=== PATIENT | female | born 1990 | race Two or more races ===

== ENCOUNTER 2021-01-13 08:00 | Outpatient (REF) | payer OTHER, SELFPAY | END 2021-01-13 08:01 | disposition home or self-care (01) | LOC: HO.LAB 08:00 | PROVIDERS: Visit Provider Internal Medicine | DX: Z20.822 Contact with and (suspected) exposure to COVID-19 (principal) | CPT/HCPCS: 36415; C9803; U0003; U0005 ==

== ENCOUNTER 2021-07-25 12:13 | Outpatient (REF) | payer OTHER, SELFPAY | END 2021-07-25 12:14 | disposition home or self-care (01) | LOC: HO.LAB 12:13 | PROVIDERS: Visit Provider Internal Medicine | DX: Z20.822 Contact with and (suspected) exposure to COVID-19 (principal) | CPT/HCPCS: C9803; U0003; U0005 ==

== ENCOUNTER 2021-08-25 09:53 | Outpatient (REF) | payer OTHER, SELFPAY | END 2021-08-25 09:54 | disposition home or self-care (01) | LOC: HO.LAB 09:53 | PROVIDERS: Visit Provider Internal Medicine | DX: Z20.822 Contact with and (suspected) exposure to COVID-19 (principal) | CPT/HCPCS: C9803; U0003; U0005 ==

== ENCOUNTER 2021-09-22 08:07 | Outpatient (REF) | payer OTHER, SELFPAY | END 2021-09-22 08:08 | disposition home or self-care (01) | LOC: HO.LAB 08:07 | PROVIDERS: Visit Provider Internal Medicine | DX: Z20.822 Contact with and (suspected) exposure to COVID-19 (principal) | CPT/HCPCS: C9803; U0003; U0005 ==

== ENCOUNTER 2021-10-06 13:14 | Outpatient (REF) | payer OTHER, SELFPAY | END 2021-10-06 13:15 | disposition home or self-care (01) | LOC: HO.LAB 13:14 | PROVIDERS: Visit Provider Internal Medicine | DX: Z20.822 Contact with and (suspected) exposure to COVID-19 (principal) | CPT/HCPCS: C9803; U0003; U0005 ==

== ENCOUNTER 2021-11-01 08:26 | Outpatient (REF) | payer OTHER, SELFPAY | END 2021-11-01 08:27 | disposition home or self-care (01) | LOC: HO.LAB 08:26 | PROVIDERS: Visit Provider Internal Medicine | DX: Z20.822 Contact with and (suspected) exposure to COVID-19 (principal) | CPT/HCPCS: C9803; U0003; U0005 ==

== ENCOUNTER 2021-11-29 12:27 | Emergency (ER) | payer OTHER, SELFPAY ==
--- NOTE | ~2021-11-29 | XR_ITS ---
EXAMINATION: RIGHT HAND CLINICAL INFORMATION: Pain COMPARISON: None TECHNIQUE: 4 views of the right hand and wrist FINDINGS: There is no evidence of acute fracture or dislocation of the right hand. No significant soft tissue swelling is seen. Joint spaces are maintained. XR/XR hand wrist RT IMPRESSION: No bony abnormality of the right hand and wrist identified.
[2021-11-29 12:29] VITALS: BP 138/71; PULSE 83; RESP 20; TEMP 36.1; O2SAT 100; BMI 39.7
--- NOTE | 2021-11-29 13:46 | ED_ITS ---
HPI - Extremity Problem General Chief complaint: Extremity Problem <MANPREET Balderas Last Filed: 11/29/21 14:31> Stated complaint: R hand pain <MANPREET Balderas Last Filed: 11/29/21 14:31> Time Seen by Provider: 11/29/21 13:05 <MANPREET Balderas Last Filed: 11/29/21 14:31> Source: patient <MANPREET Balderas Last Filed: 11/29/21 14:31> History of Present Illness HPI Narrative: 31-year-old female at 9 weeks gestation presenting to the emergency department complaining of right wrist/forearm pain worsening x4 days. Admits to history of carpal tunnel, denies known injury/trauma, fall, numbness, tingling, weakness, fever/chills. Denies any -related complaints, admits was recently evaluated at [facility] for vaginal bleeding on 11/22, had ultrasound which showed IUP, admits has addit ional appointment/ultrasound on Saturday. Denies bleeding, vaginal discharge, abdominal pain. <MANPREET Balderas Last Filed: 11/29/21 14:31> MD Complaint: extremity pain <MANPREET Balderas Last Filed: 11/29/21 14:31> Onset (ago): day(s) <MANPREET Balderas Last Filed: 11/29/21 14:31> Related Data Allergies/Adverse reactions: Allergies Allergy/AdvReac Type Severity Reaction Status Date / Time Iodinated Contrast Media Allergy Severe ANAPHYLAXIS Unverified 07/21/20 16:03 [IV CONTRAST] contrast dye Allergy Severe anaphylaxis Uncoded 01/27/20 00:00 <MANPREET Balderas Last Filed: 11/29/21 14:31> Review of Systems Review of Systems: Constitutional: No Fever, No Chills ENT/Mouth: No Ear Pain, No Nasal Congestion,No sore throat, No Rhinorrhea, No Swallowing Difficulty Cardiovascular: No Chest Pain, No SOB Respiratory: No Cough, No Wheezing Gastrointestinal: No Nausea, No Vomiting, No Abdominal pain Genitourinary:, No Dysuria, No Urgency, No Flank Pain Musculoskeletal: + joint pain, No Myalgias, No Joint Swelling Skin: No Skin Lesions, No rash Neuro: No Weakness, No Numbness, No Paresthesias <MANPREET Balderas - Last Filed: 11/29/21 14:31> Yes all other systems are reviewed and are negative <MANPREET Balderas - Last Filed: 11/29/21 14:31> [facility] Past Medical History Attestation statement: The following information was validated with the patient. <MANPREET Balderas - Last Filed: 11/29/21 14:31> Medical History: Medical History delivery delivered <MANPREET Balderas - Last Filed: 11/29/21 14:31> Social History Social History: Social History Advance Directives: No Advance Directives Information Provided: Yes Patient : Yes <MANPREET Balderas - Last Filed: 11/29/21 14:31> Physical Exam Vital Signs: Vital Signs: Last Vital Signs Temp 97 F 11/29/21 12:29 Pulse 83 11/29/21 12:29 Resp 20 11/29/21 12:29 BP 138/71 11/29/21 12:29 Pulse Ox 100 11/29/21 12:29 BMI result Body Mass Index 39.7 <MANPREET Balderas - Last Filed: 11/29/21 14:31> Const: General: cooperative, healthy appearing and no acute distress <MANPREET Balderas - Last Filed: 11/29/21 14:31> Orientation/consciousness: patient oriented x3 <MANPREET Balderas - Last Filed: 11/29/21 14:31> Limitations: no limitations <MANPREET Balderas - Last Filed: 11/29/21 14:31> HENMT: Head: Yes normal to inspection and Yes atraumatic <MANPREET Balderas - Last Filed: 11/29/21 14:31> Ears: hearing grossly normal bilaterally <MANPREET Balderas - Last Filed: 11/29/21 14:31> General nose exam: Normal external nose present <MANPREET Balderas - Last Filed: 11/29/21 14:31> Face and sinus: Yes normal facial exam <MANPREET Balderas - Last Filed: 11/29/21 14:31> Eyes: General: appearance normal, both eyes and all related structures <MANPREET Balderas - Last Filed: 11/29/21 14:31> EOM: EOMs intact bilaterally <Josefa Denton PA - Last Filed: 11/29/21 14:31> Neck: Neck: Yes normal visual inspection and Yes no meningeal signs <Josefa Denton PA - Last Filed: 11/29/21 14:31> Resp: Effort & Inspection: normal respiratory effort <Josefa Denton PA - Last Filed: 11/29/21 14:31> Cardio: Rate: regular rate <Josefa Denton PA - Last Filed: 11/29/21 14:31> Heart sounds: S1 normal heart sound present and S2 normal heart sound present <Josefa Denton PA - Last Filed: 11/29/21 14:31> Peripheral pulses: radial pulses present and ulnar radial pulses present <Josefa Denton PA - Last Filed: 11/29/21 14:31> Skin: Rashes: no rashes <Josefa Denton PA - Last Filed: 11/29/21 14:31> Wounds: no wounds <Josefa Denton PA - Last Filed: 11/29/21 14:31> Neuro: General: patient oriented x3 and no meningeal signs <MANPREET Balderas - Last Filed: 11/29/21 14:31> Gait exam (Neuro): Normal gait present <Josefa Denton PA - Last Filed: 11/29/21 14:31> Extrem: Other: Right wrist with moderate tenderness to palpation. + Tinel's sign, decreased ROM secondary to pain. Distal pulses intact. Cap refill WNL. Sensation intact to light touch. Hand ROM intact. No snuffbox tenderness <Josefa Denton PA - Last Filed: 11/29/21 14:31> General: Yes normal to inspection <MANPREET Balderas - Last Filed: 11/29/21 14:31> Course Course Course Narrative: XR hand wrist RT IMPRESSION: No bony abnormality of the right hand and wrist identified.? >> patient placed in volar splint for comfort and stability. please follow-up with your PCP. worrisome signs and symptoms and strict return precautions discussed, she verbalized understanding feel safe for discharge home at this time <MANPREET Balderas - Last Filed: 11/29/21 14:31> MDM - Extremity (Nontraumatic) MDM Narrative Medical decision making narrative: 31-year-old female at 9 weeks gestation presenting to the emergency department complaining of right wrist/forearm pain worsening x4 days. On exam vital signs stable, NAD, physical exam as above. Concern for carpal tunnel vs strain/sprain. Low concern for fracture/dislocation. No evidence of cellulitis. Low concern for septic joint/arthritis Plan: X-rays <MANPREET Balderas - Last Filed: 11/29/21 14:31> Medical Records Attestation: I reviewed the patient's medical records. <MANPREET Balderas - Last Filed: 11/29/21 14:31> Lab Data Attestation: I reviewed the patient's lab results. <MANPREET Balderas - Last Filed: 11/29/21 14:31> Discharge Plan Discharge Clinical Impression: Acute wrist pain <MANPREET Balderas - Last Filed: 11/29/21 14:31> Patient Disposition: Home, Self-Care <MANPREET Balderas - Last Filed: 11/29/21 14:31> Instructions: Arthralgia (ED) <MANPREET Balderas - Last Filed: 11/29/21 14:31> Additional Instructions: Your x-rays unremarkable. Wear splint at home as needed for comfort and stability. Ice and elevate. Please follow-up with her doctor Due to you being Tylenol is one of the only medications you can take for pain If symptoms persist or worsen, pain becomes unbearable, hand begins to look infected, is red, or is warm please return to the emergency department <MANPREET Balderas - Last Filed: 11/29/21 14:31> Referrals: Physician,Unknown J [Primary Care Provider] - 2 days <MANPREET Balderas - Last Filed: 11/29/21 14:31> Interventions: ED Discharge Assessment Last Done: 11/29/21 14:49 <MANPREET Balderas - Last Filed: 11/29/21 14:31> Discharge Date/Time: 11/29/21 15:01 <MANPREET Balderas - Last Filed: 11/29/21 14:31>
[2021-11-29] MEDS: Acetaminophen 325 MG TABLET 650 MG PO (13:59)
== END 2021-11-29 15:01 | disposition home or self-care (01) ==
PROVIDERS: Emergency Provider Emergency Medicine
DX: O26.891 Other specified pregnancy related conditions, first trimester (principal); M25.531 Pain in right wrist; Z3A.09 9 weeks gestation of pregnancy
CPT/HCPCS: 29125; 73110; 73130; 99283; 99284

== ENCOUNTER 2023-01-24 12:35 | Inpatient (IN) | payer OTHER, SELFPAY ==
--- NOTE | ~2023-01-24 | CT_ITS ---
EXAMINATION: CT ABDOMEN AND PELVIS WITHOUT CONTRAST CLINICAL INFORMATION: CVA tenderness. COMPARISON: None available. TECHNIQUE: Multidetector volumetric imaging was performed from the superior aspect of the liver through the pubic symphysis. Sagittal and coronal reformatted images were obtained on the technologist's workstation. This CT examination was performed using dose optimization techniques as appropriate, variously including the following: *Automated exposure control *Adjustment of mA and/or kV according to patient size (this includes techniques or standardized protocols for targeted exams where dose is matched to indication/reason for exam; i.e. extremities or head) *Use of iterative reconstruction technique DLP: 979 mGy-cm FINDINGS: LUNG BASES: The visualized lung bases are unremarkable. LIVER, GALLBLADDER, AND BILIARY TREE: Changes of diffuse hepatic steatosis on this nonenhanced study. No gross biliary ductal dilatation. Moderate hepatomegaly. No focal lesion grossly. Gallstone within the gallbladder lumen without acute inflammatory changes. PANCREAS: Unremarkable. SPLEEN: Mild splenomegaly measuring up to 13 cm. ADRENAL GLANDS: Unremarkable. KIDNEYS AND URETERS: Right kidney enlarged with perinephric stranding. No gross hydronephrosis. No definite stone disease. Left kidney unremarkable. No perinephric collection. BLADDER: Unremarkable. GASTROINTESTINAL TRACT: The small and large bowel are unremarkable. The appendix is unremarkable. ABDOMINAL WALL: Small fat-containing umbilical hernia. LYMPH NODES: Normal. VASCULAR: Unremarkable. PELVIC VISCERA: Unremarkable. OSSEOUS STRUCTURES: Unremarkable. CT/CT abdomen pelvis wo IV con IMPRESSION: Nonspecific findings right kidney on this nonenhanced study but overall findings favor pyelonephritis. No obstruction. Fleischner guidelines were followed.
[2023-01-24 13:03] VITALS: BP 120/65; PULSE 93; RESP 16; TEMP 36.2; O2SAT 97; BMI 39.5
--- NOTE | 2023-01-24 13:03 | ED.GENADULT ---
HPI - General Adult General Chief complaint: Back Pain/Injury <Vishnu Will - Last Filed: 01/24/23 13:05> Stated complaint: kidney issues <Vishnu Will - Last Filed: 01/24/23 13:05> Time Seen by Provider: 01/24/23 20:41 <Vishnu Will - Last Filed: 01/24/23 13:05> Source: patient <Lila Dahl NP - Last Filed: 01/25/23 00:09> Mode of arrival: ambulatory <Lila Dahl NP - Last Filed: 01/25/23 00:09> Limitations: no limitations <Lila Dahl NP - Last Filed: 01/25/23 00:09> History of Present Illness HPI narrative: 32-year-old female presents with 5 days of flank pain abdominal pain nausea vomiting and fevers. <Lila Dahl NP - Last Filed: 01/25/23 00:09> Onset (ago): day(s) (5) <Lila Dahl NP - Last Filed: 01/25/23 00:09> Location: abdomen <Lila Dahl NP - Last Filed: 01/25/23 00:09> Severity: severe <Lila Dahl NP - Last Filed: 01/25/23 00:09> Severity scale (1-10): 9 <Lila Dahl NP - Last Filed: 01/25/23 00:09> Quality: aching and constant <Lila Dahl NP - Last Filed: 01/25/23 00:09> Pain Consistency: constant <Lila Dahl NP - Last Filed: 01/25/23 00:09> Relieving factors: none <Lila Dahl NP - Last Filed: 01/25/23 00:09> Exacerbating factors: eating and movement <Lila Dahl NP - Last Filed: 01/25/23 00:09> Associated symptoms: fever/chills, malaise, nausea/vomiting and weakness <Lila Dahl NP - Last Filed: 01/25/23 00:09> Treatments prior to arrival: NSAID <Lila Dahl NP - Last Filed: 01/25/23 00:09> Related Data Allergies/adverse reactions: Allergies Allergy/AdvReac Type Severity Reaction Status Date / Time Iodinated Contrast Media Allergy Severe ANAPHYLAXIS Verified 01/24/23 20:48 [IV CONTRAST] contrast dye Allergy Severe anaphylaxis Uncoded 01/27/20 00:00 <Vishnu Will - Last Filed: 01/24/23 13:05> Review of Systems Review of Systems: Constitutional: Positive Fever, positive Chills Cardiovascular: No Chest Pain, No SOB Respiratory: No Cough, No Dyspnea Gastrointestinal: Positive Nausea, positive Vomiting, No Diarrhea, positive abdominal Pain Genitourinary: No Dysuria, No Hematuria Musculoskeletal: positive back pain, No Myalgias, No Joint Swelling Skin: No Skin lacerations, No rash Neuro: Positive Weakness, No Numbness, No Paresthesias, No Loss of Consciousness, positive Dizziness, No Headache <Lila Dahl NP - Last Filed: 01/25/23 00:09> Yes all other systems are reviewed and are negative <Lila Dahl NP - Last Filed: 01/25/23 00:09> [facility] Past Medical History Attestation statement: The following information was validated with the patient. <Lila Dahl NP - Last Filed: 01/25/23 00:09> Source: old records reviewed <Lila Dahl NP - Last Filed: 01/25/23 00:09> Medical History: Medical History delivery delivered <Vishnu Will - Last Filed: 01/24/23 13:05> Social History Social History: Social History Alcohol intake: former Smoked in Last 30 Days: No Use of substances other than those prescribed or required for medical reasons: No Advance Directives: No Advance Directives Information Provided: Yes Patient : No <Vishnu Will - Last Filed: 01/24/23 13:05> Physical Exam ED Vital Signs: Vital Signs - 24 hr 01/24/23 13:03 01/24/23 19:52 01/24/23 20:50 Temperature 97.1 F 99.1 F 102.6 F H Pulse Rate 93 95 97 Respiratory Rate 16 19 22 H Blood Pressure 120/65 118/68 125/63 Pulse Oximetry 97 97 96 Oxygen Delivery Method Room Air Room Air Room Air 01/24/23 21:53 01/24/23 22:58 Temperature 100.0 F 99.1 F Pulse Rate 87 85 Respiratory Rate 20 14 Blood Pressure 112/60 110/48 L Pulse Oximetry Oxygen Delivery Method BMI result Body Mass Index 39.5 <Vishnu Will - Last Filed: 01/24/23 13:05> Vital Signs - 24 hr 01/24/23 13:03 01/24/23 19:52 01/24/23 20:50 Temperature 97.1 F 99.1 F 102.6 F H Pulse Rate 93 95 97 Respiratory Rate 16 19 22 H Blood Pressure 120/65 118/68 125/63 Pulse Oximetry 97 97 96 Oxygen Delivery Method Room Air Room Air Room Air 01/24/23 21:53 01/24/23 22:58 Temperature 100.0 F 99.1 F Pulse Rate 87 85 Respiratory Rate 20 14 Blood Pressure 112/60 110/48 L Pulse Oximetry Oxygen Delivery Method BMI result Body Mass Index 39.5 <Lila Dahl NP - Last Filed: 01/25/23 00:09> Appearance: Alert. Oriented X3. Moderate distress. Septic. Eyes: Pupils equal, round and reactive to light. ENT: Pharynx normal. Neck: Normal inspection. Neck supple. CVS: Tachycardic heart rate and rhythm. Pulses normal. Respiratory: No respiratory distress. Breath sounds normal. Abdomen: Soft and diffusely tender with CVA tenderness. Skin: Skin warm and dry. Normal skin color. Normal skin turgor. Extremities: No lower extremity edema. Gait not assessed for safety. Neuro: No motor deficit. No sensory deficit. Cranial nerves 2-12 intact. <Lila Dahl NP - Last Filed: 01/25/23 00:09> Course Course Course Narrative: RME- 32 year old female presents for evaluation of right flank pain and urinary urgency. Reports her PCP told her she had bacteria in her urine. Patient's doctor was concerned for pyelonephritis. Labs and UA ordered. Patient is non toxic appearing <Vishnu Will - Last Filed: 01/24/23 13:05> RME- 32 year old female presents for evaluation of right flank pain and urinary urgency. Reports her PCP told her she had bacteria in her urine. Patient's doctor was concerned for pyelonephritis. Labs and UA ordered. Patient is non toxic appearing 20:44 labs drawn while patient was in the emergency department waiting room. White count elevated at 20. At the time of my evaluation, patient is febrile at 0102 with heart rate of 97. Sepsis alert called. Order for ceftriaxone, lactic, cultures, and fluids at 30 milliliters/kilogram. At this time I have a high suspicion for pyelonephritis she does have positive urinalysis and physical exam is consistent with pyelo. 21:47 CT scan abdomen pelvis positive for pyelonephritis. Discussion with hospitalist, patient will be admitted for pyelonephritis, UTI sepsis. <Lila Dahl NP - Last Filed: 01/25/23 00:09> Consultations Consultation #1: Hospitalist <Lila Dahl NP - Last Filed: 01/25/23 00:09> Medications Administered Discontinued Medications Generic Name Dose Route Start Last Admin Trade Name Scottq PRN Reason Stop Dose Admin Ceftriaxone Sodium 1 gm/ 50 mls @ 100 mls/hr 01/24/23 20:44 01/24/23 22:10 Sodium Chloride IV 01/24/23 21:13 Infused ONCE ONE Infusion Sodium Chloride 3,333.9 mls @ 3,333.9 mls/hr 01/24/23 20:44 01/24/23 21:12 Ns 30 ml/kg infuse over 1 hr (3333.9 ml) 01/24/23 21:43 3,333.9 mls/hr IV Administration .Q1H STA Ketorolac Tromethamine 30 mg 01/24/23 20:44 01/24/23 21:17 Ketorolac Tromethamine 30 Mg/Ml Vial IVPUSH 01/24/23 20:45 30 mg ONCE ONE Administration Morphine Sulfate 4 mg 01/24/23 20:44 01/24/23 21:17 Morphine Sulfate 4 Mg/Ml Cartridge IVPUSH 01/24/23 20:45 4 mg ONCE ONE Administration Protocol Ondansetron HCl 4 mg 01/24/23 20:44 01/24/23 21:17 Ondansetron Hcl 4 Mg/2 Ml Vial IVPUSH 01/24/23 20:45 4 mg ONCE ONE Administration <Vishnu Will - Last Filed: 01/24/23 13:05> Medications Administered Discontinued Medications Generic Name Dose Route Start Last Admin Trade Name Franck PRN Reason Stop Dose Admin Ceftriaxone Sodium 1 gm/ 50 mls @ 100 mls/hr 01/24/23 20:44 01/24/23 22:10 Sodium Chloride IV 01/24/23 21:13 Infused ONCE ONE Infusion Sodium Chloride 3,333.9 mls @ 3,333.9 mls/hr 01/24/23 20:44 01/24/23 21:12 Ns 30 ml/kg infuse over 1 hr (3333.9 ml) 01/24/23 21:43 3,333.9 mls/hr IV Administration .Q1H STA Ketorolac Tromethamine 30 mg 01/24/23 20:44 01/24/23 21:17 Ketorolac Tromethamine 30 Mg/Ml Vial IVPUSH 01/24/23 20:45 30 mg ONCE ONE Administration Morphine Sulfate 4 mg 01/24/23 20:44 01/24/23 21:17 Morphine Sulfate 4 Mg/Ml Cartridge IVPUSH 01/24/23 20:45 4 mg ONCE ONE Administration Protocol Ondansetron HCl 4 mg 01/24/23 20:44 01/24/23 21:17 Ondansetron Hcl 4 Mg/2 Ml Vial IVPUSH 01/24/23 20:45 4 mg ONCE ONE Administration <Lila Dahl NP - Last Filed: 01/25/23 00:09> Medical Decision Making Differential Diagnosis Differential Diagnoses: The differential diagnosis associated with the presentation includes <Lila Dahl NP - Last Filed: 01/25/23 00:09> UTI, sepsis, pyelonephritis, acute abdomen <Lila Dahl NP - Last Filed: 01/25/23 00:09> Admission/Observation Consideration of admission/observation: Escalation of care including admission/observation considered <Lila Dahl NP - Last Filed: 01/25/23 00:09> Patient will require admission <Lila Dahl NP - Last Filed: 01/25/23 00:09> Consult Healthcare Provider Management of the patient was discussed with: Hospitalist <Lila Dahl NP - Last Filed: 01/25/23 00:09> Lab Data MDM Lab Attestation statement: I reviewed the patient's lab results. <Lila Dahl NP - Last Filed: 01/25/23 00:09> Result Diagrams: 01/24/23 13:12 01/24/23 13:12 <Vishnu RadhaAlexisTom Green - Last Filed: 01/24/23 13:05> Labs: Lab Results 01/24/23 01/24/23 01/24/23 Range/Units 13:12 13:12 13:12 WBC 20.4 H (4.8-10.8) X10*3/uL RBC 4.37 (4.20-5.50) X10*6/uL Hgb 12.9 (12.0-16.0) g/dl Hct 39.1 (37.0-47.0) % MCV 89.5 (80.0-98.0) fL MCH 29.5 (27.0-33.0) pg MCHC 33.0 (31.0-35.0) g/dl RDW 12.4 (11.0-16.0) % Plt Count 260 (160-400) X10*3/uL MPV 9.2 L (9.4-12.3) fL Immature Gran % (Auto) 0.5 H (0.0-0.4) % Neut % (Auto) 76.6 H (45-73) % Lymph % (Auto) 14.3 L (20-40) % [place] % (Auto) 8.2 (2-11) % Eos % (Auto) 0.1 (0-4) % Baso % (Auto) 0.3 (0-2) % Lymph # (Auto) 2.9 (1.2-4.9) X10*3/uL [place] # (Auto) 1.7 H (0.1-1.2) X10*3/uL Eos # (Auto) 0.0 (0.0-0.4) X10*3/uL Baso # (Auto) 0.1 (0.0-0.2) X10*3/uL Abs Immat Gran (auto) 0.11 H (0.00-0.03) X10*3/uL Absolute Neuts (auto) 15.6 H (2.0-8.3) x10*3/uL Absolute Nucleated RBC 0.000 (0.0-0.012) X10*3/uL Nucleated RBC % (auto) 0.0 (0.0-0.2) /100WBC Smear Tech's Comments VERIFIED Sodium 141 (135-145) mmol/L Potassium 3.3 (3.3-5.1) mmol/L Chloride 102 (96-108) mmol/L Carbon Dioxide 28 (22-29) mmol/L Anion Gap 14 (12-20) BUN 7 L (9-16) mg/dL Creatinine 0.80 (0.5-1.4) mg/dL Estim Creat Clear Calc 128.7 Estimated GFR > 60 Random Glucose 115 (60-115) mg/dL Lactic Acid (0.5-2.0) mmol/L Calcium 8.9 (8.4-10.2) mg/dL Urine Color Dark Yellow Urine Appearance Cloudy Urine pH 6.0 (5.0-9.0) Ur Specific [place] 1.025 (1.005-1.025) Urine Protein 100 (2+) H (Neg-Trace) mg/dL Urine Glucose (UA) Negative (Negative) mg/dL Urine Ketones Trace (Negative) mg/dL Urine Blood Trace H (Negative) Urine Nitrite Negative (Negative) Ur Leukocyte Esterase Small (1+) H (Negative) Urine RBC 6-10 H (0-2) /HPF Urine WBC 21-50 H (0-5) /HPF Ur Squamous Epith Cells 11-20 (0-2) /HPF Urine Bacteria 1+ (None Seen) Hyaline Casts 0-2 (0-2) /LPF 01/24/23 Range/Units 20:59 WBC (4.8-10.8) X10*3/uL RBC (4.20-5.50) X10*6/uL Hgb (12.0-16.0) g/dl Hct (37.0-47.0) % MCV (80.0-98.0) fL MCH (27.0-33.0) pg MCHC (31.0-35.0) g/dl RDW (11.0-16.0) % Plt Count (160-400) X10*3/uL MPV (9.4-12.3) fL Immature Gran % (Auto) (0.0-0.4) % Neut % (Auto) (45-73) % Lymph % (Auto) (20-40) % [place] % (Auto) (2-11) % Eos % (Auto) (0-4) % Baso % (Auto) (0-2) % Lymph # (Auto) (1.2-4.9) X10*3/uL [place] # (Auto) (0.1-1.2) X10*3/uL Eos # (Auto) (0.0-0.4) X10*3/uL Baso # (Auto) (0.0-0.2) X10*3/uL Abs Immat Gran (auto) (0.00-0.03) X10*3/uL Absolute Neuts (auto) (2.0-8.3) x10*3/uL Absolute Nucleated RBC (0.0-0.012) X10*3/uL Nucleated RBC % (auto) (0.0-0.2) /100WBC Smear Tech's Comments Sodium (135-145) mmol/L Potassium (3.3-5.1) mmol/L Chloride (96-108) mmol/L Carbon Dioxide (22-29) mmol/L Anion Gap (12-20) BUN (9-16) mg/dL Creatinine (0.5-1.4) mg/dL Estim Creat Clear Calc Estimated GFR Random Glucose (60-115) mg/dL Lactic Acid 1.0 (0.5-2.0) mmol/L Calcium (8.4-10.2) mg/dL Urine Color Urine Appearance Urine pH (5.0-9.0) Ur Specific [place] (1.005-1.025) Urine Protein (Neg-Trace) mg/dL Urine Glucose (UA) (Negative) mg/dL Urine Ketones (Negative) mg/dL Urine Blood (Negative) Urine Nitrite (Negative) Ur Leukocyte Esterase (Negative) Urine RBC (0-2) /HPF Urine WBC (0-5) /HPF Ur Squamous Epith Cells (0-2) /HPF Urine Bacteria (None Seen) Hyaline Casts (0-2) /LPF <Vishnu Will - Last Filed: 01/24/23 13:05> Lab Results 01/24/23 01/24/2301/24/23 Range/Units 13:12 13:12 13:12 WBC 20.4 H (4.8-10.8) X10*3/uL RBC 4.37 (4.20-5.50) X10*6/uL Hgb 12.9 (12.0-16.0) g/dl Hct 39.1 (37.0-47.0) % MCV 89.5 (80.0-98.0) fL MCH 29.5 (27.0-33.0) pg MCHC 33.0 (31.0-35.0) g/dl RDW 12.4 (11.0-16.0) % Plt Count 260 (160-400) X10*3/uL MPV 9.2 L (9.4-12.3) fL Immature Gran % (Auto) 0.5 H (0.0-0.4) % Neut % (Auto) 76.6 H (45-73) % Lymph % (Auto) 14.3 L (20-40) % [place] % (Auto) 8.2 (2-11) % Eos % (Auto) 0.1 (0-4) % Baso % (Auto) 0.3 (0-2) % Lymph # (Auto) 2.9 (1.2-4.9) X10*3/uL [place] # (Auto) 1.7 H (0.1-1.2) X10*3/uL Eos # (Auto) 0.0 (0.0-0.4) X10*3/uL Baso # (Auto) 0.1 (0.0-0.2) X10*3/uL Abs Immat Gran (auto) 0.11 H (0.00-0.03) X10*3/uL Absolute Neuts (auto) 15.6 H (2.0-8.3) x10*3/uL Absolute Nucleated RBC 0.000 (0.0-0.012) X10*3/uL Nucleated RBC % (auto) 0.0 (0.0-0.2) /100WBC Smear Tech's Comments VERIFIED Sodium 141 (135-145) mmol/L Potassium 3.3 (3.3-5.1) mmol/L Chloride 102 (96-108) mmol/L Carbon Dioxide 28 (22-29) mmol/L Anion Gap 14 (12-20) BUN 7 L (9-16) mg/dL Creatinine 0.80 (0.5-1.4) mg/dL Estim Creat Clear Calc 128.7 Estimated GFR > 60 Random Glucose 115 (60-115) mg/dL Lactic Acid (0.5-2.0) mmol/L Calcium 8.9 (8.4-10.2) mg/dL Urine Color Dark Yellow Urine Appearance Cloudy Urine pH 6.0 (5.0-9.0) Ur Specific [place] 1.025 (1.005-1.025) Urine Protein 100 (2+) H (Neg-Trace) mg/dL Urine Glucose (UA) Negative (Negative) mg/dL Urine Ketones Trace (Negative) mg/dL Urine Blood Trace H (Negative) Urine Nitrite Negative (Negative) Ur Leukocyte Esterase Small (1+) H (Negative) Urine RBC 6-10 H (0-2) /HPF Urine WBC 21-50 H (0-5) /HPF Ur Squamous Epith Cells 11-20 (0-2) /HPF Urine Bacteria 1+ (None Seen) Hyaline Casts 0-2 (0-2) /LPF 01/24/ Range/Units 20:59 WBC (4.8-10.8) X10*3/uL RBC (4.20-5.50) X10*6/uL Hgb (12.0-16.0) g/dl Hct (37.0-47.0) % MCV (80.0-98.0) fL MCH (27.0-33.0) pg MCHC (31.0-35.0) g/dl RDW (11.0-16.0) % Plt Count (160-400) X10*3/uL MPV (9.4-12.3) fL Immature Gran % (Auto) (0.0-0.4) % Neut % (Auto) (45-73) % Lymph % (Auto) (20-40) % [place] % (Auto) (2-11) % Eos % (Auto) (0-4) % Baso % (Auto) (0-2) % Lymph # (Auto) (1.2-4.9) X10*3/uL [place] # (Auto) (0.1-1.2) X10*3/uL Eos # (Auto) (0.0-0.4) X10*3/uL Baso # (Auto) (0.0-0.2) X10*3/uL Abs Immat Gran (auto) (0.00-0.03) X10*3/uL Absolute Neuts (auto) (2.0-8.3) x10*3/uL Absolute Nucleated RBC (0.0-0.012) X10*3/uL Nucleated RBC % (auto) (0.0-0.2) /100WBC Smear Tech's Comments Sodium (135-145) mmol/L Potassium (3.3-5.1) mmol/L Chloride (96-108) mmol/L Carbon Dioxide (22-29) mmol/L Anion Gap (12-20) BUN (9-16) mg/dL Creatinine (0.5-1.4) mg/dL Estim Creat Clear Calc Estimated GFR Random Glucose (60-115) mg/dL Lactic Acid 1.0 (0.5-2.0) mmol/L Calcium (8.4-10.2) mg/dL Urine Color Urine Appearance Urine pH (5.0-9.0) Ur Specific [place] (1.005-1.025) Urine Protein (Neg-Trace) mg/dL Urine Glucose (UA) (Negative) mg/dL Urine Ketones (Negative) mg/dL Urine Blood (Negative) Urine Nitrite (Negative) Ur Leukocyte Esterase (Negative) Urine RBC (0-2) /HPF Urine WBC (0-5) /HPF Ur Squamous Epith Cells (0-2) /HPF Urine Bacteria (None Seen) Hyaline Casts (0-2) /LPF <Lila Dahl NP - Last Filed: 01/25/23 00:09> Independent Interpretation I performed an independent interpretation of an: CT Scan <Lila Dahl NP - Last Filed: 01/25/23 00:09> Radiology Impression Discussion of test interpretation with radiology: I have reviewed the radiologist's reading. <Lila Dahl NP - Last Filed: 01/25/23 00:09> Radiologist Impression: FINDINGS: LUNG BASES: The visualized lung bases are unremarkable.? LIVER, GALLBLADDER, AND BILIARY TREE: Changes of diffuse hepatic steatosis on this nonenhanced study. No gross biliary ductal dilatation. Moderate hepatomegaly. No focal lesion grossly. Gallstone within the gallbladder lumen without acute inflammatory changes.? PANCREAS: Unremarkable.? SPLEEN: Mild splenomegaly measuring up to 13 cm.? ADRENAL GLANDS: Unremarkable.? KIDNEYS AND URETERS: Right kidney enlarged with perinephric stranding. No gross hydronephrosis. No definite stone disease. Left kidney unremarkable. No perinephric collection.? BLADDER: Unremarkable.? GASTROINTESTINAL TRACT: The small and large bowel are unremarkable. The appendix is unremarkable.? ABDOMINAL WALL: Small fat-containing umbilical hernia.? LYMPH NODES: Normal. VASCULAR: Unremarkable. PELVIC VISCERA: Unremarkable.? OSSEOUS STRUCTURES: Unremarkable.? CT/CT abdomen pelvis wo IV con IMPRESSION: Nonspecific findings right kidney on this nonenhanced study but overall findings favor pyelonephritis. No obstruction.? ? Fleischner guidelines were followed. <Lila Dahl NP - Last Filed: 01/25/23 00:09> External Record Review External record reviewed: Outpatient record and Prior outpatient labs <Lila Dahl NP - Last Filed: 01/25/23 00:09> Prescription Management I considered prescription management with: Antibiotic <Lila Dahl NP - Last Filed: 01/25/23 00:09> Discharge Plan Discharge Clinical Impression: Pyelonephritis, Sepsis <Vishnu Will - Last Filed: 01/24/23 13:05> Patient Disposition: Admitted As Inpatient <Vishnu Will - Last Filed: 01/24/23 13:05>
[2023-01-24 13:17] LABS: Basophils Absolute Auto 0.1 X10*3/uL (0.0-0.2); Basophils Percent Auto 0.3 % (0-2); Eosinophils Percent Auto 0.1 % (0-4); Hematocrit 39.1 % (37.0-47.0); Hemoglobin 12.9 g/dl (12.0-16.0); Imm Gran Abs Auto 0.11 X10*3/uL (0.00-0.03); Imm Gran Pct Auto 0.5 % (0.0-0.4); Lymphocytes Absolute Auto 2.9 X10*3/uL (1.2-4.9); Lymphocytes Percent Auto 14.3 % (20-40); MANUAL DIFF FLAG SCAN; Mean Corpuscular Hemoglobin 29.5 pg (27.0-33.0); Mean Corpuscular Volume 89.5 fL (80.0-98.0); Mean Platelet Volume 9.2 fL (9.4-12.3); Monocytes Absolute Auto 1.7 X10*3/uL (0.1-1.2); Monocytes Percent Auto 8.2 % (2-11); Neutrophils Absolute Auto 15.6 x10*3/uL (2.0-8.3); Neutrophils Percent Auto 76.6 % (45-73); Platelet Count 260 X10*3/uL (160-400); Red Blood Count 4.37 X10*6/uL (4.20-5.50); Red Cell Distribution Width 12.4 % (11.0-16.0); SCAN SMEAR FLAG 1; White Blood Count 20.4 X10*3/uL (4.8-10.8)
[2023-01-24 13:20] LABS: Appearance Urine Cloudy; Color Urine Dark Yellow; Glucose Urine UA Negative (Negative); Leukocyte Esterase Urine Small (1+) (Negative); Nitrite Urine Negative (Negative); Specific Gravity - Urine 1.025 (1.005-1.025); UMIC TRIGGER UACC YES; Urine Blood Trace (Negative); Urine Ketones Trace mg/dL (Negative); Urine Protein 100 (2+) mg/dL (Neg-Trace)
[2023-01-24 13:25] LABS: Bacteria Urine 1+ (None Seen); Hyaline Casts Urine 0-2 /LPF (0-2); UACC Culture Trigger YES; WBC Urine 21-50 /HPF (0-5)
[2023-01-24 13:36] LABS: SLIDE REVIEW VERIFIED
[2023-01-24 13:43] LABS: Anion Gap 14 (12-20); Blood Urea Nitrogen 7 mg/dL (9-16); Calcium 8.9 mg/dL (8.4-10.2); Carbon Dioxide 28 mmol/L (22-29); Chloride 102 mmol/L (96-108); Creatinine Clr Calc Pharmacy 128.7; Estimated Glomerular Filt Rate > 60; Glucose Random 115 mg/dL (60-115); Potassium 3.3 mmol/L (3.3-5.1); Sodium 141 mmol/L (135-145)
[2023-01-24 19:52] VITALS: BP 118/68; PULSE 95; RESP 19; TEMP 37.3; O2SAT 97
--- NOTE | 2023-01-24 20:13 | PC.NURSE ---
Pt a&ox4, reporting lower back pain which is now radiating to the front lower abdomen. Inspection of back reveals back unremarkable. Pt reports tenderness upon palpation of both sides of back.
[2023-01-24 20:50] VITALS: BP 125/63; PULSE 97; RESP 22; TEMP 39.2; O2SAT 96
[2023-01-24] MEDS: SODIUM CHLORIDE 3333.9 ML IV (21:12)
[2023-01-24] MEDS: cefTRIAXone sodium 1 GM in 0.9 % Sodium Chloride 50 ML IV (21:13)
[2023-01-24] MEDS: ondansetron HCL 4 MG/2 ML VIAL IVPUSH (21:17)
[2023-01-24] MEDS: Morphine Sulfate 4 MG/ML CARTRIDGE IVPUSH (21:17)
[2023-01-24] MEDS: Ketorolac Tromethamine 30 MG/ML VIAL IVPUSH (21:17)
--- NOTE | 2023-01-24 21:38 | PC.NURSE ---
at &ox3, febrile, other vss, 20G IV placed left AC, labs drawn, sepsis fluids initiated, medicated per provider order, pt pending CT scan results.
[2023-01-24 21:53] VITALS: BP 112/60; PULSE 87; RESP 20; TEMP 37.8
[2023-01-24 22:58] VITALS: BP 110/48; PULSE 85; RESP 14; TEMP 37.3
--- NOTE | 2023-01-24 23:07 | P.HPHOSP_ITS ---
History of Present Illness Date of Service: 01/24/23 Chief Complaint: Flank pain 32-year-old female with no significant past medical history who presents to the hospital with complaints of flank pain since Saturday. Reports no urinary symptoms, pain is on the right side, nonradiating, constant, she has no fever or chills, states that she went to her PCP, gave a urine sample, was called the next day and told to come to the hospital. Reports no headache or change in vision, no chest pain, no shortness of breath, no abdominal pain, no lower extremity edema. Vitals are significant for fever of 102.6, respiratory rate of 22, blood pressure stable Labs are significant for WBC count of 20.4, UA positive for leukocyte Estrace, WBC, bacteria Abdomen pelvic CT shows pyelonephritis with no obstruction Patient started on IV antibiotics and will be admitted for further management Review of Systems Review of Systems: Yes all other systems are reviewed and are negative PMFSH Medical History delivery delivered Social History Alcohol intake: former Smoked in Last 30 Days: No Use of substances other than those prescribed or required for medical reasons: No Advance Directives: No Advance Directives Information Provided: Yes Patient : No Meds Allergies Allergy/AdvReac Type Severity Reaction Status Date / Time Iodinated Contrast Media Allergy Severe ANAPHYLAXIS Verified 01/24/23 20:48 [IV CONTRAST] contrast dye Allergy Severe anaphylaxis Uncoded 01/27/20 00:00 Active Medications: Current Medications Acetaminophen (Acetaminophen 325 Mg Tablet) 650 mg PO Q6H PRN PRN Reason: Pain, Mild (Pain Scale 1-3) Docusate Sodium (Docusate Sodium 100 Mg Capsule) 100 mg PO DAILY PRN PRN Reason: Constipation Enoxaparin Sodium (Enoxaparin Sodium 40 Mg/0.4 Ml Syringe) 40 mg SUBCUT Q24H МАРИЯ Ceftriaxone Sodium 1 gm/ (Sodium Chloride) 50 mls @ 100 mls/hr IV Q24H МАРИЯ Morphine Sulfate (Morphine Sulfate 4 Mg/Ml Cartridge) 4 mg IVPUSH Q4H PRN; Protocol PRN Reason: Pain, Severe (Pain Scale 7-10) Ondansetron HCl (Ondansetron Hcl 4 Mg/2 Ml Vial) 4 mg IVPUSH Q8H PRN PRN Reason: Nausea and Vomiting Sodium Chloride (0.9 % Sodium Chloride Flush 3 Ml Syringe) 3 ml IVFLUSH QSHIFT [facility] Home Medications Medication Instructions Recorded Confirmed Last Taken Type aripiprazole 5 mg tablet 5 mg PO DAILY 01/25/23 Unknown History hydroxyzine HCl 25 mg tablet 12.5 - 25 mg PO BID PRN anxiety 01/25/23 Unknown History valacyclovir 500 mg tablet 500 mg PO BID 01/25/23 Unknown History Physical Exam Vital Signs and Narrative: Vital Signs: Last Vital Signs Temp 99.1 F 01/24/23 22:58 Pulse 85 01/24/23 22:58 Resp 14 01/24/23 22:58 BP 110/48 L 01/24/23 22:58 Pulse Ox 96 01/24/23 20:50 O2 Del Method Room Air 01/24/23 20:50 BMI result Body Mass Index 39.5 Const: General: cooperative and no acute distress Orientation/consciousness: patient oriented x3 Eyes: General: appearance normal, both eyes and all related structures Resp: Effort & Inspection: normal respiratory effort Auscultation: clear to auscultation bilaterally Cardio: Rate: regular rate Rhythm: regular rhythm GI: Palpation (GI): Soft to palpation Auscultation: normal bowel sounds : Other: Right CVA tenderness Skin: General skin exam: no rashes or lesions noted Neuro: General: patient oriented x3 Cognition (Neuro): normal cognition Extrem: General: Yes normal to inspection and Yes no pedal edema Results Labs 01/24/23 13:12 01/24/23 13:12 Labs: Laboratory Results - last 24 hr 01/24/23 01/24/23 01/24/23 13:12 13:12 13:12 MCV 89.5 MCH 29.5 MCHC 33.0 RDW 12.4 Plt Count 260 MPV 9.2 L Immature Gran % (Auto) 0.5 H Neut % (Auto) 76.6 H Lymph % (Auto) 14.3 L [place] % (Auto) 8.2 Eos % (Auto) 0.1 Baso % (Auto) 0.3 Lymph # (Auto) 2.9 [place] # (Auto) 1.7 H Eos # (Auto) 0.0 Baso # (Auto) 0.1 Abs Immat Gran (auto) 0.11 H Absolute Neuts (auto) 15.6 H Absolute Nucleated RBC 0.000 Nucleated RBC % (auto) 0.0 Smear Tech's Comments VERIFIED Anion Gap 14 Estim Creat Clear Calc 128.7 Estimated GFR > 60 Random Glucose 115 Lactic Acid Calcium 8.9 Urine Color Dark Yellow Urine Appearance Cloudy Urine pH 6.0 Ur Specific [place] 1.025 Urine Protein 100 (2+) H Urine Glucose (UA) Negative Urine Ketones Trace Urine Blood Trace H Urine Nitrite Negative Ur Leukocyte Esterase Small (1+) H Urine RBC 6-10 H Urine WBC 21-50 H Ur Squamous Epith Cells 11-20 Urine Bacteria 1+ Hyaline Casts 0-2 01/24/23 20:59 MCV MCH MCHC RDW Plt Count MPV Immature Gran % (Auto) Neut % (Auto) Lymph % (Auto) [place] % (Auto) Eos % (Auto) Baso % (Auto) Lymph # (Auto) [place] # (Auto) Eos # (Auto) Baso # (Auto) Abs Immat Gran (auto) Absolute Neuts (auto) Absolute Nucleated RBC Nucleated RBC % (auto) Smear Tech's Comments Anion Gap Estim Creat Clear Calc Estimated GFR Random Glucose Lactic Acid 1.0 Calcium Urine Color Urine Appearance Urine pH Ur Specific [place] Urine Protein Urine Glucose (UA) Urine Ketones Urine Blood Urine Nitrite Ur Leukocyte Esterase Urine RBC Urine WBC Ur Squamous Epith Cells Urine Bacteria Hyaline Casts Imaging Radiologist's Impressions: Impressions Abdomen/Pelvis CT 01/24/23 21:14 IMPRESSION: Nonspecific findings right kidney on this nonenhanced study but overall findings favor pyelonephritis. No obstruction. Fleischner guidelines were followed. Assessment and Plan (1) Sepsis: Status: Acute (2) Pyelonephritis: Status: Acute (3) UTI (urinary tract infection): Status: Acute Plan 32-year-old female with no significant past medical history presents [facility] the hosp [facility] with complaints of flank pain found to have UTI/pyelonephritis # sepsis - secondary to UTI/pyelonephritis - has fever, tachypneic, leukocytosis - will treat with IV antibiotics - follow cultures # acute UTI/pyelonephritis - patient positive for UTI, imaging shows pyelonephritis - will treat with IV antibiotics - follow cultures DVT prophylaxis: Lovenox Patient's need for IV antibiotics patient require minimum 2 nights inpatient hospital stay for further management and monitoring Time Spent With Patient Time: Total time managing care of this patient today ____ minutes. Quality Stroke Does the patient have a stroke diagnosis?: No VTE Prior VTE?: No VTE Risk Level:: Medical - moderate - high VTE Device Contraindication: Treatment Not Indicated VTE Drug Contraindication: N/A - Med Ordered
--- NOTE | 2023-01-24 23:23 | PC.NURSE ---
assumed care of patient at 2300 - patient resting comfortably on stretcher. has no current complaints. reports relief of pain but states she is just very tired from the morphine administration. iv fluids running per sepsis protocol. pt on court monitor. vital signs stable. call branch within reach. will CTM
[2023-01-25] VITALS (7 sets, daily range): BP systolic 107–126; BP diastolic 41–71; PULSE 61–88; RESP 16–19; TEMP 36.8–37.3; O2SAT 94–99; BMI 40.9
[2023-01-25 00:36] LABS: COVID-19 Test Negative (Negative); IDNOW Serial# 9DB6401D
--- NOTE | 2023-01-25 01:09 | PC.NURSE ---
iv fluids still running
[2023-01-25] MEDS: Morphine Sulfate 4 MG/ML CARTRIDGE IVPUSH ×5 (02:12→22:57)
[2023-01-25] MEDS: Enoxaparin Sodium 40 MG/0.4 ML SYRINGE SUBCUT ×2 (02:12→21:24)
[2023-01-25 06:50] LABS: MANUAL DIFF FLAG NO
[2023-01-25 06:54] LABS: Basophils Percent Auto 0.3 % (0-2); Eosinophils Percent Auto 0.2 % (0-4); Hematocrit 33.5 % (37.0-47.0); Hemoglobin 10.8 g/dl (12.0-16.0); Imm Gran Abs Auto 0.08 X10*3/uL (0.00-0.03); Imm Gran Pct Auto 0.6 % (0.0-0.4); Lymphocytes Absolute Auto 2.1 X10*3/uL (1.2-4.9); Lymphocytes Percent Auto 15.2 % (20-40); Mean Corpuscular HGB Conc 32.2 g/dl (31.0-35.0); Mean Corpuscular Volume 90.1 fL (80.0-98.0); Mean Platelet Volume 9.3 fL (9.4-12.3); Monocytes Absolute Auto 1.3 X10*3/uL (0.1-1.2); Monocytes Percent Auto 9.1 % (2-11); Neutrophils Absolute Auto 10.5 x10*3/uL (2.0-8.3); Neutrophils Percent Auto 74.6 % (45-73); Platelet Count 225 X10*3/uL (160-400); Red Blood Count 3.72 X10*6/uL (4.20-5.50); Red Cell Distribution Width 12.4 % (11.0-16.0)
[2023-01-25] MEDS: 0.9 % Sodium Chloride Flush 3 ML SYRINGE IVFLUSH ×3 (07:07→22:58)
[2023-01-25] MEDS: Acetaminophen 325 MG TABLET 650 MG PO (07:09)
--- NOTE | 2023-01-25 07:10 | PC.NURSE ---
Patient resting comfortably no distress ntoed, denies chest pain or SOB reports headache tylenol admin. AOx 4 neuros intact. IV flushes wih ease no sign or symptoms of infiltration will CTM
[2023-01-25 07:22] LABS: Anion Gap 16 (12-20); Blood Urea Nitrogen 7 mg/dL (9-16); Carbon Dioxide 20 mmol/L (22-29); Chloride 108 mmol/L (96-108); Estimated Glomerular Filt Rate > 60; Glucose Random 93 mg/dL (60-115); Potassium 3.4 mmol/L (3.3-5.1); Sodium 141 mmol/L (135-145)
--- NOTE | 2023-01-25 08:40 | PHA.MEDREC ---
Pharmacy Consult ? Medication Reconciliation Pharmacy has completed the medication reconciliation. Spoke to patient who knew medications
[2023-01-25 09:28] LABS: HCG Quantitative < 2 mIU/mL
[2023-01-25] MEDS: valACYclovir HCL 500 MG TABLET PO (09:53)
[2023-01-25] MEDS: ARIPiprazole 5 MG TABLET PO (09:53)
--- NOTE | 2023-01-25 11:48 | PC.NURSE ---
Report to jake MAJOR will prepare for transport
[2023-01-25] MEDS: ondansetron HCL 4 MG/2 ML VIAL IVPUSH (13:14)
--- NOTE | 2023-01-25 16:20 | P.PNIM_ITS ---
Subjective Subjective Date of Service: 01/26/23 Interval History: Flank pain Review of Systems still has right flank pain ,nauseated ,no fevers Physical Exam Vital Signs: Vital Signs: Last Vital Signs Temp 99.1 F 01/25/23 14:57 Pulse 83 01/25/23 14:57 Resp 18 01/25/23 14:57 BP 120/59 L 01/25/23 14:57 Pulse Ox 95 01/25/23 14:57 O2 Del Method Room Air 01/25/23 14:57 BMI result Body Mass Index 40.9 Appearance: Alert.? Oriented X3.? not in distress.? cvs: rrr, [id number] , no murmur res: clear to auscultation ,no rhonchii or wheezing abd: no rebound or guarding ,right flank pain/soarness , bs present. ext pulses present , no cyanosis. neuro: axo3 , nonfocal. Objective Data Active Medications Acetaminophen (Acetaminophen 325 Mg Tablet) 650 mg PO Q6H PRN PRN Reason: Pain, Mild (Pain Scale 1-3) Last Admin: 01/25/23 07:09 Dose: 650 mg Documented By: JENNY Albuterol Sulfate (Albuterol Sulfate 90 Mcg 8 Gm Inhaler) 1 puff INHALE QID PRN PRN Reason: Wheezing Aripiprazole (Aripiprazole 5 Mg Tablet) 5 mg PO DAILY [facility] Last Admin: 01/25/23 09:53 Dose: 5 mg Documented By: JENNY Docusate Sodium (Docusate Sodium 100 Mg Capsule) 100 mg PO DAILY PRN PRN Reason: Constipation Enoxaparin Sodium (Enoxaparin Sodium 40 Mg/0.4 Ml Syringe) 40 mg SUBCUT Q24H [facility] Last Admin: 01/25/23 02:12 Dose: 40 mg Documented By: MIKE Fluticasone Propionate (Fluticasone Propionate 100 Mcg Blst.W.Dev) 1 puff INHALE RDAILY [facility] Hydroxyzine HCl (Hydroxyzine Hcl 25 Mg Tablet) 12.5 mg PO BID PRN PRN Reason: anxiety Ceftriaxone Sodium 1 gm/ (Sodium Chloride) 50 mls @ 100 mls/hr IV Q24H [facility] Morphine Sulfate (Morphine Sulfate 4 Mg/Ml Cartridge) 4 mg IVPUSH Q4H PRN; Protocol PRN Reason: Pain, Severe (Pain Scale 7-10) Last Admin: 01/25/23 13:18 Dose: 4 mg Documented By: NATACHA Ondansetron HCl (Ondansetron Hcl 4 Mg/2 Ml Vial) 4 mg IVPUSH Q8H PRN PRN Reason: Nausea and Vomiting Last Admin: 01/25/23 13:14 Dose: 4 mg Documented By: NATACHA Sodium Chloride (0.9 % Sodium Chloride Flush 3 Ml Syringe) 3 ml IVFLUSH QSHIFT [facility] Last Admin: 01/25/23 07:07 Dose: 3 ml Documented By: JENNY Valacyclovir HCl (Valacyclovir Hcl 500 Mg Tablet) 500 mg PO BID [facility] Last Admin: 01/25/23 09:53 Dose: 500 mg Documented By: JENNY Labs 01/25/23 06:29 01/25/23 06:29 Labs: Laboratory Results - last 24 hr 01/24/23 01/25/23 01/25/23 20:59 00:17 06:29 MCV 90.1 MCH 29.0 MCHC 32.2 RDW 12.4 Plt Count 225 MPV 9.3 L Immature Gran % (Auto) 0.6 H Neut % (Auto) 74.6 H Lymph % (Auto) 15.2 L Pickett % (Auto) 9.1 Eos % (Auto) 0.2 Baso % (Auto) 0.3 Lymph # (Auto) 2.1 Pickett # (Auto) 1.3 H Eos # (Auto) 0.0 Baso # (Auto) 0.0 Abs Immat Gran (auto) 0.08 H Absolute Neuts (auto) 10.5 H Absolute Nucleated RBC 0.000 Nucleated RBC % (auto) 0.0 Anion Gap Estim Creat Clear Calc Estimated GFR Random Glucose Lactic Acid 1.0 Calcium Beta HCG, Quant COVID-19 ([facility]) Negative COVID-19 Clin Com See Note 01/25/23 01/25/23 06:29 08:55 MCV MCH MCHC RDW Plt Count MPV Immature Gran % (Auto) Neut % (Auto) Lymph % (Auto) Pickett % (Auto) Eos % (Auto) Baso % (Auto) Lymph # (Auto) Pickett # (Auto) Eos # (Auto) Baso # (Auto) Abs Immat Gran (auto) Absolute Neuts (auto) Absolute Nucleated RBC Nucleated RBC % (auto) Anion Gap 16 Estim Creat Clear Calc 141.0 Estimated GFR > 60 Random Glucose 93 Lactic Acid Calcium 8.0 L D Beta HCG, Quant < 2 COVID-19 ([facility]) COVID-19 Clin Com Microbiology Microbiology Results: Microbiology 01/24/23 Unknown Urine Culture - Final Urine clean catch - Urine kearns top Assessment and Plan (1) UTI (urinary tract infection): Status: Acute (2) Pyelonephritis: Status: Acute (3) Sepsis: Status: Acute Plan 32-year-old female with no significant past medical history presents to the [facility] with complaints of flank pain found to have UTI/pyelonephritis # sepsis - secondary to UTI/pyelonephritis - has fever, tachypneic, leukocytosis,blood/urine cultures pendin - will treat with IV antibiotics - follow cultures # acute UTI/pyelonephritis - patient positive for UTI, imaging shows pyelonephritis - will treat with IV antibiotics - follow cultures DVT prophylaxis: Lovenox inpatient need: sepsis/acute uti- continue iv antibiotics Time Spent With Patient Time: Total time managing care of this patient today ____ minutes. Quality Stroke Does the patient have a stroke diagnosis?: No VTE Prior VTE?: No VTE Risk Level:: Medical - moderate - high VTE Device Contraindication: Treatment Not Indicated VTE Drug Contraindication: N/A - Med Ordered
[2023-01-25] MEDS: cefTRIAXone sodium 1 GM in 0.9 % Sodium Chloride 50 ML IV (21:23)
[2023-01-26 03:21] VITALS: BP 116/57; PULSE 66; RESP 16; TEMP 36.1; O2SAT 99
[2023-01-26 07:21] VITALS: BP 124/70; PULSE 73; RESP 18; TEMP 36.6; O2SAT 99
[2023-01-26] MEDS: 0.9 % Sodium Chloride Flush 3 ML SYRINGE IVFLUSH (08:12)
[2023-01-26] MEDS: Fluticasone Propionate 100 MCG BLST.W.DEV 1 PUFF INHALE (09:35)
--- NOTE | 2023-01-26 10:07 | PM.DS ---
DS: Providers Provider Date of Service: 01/26/23 Date of admission: 01/24/23 23:05 Date of discharge: 01/26/23 Primary care physician: MANPREET Paredes DS: Diagnosis Discharge Diagnosis (1) UTI (urinary tract infection): Status: Acute (2) Pyelonephritis: Status: Acute (3) Sepsis: Status: Acute DS: Summary Hospital Course Hospital Course: 32-year-old female with no significant past medical history who presents to the hospital with complaints of flank pain since Saturday.? Reports no urinary symptoms, pain is on the right side, nonradiating, constant, she has no fever or chills, states that she went to her PCP, gave a urine sample, was called the next day and told to come to the hospital.? Reports no headache or change in vision, no chest pain, no shortness of breath, no abdominal pain, no lower extremity edema. Vitals are significant for fever of 102.6, respiratory rate of 22, blood pressure stable Labs are significant for WBC count of 20.4, UA positive for leukocyte Estrace, WBC, bacteria Abdomen pelvic CT shows pyelonephritis with no obstruction Patient started on IV antibiotics and will be admitted for further management. hospital course: 32y/o F was admitted with sepsis sec to uti: Started on IV antibiotics seems seems to be improving, leukocytosis trending down, no fever, blood culture negative. Urine culture seems to be mixed teto. Patient will be going home with p.o. antibiotics. Plan: Complete course of antibiotics Follow-up outpatient Above management discussed the patient detail and she understand and in agreement with the above plan, time spent 50 minute. Time Spent with Patient Time attestation: Total time managing care of this patient today ____ minutes. Discharge coordination time: Greater than 30 minutes Quality: Safe Use of Opioids Does Pt have an Active Cancer Diagnosis on the Problem List?: No Quality: Stroke Does the patient have a stroke diagnosis?: No Physical Exam Vital Signs: Vital Signs: Last Vital Signs Temp 97.8 F 01/26/23 07:21 Pulse 73 01/26/23 07:21 Resp 18 01/26/23 07:21 BP 124/70 01/26/23 07:21 Pulse Ox 99 01/26/23 07:21 O2 Del Method Room Air 01/26/23 07:21 BMI result Body Mass Index 40.9 Appearance: Alert.? Oriented X3.? not in distress.? cvs: rrr, [id number] , no murmur res: clear to auscultation ,no rhonchii or wheezing abd: no rebound or guarding ,right flank pain/soarness , bs present. ext pulses present , no cyanosis. neuro: axo3 , nonfocal. DS: Data Data Completed and Pending Labs on day of discharge: Preliminary micro results at discharge 01/24/23 20:59 Blood Culture - Preliminary Blood - Venous No growth after 24 hours. 01/24/23 20:59 Blood Culture - Preliminary Blood - Venous No growth after 24 hours. Imaging Chest x-ray: Radiologist's impression: ITS Impressions Abdomen/Pelvis CT 01/24/23 21:14 IMPRESSION: Nonspecific findings right kidney on this nonenhanced study but overall findings favor pyelonephritis. No obstruction. Fleischner guidelines were followed. Discharge Plan Discharge Anticipated Discharge Date/Time: 01/26/23 07:32 Patient Disposition: Home, Self-Care Discharge Diagnosis: Sepsis secondary to UTI. Referrals: Gwendolyn Cunningham PA [Primary Care Provider] - 1 Week Discharge Medications: New cefuroxime axetil 500 mg tablet 500 mg PO BID Qty: 20 0RF Continued valacyclovir 500 mg tablet 500 mg PO BID hydroxyzine HCl 25 mg tablet 12.5 - 25 mg PO BID PRN (Reason: anxiety) aripiprazole 5 mg tablet 5 mg PO DAILY albuterol sulfate 90 mcg/actuation Hfa Aerosol Inhaler 1 inh INHALATION QID PRN (Reason: Wheezing) fluticasone propionate [Flovent HFA] 110 mcg/actuation HFA aerosol inhaler 1 puff INHALATION BID Discharge Orders: Discharge Order (Routine); Ordered 01/26/23 Ordered By: Viviana Beauchamp Diet: Advance to usual diet Activity on Discharge: As tolerated Stand Alone Forms: Patient Portal Discharge page Care Plan Goals: Patient was admitted to urinary infection: Started on IV antibiotics seems seems to be improving, leukocytosis trending down, no fever, blood culture negative. Urine culture seems to be mixed teto. Patient will be going home with p.o. antibiotics. Health Concerns: As above. Plan of Treatment: As above. Assessment: As above.
--- NOTE | 2023-01-26 11:40 | MHC.CM.PN ---
PT REPORTS SHE LIVES AT HOME WITH HER 2 CHILDREN AGES 6Y AND 7M SHE REPORTS SHE IS INDEPENDENT WITH CARE, HAS NO DME AND NO SERVICES PT REPORTS SHE IS NOT COVID VAX SHE COMPLETED A HCP TODAY NAMING HER MOTHER HER AGENT PCP: JEAN CLAUDE SOLOMON PT WILL DC HOME TODAY WITH NO SERVICES FAMILY WILL TRANSPORT
== END 2023-01-26 10:36 | disposition home or self-care (01) | DRG 720 ==
LOC: HO.ED 23:33 → HO.EDOVER 23:36 → HO.S3 01-25 11:31
PROVIDERS: Nurse Practitioner Family; Physician Assistant; Admitting Provider Internal Medicine; Emergency Provider Emergency Medicine; PCP Physician Assistant; Visit Provider Internal Medicine
DX: A41.9 Sepsis, unspecified organism (principal); E66.9 Obesity, unspecified; N10 Acute pyelonephritis; Z20.822 Contact with and (suspected) exposure to COVID-19; Z79.51 Long term (current) use of inhaled steroids; Z68.41 Body mass index [BMI] 40.0-44.9, adult; Z91.041 Radiographic dye allergy status; Z79.899 Other long term (current) drug therapy
CPT/HCPCS: 36415; 74176; 80048; 81001; 83605; 84702; 85025; 87040; 87086; 87635; 99221; 99285; J0696; J1650; J1885; J2270; J2405

== ENCOUNTER 2024-01-28 08:32 | Emergency (ER) | payer OTHER, SELFPAY ==
--- NOTE | ~2024-01-28 | XR_ITS ---
EXAMINATION: XR HAND/WRIST, RIGHT CLINICAL INFORMATION: Pain COMPARISON: Previous x-ray November 2021 TECHNIQUE: PA, lateral, and oblique views of the right hand and wrist. FINDINGS: The bones and soft tissues are normal. No fracture. Alignment is anatomic. Joint spaces are maintained. No erosions or soft tissue calcifications. XR/XR hand wrist RT IMPRESSION: Normal radiographs of the hand and wrist.
[2024-01-28 08:38] VITALS: BP 137/65; PULSE 60; RESP 18; TEMP 36.7; O2SAT 96; BMI 41.2
--- NOTE | 2024-01-28 10:16 | ED.EXTPRO ---
HPI - Extremity Problem General Chief complaint: Extremity Injury, Upper Stated complaint: R hand inj Time Seen by Provider: 01/28/24 09:08 Source: patient and RN notes reviewed Mode of arrival: ambulatory Limitations: no limitations History of Present Illness HPI Narrative: This is a 33-year-old female, with a history of carpal tunnel syndrome, presenting to the emergency department with complaints of atraumatic right wrist pain x3 days. Patient denies any recent trauma, injury, or repetitive motions. 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 She states that she has had worsening pain and immobility to her right wrist over the last 3 days. She denies any fevers, chills, chest pain, shortness of breath, abdominal pain, nausea, vomiting or diarrhea. She is tried wearing her carpal tunnel splints which has provided her with some relief. She states that this does not feel like her carpal tunnel she has had in the past. No numbness or tingling. She is otherwise feeling well. No other complaints or concerns at this time. MD Complaint: extremity pain Onset (ago): day(s) Pain Consistency: constant Location: right and upper extremity Quality: aching Radiation: none Relieving factors: nothing Exacerbating factors: nothing Associated symptoms: denies other symptoms Related Data Home Medications Medication Instructions Recorded Confirmed albuterol sulfate 90 mcg/actuation 1 inh inhalation QID PRN Wheezing 01/25/23 01/25/23 aerosol inhaler aripiprazole 5 mg tablet 5 mg PO DAILY 01/25/23 01/25/23 fluticasone propionate 110 1 puff inhalation BID 01/25/23 01/25/23 mcg/actuation HFA aerosol inhaler (Flovent HFA) hydroxyzine HCl 25 mg tablet 12.5 - 25 mg PO BID PRN anxiety 01/25/23 01/25/23 valacyclovir 500 mg tablet 500 mg PO BID 01/25/23 01/25/23 Previous Rx's Medication Instructions Recorded cefuroxime axetil 500 mg tablet 500 mg PO BID #20 tabs 01/26/23 ibuprofen 600 mg tablet 600 mg PO Q6H PRN pain #30 tabs 01/28/24 Allergies Allergy/AdvReac Type Severity Reaction Status Date / Time Iodinated Contrast Media Allergy Severe ANAPHYLAXIS Verified 01/24/23 20:48 [IV CONTRAST] contrast dye Allergy Severe anaphylaxis Uncoded 01/27/20 00:00 Review of Systems Review of Systems: Yes all other systems are reviewed and are negative Constitutional: Constitutional: Reports as per [facility] Past Medical History Medical History delivery delivered Social History Social History Household Members: Family Housing: House Do you presently have visiting nurse or other home services: No Unable to assess alcohol history related to: Unknown Alcohol intake: former Patient Tobacco Use Status: Never used Tobacco Smoked in Last 30 Days: No e-Cigarette/Vaping Use: Former Use Use of substances other than those prescribed or required for medical reasons: No Advance Directives: No service: No Current occupational status: unemployed Physical Exam Vital Signs: Vital Signs: Last Vital Signs Temp 98.0 F 01/28/24 08:38 Pulse 60 01/28/24 08:38 Resp 18 01/28/24 08:38 BP 137/65 01/28/24 08:38 Pulse Ox 96 01/28/24 08:38 O2 Del Method Room Air 01/28/24 08:38 BMI result Body Mass Index 41.2 Const: General: cooperative, comfortable and no acute distress Orientation/consciousness: patient oriented x3 Limitations: no limitations HEENT: Head: Yes normal to inspection, Yes normocephalic and Yes atraumatic Ears: hearing grossly normal bilaterally General nose exam: Normal external nose present Face and sinus: Yes normal facial exam Mouth: Normal oral and palatal mucosa present, oropharynx normal and moist mucous membranes Throat: Yes posterior oropharynx normal Eyes: General: appearance normal, both eyes and all related structures Eyelids: Yes eyelids normal Conjunctivae: conjunctivae normal Sclerae: sclerae normal Pupils: Equal, round and reactive pupils present EOM: EOMs intact bilaterally Neck: Neck: Yes normal visual inspection, Yes full ROM and Yes no lymphadenopathy Lymphatic: no lymphadenopathy noted Chest: Chest palpation & inspection: normal inspection of the chest Resp: Effort & Inspection: normal respiratory effort and able to speak in complete sentences Auscultation: clear to auscultation bilaterally, no crackles, no rales, no rhonchi and no wheezes Cardio: Rate: regular rate Rhythm: regular rhythm Heart sounds: S1 normal heart sound present and S2 normal heart sound present GI: Inspection: Yes normal to inspection Skin: General skin exam: no rashes or lesions noted Trauma: no lacerations or abrasions Wounds: no wounds Neuro: General: patient oriented x3 and moves all extremities Cranial nerves: Yes Equal, round and reactive pupils present Extrem: Other: Right wrist, with no bony abnormality or obvious swelling. No erythema or edema. Range of motion is full and intact however with pain noted. Negative prior negative Phalen's, negative Tinel's test. She has positive Olive test. Strong radial pulse General: Yes normal to inspection Right upper extremity: normal to inspection Left upper extremity: normal to inspection Right lower extremity: normal to inspection Left lower extremity: normal to inspection Medications Administered Discontinued Medications Generic Name Dose Route Start Last Admin Trade Name Freq PRN Reason Stop Dose Admin Ibuprofen 600 mg 01/28/24 10:17 01/28/24 10:24 Ibuprofen 600 Mg Tablet PO 01/28/24 10:18 600 mg ONCE ONE Administration Medical Decision Making Medical Decision Making MDM Narrative: This is a 33-year-old female, with a history of carpal tunnel syndrome, presenting to the emergency department with complaints of right wrist pain x3 days. No trauma or injury. No repetitious movements however she states that she takes care of her 2-year-old child. On examination, patient has a positive Olive's test, concerning for de Quervain's tenosynovitis. Discussed findings with patient. X-ray was obtained which revealed no acute bony abnormalities. She was given ibuprofen in an apartment. Other differential diagnoses considered carpal tunnel, sprain, strain, less likely septic arthritis. Patient placed in thumb spica splint, given referral to Orthopedics if symptoms worsen. If any new or worsening symptoms occur, she was advised to return. She understands and agrees with plan. Patient stable for discharge. Differential Diagnosis Differential Diagnoses: The differential diagnosis associated with the presentation includes See above Admission/Observation Consideration of admission/observation: Escalation of care including admission/observation considered Escalation of care including admission/observation considered however given workup today not warranted at this time. Radiology Impression Discussion of test interpretation with radiology: I have reviewed the radiologist's reading. Radiologist Impression: EXAMINATION: XR HAND/WRIST, RIGHT CLINICAL INFORMATION: Pain COMPARISON: Previous x-ray November 2021 TECHNIQUE: PA, lateral, and oblique views of the right hand and wrist. FINDINGS: The bones and soft tissues are normal. No fracture. Alignment is anatomic. Joint spaces are maintained. No erosions or soft tissue calcifications. XR/XR hand wrist RT IMPRESSION: Normal radiographs of the hand and wrist. Dictated By: Jenny Chun MD Procedures Orthopedic Splinting/Casting Injury #1: Side: right Upper Extremity Injury Location: wrist Upper Extremity Immobilizer: thumb spica Additional Comments: Thumb spica splint, velcro Discharge Plan Discharge Clinical Impression: De Quervain's tenosynovitis Patient Disposition: Home, Self-Care Instructions: Tenosynovitis (ED) Additional Instructions: You were seen in the emergency department due to right wrist pain. You have physical exam findings concerning for de Quervain's tenosynovitis. This is disorder that causes inflammation within the wrist and is very common. Please take ibuprofen as directed for the next several days to reduce inflammation. I am also placing you in a splint, wear this for comfort and pain relief. I am also referring you to orthopedics, if your symptoms persist over the next several weeks you may want to follow-up with them for further management treatment. If any new or worsening symptoms occur including but not limited to worsening pain, swelling, fevers, chills, please return for re-evaluation. Prescriptions: New ibuprofen 600 mg tablet 600 mg PO Q6H PRN (Reason: pain) Qty: 30 0RF No Action valacyclovir 500 mg tablet 500 mg PO BID hydroxyzine HCl 25 mg tablet 12.5 - 25 mg PO BID PRN (Reason: anxiety) aripiprazole 5 mg tablet 5 mg PO DAILY albuterol sulfate 90 mcg/actuation Hfa Aerosol Inhaler 1 inh INHALATION QID PRN (Reason: Wheezing) fluticasone propionate [Flovent HFA] 110 mcg/actuation HFA aerosol inhaler 1 puff INHALATION BID cefuroxime axetil 500 mg tablet 500 mg PO BID Qty: 20 0RF Referrals: [facility] [Provider Group] Interventions: ED Discharge Assessment Last Done: 01/28/24 11:14
[2024-01-28] MEDS: Ibuprofen 600 MG TABLET PO (10:24)
[2024-01-28 11:14] VITALS: BP 125/65; PULSE 57; RESP 16; TEMP 36.6; O2SAT 98
== END 2024-01-28 11:14 | disposition home or self-care (01) ==
PROVIDERS: Emergency Provider Emergency Medicine; PCP Physician Assistant
DX: S69.91XA Unspecified injury of right wrist, hand and finger(s), initial encounter (principal); M65.4 Radial styloid tenosynovitis [de Quervain]; M25.531 Pain in right wrist; X58.XXXA Exposure to other specified factors, initial encounter; Y93.9 Activity, unspecified; Y92.9 Unspecified place or not applicable; Y99.8 Other external cause status
CPT/HCPCS: 29125; 73110; 73130; 99283; 99284

== ENCOUNTER 2024-08-05 07:47 | Outpatient (AMB) | payer OTHER, SELFPAY ==
[2024-08-05 07:49] VITALS: BMI 41.2
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
== END 2024-08-05 08:13 | disposition home or self-care (01) ==
PROVIDERS: PCP Physician Assistant; Visit Provider Orthopaedic Surgery
DX: M25.561 Pain in right knee (principal)
CPT/HCPCS: 99203; G2211

== ENCOUNTER 2024-08-05 13:29 | Emergency (ER) | payer OTHER, SELFPAY ==
--- NOTE | ~2024-08-05 | XR_ITS ---
EXAMINATION: XR CHEST CLINICAL INFORMATION: Chest pain COMPARISON: Chest x-ray April 01, 2013 TECHNIQUE: 2 views of the chest were obtained. FINDINGS: No significant abnormality is noted involving the heart, lungs, mediastinum, bony thorax or soft tissues. XR/XR chest 2V IMPRESSION: Unremarkable examination. Electronically signed by: Cas Cerrato MD 08/05/2024 02:58 PM EDT RP
--- NOTE | 2024-08-05 13:30 | ECG_ITS ---
Test Reason : chest pain Blood Pressure : / mmHG Vent. Rate : 072 BPM Atrial Rate : 072 BPM P-R Int : 154 ms QRS Dur : 084 ms QT Int : 386 ms P-R-T Axes : 053 013 -03 degrees QTc Int : 422 ms Normal sinus rhythm with sinus arrhythmia Normal ECG When compared with ECG of 12-MAR-2008 09:30, Nonspecific T wave abnormality now evident in Anterior leads Referred By: Rose Brandt Electronically Signed By:ERIKA BRIAN
[2024-08-05 13:32] VITALS: BP 124/61; PULSE 64; RESP 16; TEMP 36.2; O2SAT 100; BMI 40.1
--- NOTE | 2024-08-05 13:38 | ED_ITS ---
HPI - General Adult General Chief complaint: Chest Pain Stated complaint: cp Time Seen by Provider: 08/05/24 16:24 Source: patient Mode of arrival: ambulatory Limitations: no limitations History of Present Illness ED Provider: Hakan REYES HPI narrative: 34-year-old female with pmh of asthma presens to the ED for left sided chest pain with pleurisy since yesterday. Patient states chest wall pain that is worse on movement. Patient denies any leg swelling, calf pain, coughing up blood, or any oral control pills. Patient denies any history of blood clots, travel or recent surgery. Patient states started having chest wall pain after lifting son. Related Data Home Medications ?Medication ?Instructions ?Recorded ?Confirmed albuterol sulfate 90 mcg/actuation 1 inh inhalation QID PRN Wheezing 01/25/23 08/05/24 aerosol inhaler aripiprazole 5 mg tablet 5 mg PO DAILY 01/25/23 08/05/24 fluticasone propionate 110 1 puff inhalation BID 01/25/23 08/05/24 mcg/actuation HFA aerosol inhaler (Flovent HFA) hydroxyzine HCl 25 mg tablet 12.5 - 25 mg PO BID PRN anxiety 01/25/23 08/05/24 valacyclovir 500 mg tablet 500 mg PO BID 01/25/23 08/05/24 Previous Rx's ?Medication ?Instructions ?Recorded cefuroxime axetil 500 mg tablet 500 mg PO BID #20 tabs 01/26/23 ibuprofen 600 mg tablet 600 mg PO Q6H PRN pain #30 tabs 01/28/24 naproxen 500 mg tablet 500 mg PO BID PRN pain 7 days #14 08/05/24 tabs Allergies Allergy/AdvReac Type Severity Reaction Status Date / Time Iodinated Contrast Media Allergy Severe ANAPHYLAXIS Verified 08/05/24 13:40 [IV CONTRAST] contrast dye Allergy Severe anaphylaxis Uncoded 08/05/24 13:40 Review of Systems 2 Review of Systems: chest pain Yes all other systems are reviewed and are negative PMFSH Past Medical History Medical History delivery delivered Social History Social History Household Members: Family Housing: House Do you presently have visiting nurse or other home services: No Unable to assess alcohol history related to: Unknown Alcohol intake: former Patient Tobacco Use Status: Never used Tobacco e-Cigarette/Vaping Use: Former Use Advance Directives: No Advance Directives Information Provided: No Do you have a plan to hurt others: No Plan service: No Current occupational status: unemployed Physical Exam ED Vital Signs: Vital Signs - 24 hr 08/05/24 13:32 08/05/24 15:59 08/05/24 17:24 Temperature 97.2 F 98.4 F 98.1 F Pulse Rate 64 57 60 Respiratory Rate 16 16 16 Blood Pressure 124/61 121/57 L 101/65 Pulse Oximetry 100 100 99 Oxygen Delivery Method Room Air Room Air Room Air 08/05/24 18:10 Temperature 98.1 F Pulse Rate 60 Respiratory Rate 16 Blood Pressure 101/65 Pulse Oximetry 99 Oxygen Delivery Method Room Air BMI result Body Mass Index 40.1 Const General: cooperative, healthy appearing, comfortable, no acute distress, well developed, alert, awake and Physically active Orientation/consciousness: patient oriented x3 HENMT Head: Yes normal to inspection, Yes No palpable skull fracture present, Yes normocephalic and Yes atraumatic Eyes General: appearance normal, both eyes and all related structures Neck Neck: Yes normal visual inspection, Yes full ROM, Yes no lymphadenopathy, Yes no meningeal signs, Yes trachea midline, Yes supple, No anterior neck swelling and No tender Chest Chest palpation & inspection: normal inspection of the chest Chest/axillae images: 2 1. Tenderness on palpation. Negative swelling, ecchymosis, erythema, rash, crepitus, or deformity. Resp Effort & Inspection: normal respiratory effort and able to speak in complete sentences Auscultation: clear to auscultation bilaterally Cardio Jugular venous distension: no JVD Heart sounds: S1 normal heart sound present and S2 normal heart sound present GI Inspection: Yes normal to inspection Palpation (GI): Soft to palpation, not firm, nontender, no guarding and not rigid General: Yes no CVA tenderness Back/Spine/Pelvis Back: no CVA tenderness and No back tenderness Skin General skin exam: no rashes or lesions noted, elasticity normal and turgor normal Neuro General: patient oriented x3, gait normal, tone normal, moves all extremities, Normal light touch and pain sensation, no meningeal signs, no focal motor deficits, CN's II-XI intact bilaterally and normal sensation to monofilament Extrem Other: Bilateral lower extremity negative for swelling, pitting edema, or calf tenderness. General: Yes normal to inspection and Yes full ROM Psych Appearance: grossly normal, well kempt and not disheveled Course Course Course Narrative: This is a rapid medical exam performed by Kitty Brandt NP: Additional HPI, ROS, PE not included below will be deferred to primary provider. Patient is a 34-year-old female with history of asthma, bilateral oopherectomy presenting with complaint of sharp chest pain since last night. Worse with inspiration. Plan: EKG, labs, CXR Medical Decision Making Medical Decision Making MDM Narrative: [age] of female presents to ED for shortness of breath, chest pain on range of motion of the torso/extremities and pleurisy. Patient denies any recent trauma, recent long travel, recent surgery, recent control use, any history of blood clots. EKG sinus rhythm. Two troponins negative. D-dimer is negative. Perc score is 0. BNP negative. Patient is safe for discharge. Patient is explained worrisome signs and informed to follow up with primary care provider. Not suspecting PE, myocardial infarction, CHF, pneumonia, hemothorax, pneumothorax, and aortic dissection. Differential Diagnosis Differential Diagnoses: The differential diagnosis associated with the presentation includes (PE, pneumonia, pneumothorax, hemothorax, chest wall strain) Admission/Observation Consideration of admission/observation: Escalation of care including admission/observation considered Lab Data 08/05/24 14:17 08/05/24 14:17 Labs: Lab Results 08/05/24 08/05/24 Range/Units 14:17 16:59 WBC 10.9 H (4.8-10.8) X10*3/uL RBC 4.39 (4.20-5.50) X10*6/uL Hgb 13.6 D (12.0-16.0) g/dl Hct 40.5 D (37.0-47.0) % MCV 92.3 (80.0-98.0) fL MCH 31.0 (27.0-33.0) pg MCHC 33.6 (31.0-35.0) g/dl RDW 12.4 (11.0-16.0) % Plt Count 237 (160-400) X10*3/uL MPV 10.1 (9.4-12.3) fL Immature Gran % (Auto) 0.4 (0.0-0.4) % Neut % (Auto) 62.8 (45-73) % Lymph % (Auto) 29.2 (20-40) % [place] % (Auto) 5.2 (2-11) % Eos % (Auto) 1.8 (0-4) % Baso % (Auto) 0.6 (0-2) % Lymph # (Auto) 3.2 (1.2-4.9) X10*3/uL [place] # (Auto) 0.6 (0.1-1.2) X10*3/uL Eos # (Auto) 0.2 (0.0-0.4) X10*3/uL Baso # (Auto) 0.1 (0.0-0.2) X10*3/uL Abs Immat Gran (auto) 0.04 H (0.00-0.03) X10*3/uL Absolute Neuts (auto) 6.8 (2.0-8.3) x10*3/uL Absolute Nucleated RBC 0.000 (0.0-0.012) X10*3/uL Nucleated RBC % (auto) 0.0 (0.0-0.2) /100WBC PT 11.8 (10.9-12.4) SEC INR 1.0 (0.9-1.1) D-Dimer High Sensitivty < 150 NG/ML Sodium 140 (135-145) mmol/L Potassium 4.2 (3.3-5.1) mmol/L Chloride 108 (96-108) mmol/L Carbon Dioxide 27 (22-29) mmol/L Anion Gap 9 L (12-20) BUN 8 L (9-16) mg/dL Creatinine 0.79 (0.5-1.4) mg/dL Estim Creat Clear Calc 129.0 Estimated GFR > 60 Random Glucose 94 (60-115) mg/dL Calcium 8.8 D (8.4-10.2) mg/dL Total Bilirubin 0.2 (0.0-1.0) mg/dL AST 13 (5-31) U/L ALT 10 (0-31) U/L Alkaline Phosphatase 55 (39-117) U/L Troponin I High Sens < 2.7 < 2.7 (<3.5-17.0) ng/L B-Natriuretic Peptide 11 (<100) pg/mL Total Protein 6.9 (6.5-8.0) g/dL Albumin 4.0 (3.5-5.0) g/dL Beta HCG, Quant < 2 mIU/mL Independent Interpretation I performed an independent interpretation of an: EKG (Normal sinus rhythm) and Plain X-Ray Radiology Impression Discussion of test interpretation with radiology: I have reviewed the radiologist's reading. Independent Historian Clinical information obtained from an independent historian. History obtained from or confirmed by: Other (Patient) External Record Review External record reviewed: Other (Prior visits) Prescription Management I considered prescription management with: Pain Medication Discharge Plan Discharge Clinical Impression: Chest wall pain, Chest pain Patient Disposition: Home, Self-Care Instructions: Chest Pain (ED), Chest Wall Pain (ED) Additional Instructions: Recommend follow-up with your primary care provider. Return to the ED immediately for any chest pain, shortness of breath, coughing up blood, leg swelling, calf pain, chest pain/shortness of breath on exertion, intractable fever, chills, weakness, dizziness, or any other concerning symptoms. Prescriptions: New naproxen 500 mg tablet 500 mg PO BID PRN (Reason: pain) 7 Days Qty: 14 0RF No Action valacyclovir 500 mg tablet 500 mg PO BID hydroxyzine HCl 25 mg tablet 12.5 - 25 mg PO BID PRN (Reason: anxiety) aripiprazole 5 mg tablet 5 mg PO DAILY albuterol sulfate 90 mcg/actuation Hfa Aerosol Inhaler 1 inh INHALATION QID PRN (Reason: Wheezing) fluticasone propionate [Flovent HFA] 110 mcg/actuation HFA aerosol inhaler 1 puff INHALATION BID cefuroxime axetil 500 mg tablet 500 mg PO BID Qty: 20 0RF ibuprofen 600 mg tablet 600 mg PO Q6H PRN (Reason: pain) Qty: 30 0RF Stand Alone Forms: Work/School Release Interventions: ED Discharge Assessment Last Done: 08/05/24 18:10 Discharge Date/Time: 08/05/24 18:10 Print Language: Trinidadian
[2024-08-05 14:21] LABS: MANUAL DIFF FLAG NO
[2024-08-05 14:24] LABS: Basophils Absolute Auto 0.1 X10*3/uL (0.0-0.2); Basophils Percent Auto 0.6 % (0-2); Eosinophils Absolute Auto 0.2 X10*3/uL (0.0-0.4); Eosinophils Percent Auto 1.8 % (0-4); Hematocrit 40.5 % (37.0-47.0); Hemoglobin 13.6 g/dl (12.0-16.0); Imm Gran Abs Auto 0.04 X10*3/uL (0.00-0.03); Imm Gran Pct Auto 0.4 % (0.0-0.4); Lymphocytes Absolute Auto 3.2 X10*3/uL (1.2-4.9); Lymphocytes Percent Auto 29.2 % (20-40); Mean Corpuscular HGB Conc 33.6 g/dl (31.0-35.0); Mean Corpuscular Volume 92.3 fL (80.0-98.0); Mean Platelet Volume 10.1 fL (9.4-12.3); Monocytes Absolute Auto 0.6 X10*3/uL (0.1-1.2); Monocytes Percent Auto 5.2 % (2-11); Neutrophils Absolute Auto 6.8 x10*3/uL (2.0-8.3); Neutrophils Percent Auto 62.8 % (45-73); Platelet Count 237 X10*3/uL (160-400); Red Blood Count 4.39 X10*6/uL (4.20-5.50); Red Cell Distribution Width 12.4 % (11.0-16.0); White Blood Count 10.9 X10*3/uL (4.8-10.8)
[2024-08-05 14:39] LABS: Prothrombin Time 11.8 SEC (10.9-12.4)
[2024-08-05 14:47] LABS: Alanine Aminotransferase 10 U/L (0-31); Alkaline Phosphatase 55 U/L (39-117); Anion Gap 9 (12-20); Aspartate Amino Transferase 13 U/L (5-31); Bilirubin Total 0.2 mg/dL (0.0-1.0); Blood Urea Nitrogen 8 mg/dL (9-16); Calcium 8.8 mg/dL (8.4-10.2); Carbon Dioxide 27 mmol/L (22-29); Chloride 108 mmol/L (96-108); Estimated Glomerular Filt Rate > 60; Glucose Random 94 mg/dL (60-115); Potassium 4.2 mmol/L (3.3-5.1); Sodium 140 mmol/L (135-145); Total Protein 6.9 g/dL (6.5-8.0)
[2024-08-05 14:48] LABS: Troponin-I High Sensitivity < 2.7 ng/L (<3.5-17.0)
[2024-08-05 14:50] LABS: HCG Quantitative < 2 mIU/mL
[2024-08-05 15:59] VITALS: BP 121/57; PULSE 57; RESP 16; TEMP 36.9; O2SAT 100
--- OUTSIDE RECORDS SUMMARY | 2024-08-05 16:24 | XMS_ITS | Continuity of Care Document ---
Author Organization [facility] ter Address [address] [place] [address]- Encounter [facility] [place] Date(s): 11/27/23 - 11/27/[address] [address]- Attending Physician: Sotero ROBLEDO, Tyler Mcfarland
--- OUTSIDE RECORDS SUMMARY | 2024-08-05 16:24 | XMS_ITS | Continuity of Care Document ---
Author Organization [facility] ter Address [address] [place] [id number]- Care Team Providers Care Ladder Operator Name Role Phone Cassie boyliz FERRARA Carmelita Primary Care Lucia garza [place] [facility] [place] - 11/[place]/[address] [address] Discharge Disposition: A-D/C Home Attending Physician: Cristina Higgins MD Admitting Physician: Cristina Higgins MD Referring Physician: Cristina Higgins MD Allergies, Adverse Reactions, Alerts Substance Reaction Severity Status Contrast Dye hives Active Immunizations Given and Recorded Vaccine Date Status Refusal Reason influenza virus vaccine, inactivated 08/09/10 Give n pneumococcal 23-valent vaccine 08/09/10 Given Medications Concerta 72, mg, By Mouth, Daily, 0, 0, 09/17/08 4:45:50, Print TENA Number, [id number], Constant Indicator Start Date: 09/17/08 Status: Ordered ferrous sulfate 325 mg oral tablet 1 tablet = 325 mg, By Mouth, 3 times a day, # 270 tablet, 0 Refills, Maintenance, 06/12/16 22:13:27, Tablet Start Date: 06/12/16 Status: Ordered Flovent 110 mcg Inhaler HFA Refills 0, Maintenance, 05/10/20 12:12:00 EDT Start Date: 05/10/20 Status: Ordered Multivitamins By Mouth, Daily, 0 Refills, Maintenance, 06/12/16 22:12:29 Start Date: 06/12/16 Status: Ordered ProAir HFA 90 mcg/inh inhalation aerosol with adapter 2 puffs, Inhalation, 4 times a day, 0 Refills, Maintenance, 04/03/15 23:48:29 Start Date: 04/03/15 Status: Ordered Valtrex 500 mg oral tablet 500 mg, 1, tablet, By Mouth, Every 12 hours, Refills 0, Maintenance, 07/15/16 1:22:49 Start Date: 07/15/16 Status: Ordered Problem List Condition Effective Dates Status Health Status Inform ant Asthma(Confirmed) Active Genital HSV(Confirmed) 1 Active (Confirmed) Active 1currently n Valtrex Procedures Procedure Date Related Diagnosis Body Site Status [place] tooth Completed Vital Signs Most recent to oldest [Reference Range]: 1 Height 168 cm (11/22/21 5:40 PM) Oxygen Saturation [94-100 %] 100 % (11/22/21 5:40 PM) Pulse Rate [55-90 bpm] 79 bpm (11/22/21 5:40 PM) Blood Pressure [90-138/55-84 mm Hg] 119/ 60mm Hg (11/22/21 5:40 PM) Respiratory Rate [16-30 br/min] 18 br/mi n (11/22/21 5:40 PM) Temperature [96.8-100.4 DegF] 98.7 DegF (11/22/21 5:40 PM) Mode of Delivery (Oxygen) Room air (11/22/21 5:40 PM) Blood pressure sites Arm, right (11/22/21 5:40 PM) Temperature Route Oral (11/22/21 5:40 PM) Social History Social History Type Response Smoking Status Former smoker entered on: 02/25/16 Sex
--- OUTSIDE RECORDS SUMMARY | 2024-08-05 16:24 | XMS_ITS | Continuity of Care Document ---
Author Organization [facility] Address [address] [place] [address]- Care Team Providers Care Rn Testing Name Role Phone AnthonynicoleCarmelita Guerrero DO Primary Care Lucia garza En[place] [facility] [place] Date(s): 02/12/22 - 03/14/22 [facility] [address] [place] [address] Allergies, Adverse Reactions, Alerts Substance Reaction Severity Status Contrast Dye hives Active Immunizations Given and Recorded Vaccine Date Status Refusal Reason influenza virus vaccine, inactivated 08/09/10 Give n pneumococcal 23-valent vaccine 08/09/10 Given Medications Concerta 72, mg, By Mouth, Daily, 0, 0, 09/17/08 4:45:50, Print TENA Number, [id number], Constant Indicator Start Date: 09/17/08 Status: Ordered [...] ant Asthma(Confirmed) Active Genital HSV(Confirmed) 1 Active 1currently n Valtrex Social History Social History Type Response Smoking Status Former smoker entered on: 02/25/16 Sex
--- OUTSIDE RECORDS SUMMARY | 2024-08-05 16:24 | XMS_ITS | Continuity of Care Document ---
Author Organization [facility] ter Address [address] [place] [address]- Care Team Providers Care Diamond Assorter Name Role Phone Carmelita Remy DO Primary Care Lucia garza Encounter [facility] [place] Date(s): 11/29/23 - 03/11/[address] [address] Attending Physician: Tyler Bey MD Admitting Physician: Tyler Bey MD Allergies, Adverse Reactions, Alerts Substance Reaction Severity Status Contrast Dye hives Active Immunizations Given and Recorded Vaccine Date Status Refusal Reason influenza virus vaccine, inactivated 08/09/10 Give n pneumococcal 23-valent vaccine 08/09/10 Given Medications Colace sodium 100 mg oral capsule 100 mg, 1, capsule, By Mouth, 2 times a day, PRN, # 40 capsule, Refills 0, Tot. Refills 0, Maintenance, for constipation, 06/16/22 12:52:00 EDT, Route to Pharmacy Electronically, [facility]/pharmacy #[id number], Partial fill upon patient request if the prescriptio... Start Date: 06/16/22 Status: Ordered Concerta 72, mg, By Mouth, Daily, 0, 0, 09/17/08 4:45:50, Print TENA Number, [id number], Constant Indicator Start Date: 09/17/08 Status: Ordered ferrous sulfate 325 mg oral tablet 1 tablet = 325 mg, By Mouth, 3 times a day, # 270 tablet, 0 Refills, Maintenance, 06/12/16 22:13:27, Tablet Start Date: 06/12/16 Status: Ordered Flovent 110 mcg Inhaler HFA Refills 0, Maintenance, 05/10/20 12:12:00 EDT Start Date: 05/10/20 Status: Ordered ibuprofen 600 mg oral tablet 600 mg, 1, tablet, By Mouth, Every 6 hours, # 40 tablet, Refills 1, Tot. Refills 1, Maintenance, 06/16/22 12:52:00 EDT, Route to Pharmacy Electronically, [facility]/pharmacy #[id number], Partial fill upon patientrequest if the prescription is for a schedule II op... Start Date: 06/16/22 Status: Ordered Multivitamins By Mouth, Daily, 0 Refills, Maintenance, 06/12/16 22:12:29 Start Date: 06/12/16 Status: Ordered ProAir HFA 90 mcg/inh inhalation aerosol with adapter 2 puffs, Inhalation, 4 times a day, 0 Refills, Maintenance, 04/03/15 23:48:29 Start Date: 04/03/15 Status: Ordered Tylenol Extra Strength 500 mg oral tablet 1 tablet = 500 mg, By Mouth, Every 6 hours, not to exceed 4000 mg/day, # 50 tablet, 1 Refills, Maintenance, 06/16/22 12:52:00 EDT, [facility]/pharmacy #[id number], Partial fill upon patient request if the prescription is for a schedule II opioid drug., 168, cm, 08... Start Date: 06/16/22 Status: Ordered Valtrex 500 mg oral tablet 500 mg, 1, tablet, By Mouth, Every 12 hours, Refills 0, Maintenance, 07/15/16 1:22:49 Start Date: 07/15/16 Status: Ordered Problem List Condition Confirmation Course Effective Dates Status Health St [facility] Informant Asthma Confirmed Active Genital HSV 1 Confirmed Active Severe obesity Confirmed Active 1currently n Valtrex Social History Social History Type Response Smoking Status Former smoker entered on: 02/25/16 Sex History and physical note * Event Display: History and Physical Hospital Authored Date: Patient Care team information Care Team Personnel Name: Carmelita Remy DO Position: S Physician - Primary Care Member Role: PCP Address: Address: [address] [place] [address]- Care Team Related Persons Name: RIKKI COFFEY Address: home [address] [place] [address] Name: KAREN COFFEY Address: [id number] Address: home [address] [place] [id number] Name: ALIRIO MOJICA Address: [address] [place] [address] Name: KAHLIL BURNETTE Address: home [address] [place] [address] Name: NADINE ESPINOSA Address: home [address] [place] [address]
--- OUTSIDE RECORDS SUMMARY | 2024-08-05 16:24 | XMS_ITS | Continuity of Care Document ---
Author Organization [facility] ter Address [address] [place] [address]- Care Team Providers Care Ledger Clerk Name Role Phone Cassie Lashon Carmelita Primary Care Lucia garza [place] [facility] [place] 04/30/22 - 04/30/[address] [address] Discharge Disposition: A-D/C Home Attending Physician: Tyler Bey MD Admitting Physician: Tyler Bey MD Referring Physician: Tyler Bey MD Allergies, Adverse Reactions, Alerts Substance Reaction Severity Status Contrast Dye hives Active Immunizations Given and Recorded Vaccine Date Status Refusal Reason influenza virus vaccine, inactivated 08/09/10 Give n pneumococcal 23-valent vaccine 08/09/10 Given Medications Concerta 72, mg, By Mouth, Daily, 0, 0, 09/17/08 4:45:50, Print TENA Number, [id number], Constant Indicator Start Date: 09/17/08 Status: Ordered [...] Genital HSV(Confirmed) 1 Active 1currently n Valtrex Vital Signs Most recent to oldest [Reference Range]: 1 Height 167 cm (04/30/22 1:33 AM) Weight 133.1 kg (04/30/22 1:30 AM) Pulse Rate [55-90 bpm] 99 bpm *H* (04/30/22 1:33 AM) Blood Pressure [90-138/55-84 mm Hg] 115/ 72mm Hg (04/30/22 1:33 AM) Respiratory Rate [16-30 br/min] 18 br/mi n (04/30/22 1:33 AM) Temperature [96.8-100.4 DegF] 98.8 DegF (04/30/22 1:33 AM) Blood pressure sites Arm, right (04/30/22 1:33 AM) Temperature Route Oral (04/30/22 1:33 AM) Dry Weight 133.1 kg (04/30/22 1:30 AM) Weight Obtained Via Standing scale (04/30/22 1:30 AM) Social History Social History Type Response Smoking Status Former smoker entered on: 02/25/16 Sex
--- OUTSIDE RECORDS SUMMARY | 2024-08-05 16:24 | XMS_ITS | Continuity of Care Document ---
Author Organization [facility] Address [address] [place] [address]- Care Team Providers Care Subsea Engineer Name Role Phone Cassie Lashon FERRARA Carmelita Primary Care Lucia garaz [place] [facility] [place](s): 01/24/22 - 02/23/22 [facility] [address] [place] [id number] Allergies, Adverse Reactions, Alerts Substance Reaction Severity Status Contrast Dye hives Active Immunizations Given and Recorded Vaccine Date Status Refusal Reason influenza virus vaccine, inactivated 08/09/10 Give n pneumococcal 23-valent vaccine 08/09/10 Given Medications Concerta 72, mg, By Mouth, Daily, 0, 0, 09/17/08 4:45:50, Print TENA Number, [id number], Constant Indicator Start Date: 09/17/08 Status: Ordered [...]
--- OUTSIDE RECORDS SUMMARY | 2024-08-05 16:24 | XMS_ITS | Continuity of Care Document ---
Author Organization [facility] Address [address] [place] [address]- Care Team Providers Care Family Development Specialist Name Role Phone Cassie Lashon FERRARA Carmelita Primary Care Lucia garza [place] [facility] [place] - 07/05/22 [facility] [address] [place] [id number] Allergies, Adverse Reactions, Alerts Substance Reaction [...] 06/16/22 12:52:00 EDT, Route to Pharmacy Electronically, [facility]/pharmacy #[id number], Partial fill upon patient request if the prescriptio... Start Date: 06/16/22 Status: Ordered Concerta 72, mg, By Mouth, Daily, 0, 0, 09/17/08 4:45:50, Print TENA Number, [id number], Constant Indicator Start Date: 09/17/08 Status: Ordered [...] 06/16/22 12:52:00 EDT, Route to Pharmacy Electronically, [facility]/pharmacy #[id number], Partial fill upon patientrequest if the prescription is for a schedule II op... Start Date: 06/16/22 Status: Ordered oxyCODONE 5 mg oral tablet 5 mg, 1, tablet, By Mouth, Every 4 hours, # 10 tablet, Refills 0, Tot. Refills 0, Acute 07/17/22 12:53:00 EDT, 06/16/22 12:53:00 EDT, Route to Pharmacy Electronically, [facility]/pharmacy #[id number], Partial fill upon patient request if the prescription is for a... Start Date: 06/16/22 Stop Date: 07/17/22 Status: Ordered Multivitamins By Mouth, Daily, 0 [...] tablet, 1 Refills, Maintenance, 06/16/22 12:52:00 EDT, [facility]/pharmacy #[id number], Partial fill upon patient request [...] ant Asthma(Confirmed) Active Genital HSV(Confirmed) 1 Active Severe obesity(Confirmed) Active 1currently n Valtrex Social History Social History Type Response Smoking Status Former smoker entered on: 02/25/16 Sex Care Team Personnel Name: LucianadorotheaCarmelita Guerrero DO Address: [address] [place] [address]
--- OUTSIDE RECORDS SUMMARY | 2024-08-05 16:24 | XMS_ITS | Continuity of Care Document ---
Author Organization [facility] ter Address [address] [place] [address]- Care Team Providers Care Pot Puncher Name Role Phone Cassie Carmelita Oates DO Primary Care Lucia garza Encounter [facility] [place] Date(s): 02/01/22 - 02/02/[address] [address]- Encounter Diagnosis Influenza A(Final) - 02/02/22 Discharge Disposition: A-D/C Home Attending Physician: Bhakti Holley MD Admitting Physician: Bhakti Holley MD Referring Physician: Not on Staff, Referring MD Allergies, Adverse Reactions, Alerts Substance Reaction Severity Status Contrast Dye hives Active Immunizations Given and Recorded Vaccine Date Status Refusal Reason influenza virus vaccine, inactivated 08/09/10 Give n pneumococcal 23-valent vaccine 08/09/10 Given Medications Concerta 72, mg, By Mouth, Daily, 0, 0, 09/17/08 4:45:50, Print TENA Number, [id number], Constant Indicator Start Date: 09/17/08 Status: Ordered [...] 04/03/15 23:48:29 Start Date: 04/03/15 Status: Ordered Tamiflu 75 mg oral capsule 1 capsule = 75 mg, By Mouth, 2 times a day, for 5 days, # 10 capsule, 0 Refills, Acute 02/07/22 2:47:00 EDT, 02/02/22 2:47:00 EDT, Capsule, [facility]acy [facility][id number], Partial fill upon patient request if the prescription is for a schedule II opioid drug., 16... Start Date: 02/02/22 Stop Date: 02/07/22 Status: Ordered Valtrex 500 mg oral tablet 500 mg, 1, tablet, By Mouth, Every 12 hours, Refills 0, Maintenance, 07/15/16 1:22:49 Start Date: 07/15/16 Status: Ordered Problem List Condition Effective Dates Status Health Status Inform ant Asthma(Confirmed) Active Genital HSV(Confirmed) 1 Active 1currently n Valtrex Vital Signs Most recent to oldest [Reference Range]: 1 2 3 Oxygen Saturation [94-100 %] 99 % (02/02/22 3:40 AM) 98 % (02/02/22 2:28 AM) 97 % (02/02/22 1:59 AM) Pulse Rate [55-90 bpm] 89 bpm (02/02/22 3:40 AM) 96 bpm *H* (02/02/22 2:28 AM) 98 bpm *H* (02/02/22 1:59 AM) Blood Pressure [90-138/55-84 mm Hg] 120/64mm Hg (02/02/22 3:40 AM) 114/50mm Hg (02/02/22 2:28 AM) 144/78mm Hg *H* (02/02/22 12:05 AM) Respiratory Rate [16-30 br/min] 19 br/min (02/02/22 3:40 AM) 18 br/min (02/02/22 2:28 AM) 25 br/min (02/02/22 1:59 AM) Temperature [96.8-100.4 DegF] 99.9 DegF (02/02/22 2:28 AM) 100.7 DegF *H* (02/02/22 12:05 AM) Mode of Delivery (Oxygen) Room air (02/02/22 3:40 AM) Room air (02/02/22 2:28 AM) Room air (02/02/22 12:05 AM) Temperature Route Oral (02/02/22 2:28 AM) Oral (02/02/22 12:05 AM) Social History Social History Type Response Smoking Status Former smoker entered on: 02/25/16 Sex
--- OUTSIDE RECORDS SUMMARY | 2024-08-05 16:24 | XMS_ITS | Continuity of Care Document ---
Author Organization [facility] ter Address [address] [place] [address]- Care Team Providers Care Optical Glass Wet Inspector Name Role Phone Cassie Carmelita Oates DO Primary Care Lucia garza Encounter [facility] [place] Date(s): 10/29/21 - 10/29/[address] [address]- Discharge Disposition: Transferred to an intermediate care faci Attending Physician: Bart Mitchell MD Admitting Physician: Bart Mitchell MD Referring Physician: Not on Staff, Referring MD Allergies, Adverse Reactions, Alerts Substance Reaction Severity Status Contrast Dye hives Active Immunizations Given and Recorded Vaccine Date Status Refusal Reason influenza virus vaccine, inactivated 08/09/10 Give n pneumococcal 23-valent vaccine 08/09/10 Given Medications Concerta 72, mg, By Mouth, Daily, 0, 0, 09/17/08 4:45:50, Print TENA Number, [id number], Constant Indicator Start Date: 09/17/08 Status: Ordered [...] 1 Active (Confirmed) Active 1currently n Valtrex Vital Signs Most recent to oldest [Reference Range]: 1 Oxygen Saturation [94-100 %] 99 % (10/29/21 8:35 AM) Pulse Rate [55-90 bpm] 91 bpm *H* (10/29/21 8:35 AM) Mode of Delivery (Oxygen) Room air (10/29/21 8:35 AM) Social History Social History Type Response Smoking Status Former smoker entered on: 02/25/16 Sex
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
--- OUTSIDE RECORDS SUMMARY | 2024-08-05 16:24 | XMS_ITS | Continuity of Care Document ---
Author Organization [facility] Address [address] [place] [address]- Care Team Providers Care Chandelier Maker Name Role Phone Cassie Lashon FERRARA Carmelita Primary Care Lucia garza Encounter [facility] Date(s): 01/24/22 - 02/23/22 [facility] [address] [place] [id number] Allergies, Adverse Reactions, Alerts Substance Reaction Severity Status Contrast Dye hives Active Immunizations Given and Recorded Vaccine Date Status Refusal Reason influenza virus vaccine, inactivated 08/09/10 Give n pneumococcal 23-valent vaccine 08/09/10 Given Medications Concerta 72, mg, By Mouth, Daily, 0, 0, 09/17/08 4:45:50, Print TENA Number, [id number], Constant Indicator Start Date: 09/17/08 Status: Ordered [...]
--- OUTSIDE RECORDS SUMMARY | 2024-08-05 16:24 | XMS_ITS | Continuity of Care Document ---
Author Organization [facility] ter Address [address] [place] [address]- Care Team Providers Care Probation Worker Name Role Phone Anthonydevyn Carmelita Oates DO Primary Care Lucia garza Encounter [facility] [place] Date(s): 05/07/20 - 05/07/[address] [address] [facility] Discharge Disposition: A-D/C Home Attending Physician: Miranda Edmond DO Admitting Physician: Miranda Edmond DO Referring Physician: Miranda Edomnd DO Allergies, Adverse Reactions, Alerts Substance Reaction Severity Status Contrast Dye hives Active Immunizations Given and Recorded Vaccine Date Status Refusal Reason influenza virus vaccine, inactivated 08/09/10 Give n pneumococcal 23-valent vaccine 08/09/10 Given Medications Colace sodium 100 mg oral capsule 100 mg, 1, capsule, By Mouth, 2 times a day, PRN, # 20 capsule, Refills 1, Tot. Refills 1, Maintenance, for constipation, 07/20/16 18:02:15, Print Requisition Start Date: 07/20/16 Stop Date: 08/09/16 Status: Ordered Concerta 72, mg, By Mouth, Daily, 0, 0, 09/17/08 4:45:50, Print TENA Number, [id number], Constant Indicator Start Date: 09/17/08 Status: Ordered docusate sodium 100 mg oral capsule 1 capsule = 100 mg, By Mouth, 2 times a day, PRN as needed for constipation, # 60 capsule, 1 Refills, Maintenance, 04/05/15 9:00:34, Capsule Start Date: 04/05/15 Stop Date: 06/04/15 Status: Ordered ferrous sulfate 325 mg oral tablet 1 tablet = 325 mg, By Mouth, 3 times a day, # 270 tablet, 0 Refills, Maintenance, 06/12/16 22:13:27, Tablet Start Date: 06/12/16 Status: Ordered ibuprofen 600 mg oral tablet 600 mg, 1, tablet, By Mouth, 4 times a day, PRN, # 40 tablet, Refills 2, Tot. Refills 2, Maintenance, for pain, 07/20/16 18:02:23, Print Requisition Start Date: 07/20/16 Stop Date: 08/19/16 Status: Ordered Percocet-5/325 325 mg-5 mg oral tablet 2 tablet, By Mouth, Every 6 hours, PRN for pain, # 40 tablet, 0 Refills, Maintenance, 04/05/15 9:00:59, Tablet Start Date: 04/05/15 Stop Date: 04/10/15 Status: Ordered Multivitamins By Mouth, Daily, 0 Refills, Maintenance, 06/12/16 22:12:29 Start Date: 06/12/16 Status: Ordered ProAir HFA 90 mcg/inh inhalation aerosol with adapter 2 puffs, Inhalation, 4 times a day, 0 Refills, Maintenance, 04/03/15 23:48:29 Start Date: 04/03/15 Status: Ordered starch topical 51% suppository See Instructions, Rectally 2 times a day, # 14 application, 0 Refills, Maintenance, 04/05/15 9:01:30, Suppository Start Date: 04/05/15 Status: Ordered Valtrex 500 mg oral tablet 500 mg, 1, tablet, By Mouth, Every 12 hours, Refills 0, Maintenance, 07/15/16 1:22:49 Start Date: 07/15/16 Status: Ordered Problem List Condition Effective Dates Status Health Status Inform ant Asthma(Confirmed) Active Genital HSV(Confirmed) 1 Active (Confirmed) Active 1currently n Valtrex Procedures Procedure Date Related Diagnosis Body Site Status section Complete d Vital Signs Most recent to oldest [Reference Range]: 1 Height 168 cm (05/07/20 4:35 PM) Weight 123.8 kg (05/07/20 4:28 PM) Oxygen Saturation [94-100 %] 100 % (05/07/20 4:35 PM) Pulse Rate [55-90 bpm] 61 bpm (05/07/20 4:35 PM) Blood Pressure [90-138/55-84 mm Hg] 128/ 76mm Hg (05/07/20 4:35 PM) Respiratory Rate [16-30 br/min] 20 br/mi n (05/07/20 4:35 PM) Temperature [96.8-100.4 DegF] 97.8 DegF (05/07/20 4:35 PM) Mode of Delivery (Oxygen) Room air (05/07/20 4:35 PM) Blood pressure sites Arm, right (05/07/20 4:35 PM) Temperature Route Oral (05/07/20 4:35 PM) Dry Weight 123.8 kg (05/07/20 4:28 PM) Weight Obtained Via Standing scale (05/07/20 4:28 PM) Dry Weight Obtained Via Standing scale (05/07/20 4:28 PM) Social History Social History Type Response Smoking Status Former smoker entered on: 02/25/16 Sex
--- OUTSIDE RECORDS SUMMARY | 2024-08-05 16:24 | XMS_ITS | Continuity of Care Document ---
Author Organization [facility] ter Address [address] [place] [address]- Care Team Providers Care Cushion Builder Name Role Phone Carmelita Remy DO Primary Care Lucia garza Encounter [facility] [place] Date(s): 01/25/22 - 07/15/[address] [address] Attending Physician: Tyler Bey MD Referring Physician: Tyler [...] 06/16/22 12:52:00 EDT, Route to Pharmacy Electronically, [facility]/pharmacy #[id number], Partial fill upon patient request if the prescriptio... Start Date: 06/16/22 Status: Ordered Concerta 72, mg, By Mouth, Daily, 0, 0, 09/17/08 4:45:50, Print TENA Number, [id number], Constant Indicator Start Date: 09/17/08 Status: Ordered [...] 06/16/22 12:52:00 EDT, Route to Pharmacy Electronically, [facility]/pharmacy #[id number], Partial fill upon patientrequest if the prescription is for a schedule II op... Start Date: 06/16/22 Status: Ordered oxyCODONE 5 mg oral tablet 5 mg, 1, tablet, By Mouth, Every 4 hours, # 10 tablet, Refills 0, Tot. Refills 0, Acute 07/17/22 12:53:00 EDT, 06/16/22 12:53:00 EDT, Route to Pharmacy Electronically, [facility]/pharmacy #[id number], Partial fill upon patient request [...] tablet, 1 Refills, Maintenance, 06/16/22 12:52:00 EDT, [facility]/pharmacy #[id number], Partial fill upon patient request [...] on: 02/25/16 Sex Care Team Personnel Name: Andreina Remy DOla Address: [address], [place] [address]
--- OUTSIDE RECORDS SUMMARY | 2024-08-05 16:24 | XMS_ITS | Continuity of Care Document ---
Author Organization [facility] ter Address [address] [place] [address]- Care Team Providers Care Tap Puller Name Role Phone Anthonydevyn Carmelita Oates DO Primary Care Lucia garza Encounter [facility] [place] Date(s): 06/11/22 - 06/11/[address] [address] Discharge Disposition: A-D/C Home Attending Physician: Jackie Smart MD Admitting Physician: Jackie mSart MD Referring Physician: Jackie Smart MD Allergies, Adverse Reactions, Alerts Substance Reaction Severity Status Contrast Dye hives Active Immunizations Given and Recorded Vaccine Date Status Refusal Reason influenza virus vaccine, inactivated 08/09/10 Give n pneumococcal 23-valent vaccine 08/09/10 Given Medications Concerta 72, mg, By Mouth, Daily, 0, 0, 09/17/08 4:45:50, Print TENA Number, [id number], Constant Indicator Start Date: 09/17/08 Status: Ordered [...]
--- OUTSIDE RECORDS SUMMARY | 2024-08-05 16:24 | XMS_ITS | Continuity of Care Document ---
Author Organization [facility] ter Address [address] [place] [address]- Care Team Providers Care Manager Licensing Name Role Phone Cassie Carmelita Oates DO Primary Care Lucia garza Encounter [facility] [place] Date(s): 10/29/21 - 10/29/[address] [address] Discharge Disposition: A-D/C Home Attending Physician: Maryellen Irwin MD Admitting Physician: Maryellen Irwin MD Referring Physician: Maryellen Irwin MD Allergies, Adverse Reactions, Alerts Substance Reaction Severity Status Contrast Dye hives Active Immunizations Given and Recorded Vaccine Date Status Refusal Reason influenza virus vaccine, inactivated 08/09/10 Give n pneumococcal 23-valent vaccine 08/09/10 Given Medications Concerta 72, mg, By Mouth, Daily, 0, 0, 09/17/08 4:45:50, Print TENA Number, [id number], Constant Indicator Start Date: 09/17/08 Status: Ordered [...] oldest [Reference Range]: 1 Height 168 cm (10/29/21 9:18 AM) Weight 110.2 kg (10/29/21 8:58 AM) Oxygen Saturation [94-100 %] 100 % (10/29/21 8:58 AM) Pulse Rate [55-90 bpm] 83 bpm (10/29/21 8:58 AM) Blood Pressure [90-138/55-84 mm Hg] 139/ 64mm Hg *H* (10/29/21 8:58 AM) Respiratory Rate [16-30 br/min] 18 br/mi n (10/29/21 8:58 AM) Temperature [96.8-100.4 DegF] 98.7 DegF (10/29/21 8:58 AM) Mode of Delivery (Oxygen) Room air (10/29/21 8:58 AM) Blood pressure sites Arm, right 1 (10/29/21 8:58 AM) Temperature Route Oral (10/29/21 8:58 AM) Dry Weight 110.2 kg (10/29/21 8:58 AM) 1Result Comment: right upper arm measured 35.5cm Social History Social History Type Response Smoking Status Former smoker entered on: 02/25/16 Sex
--- OUTSIDE RECORDS SUMMARY | 2024-08-05 16:24 | XMS_ITS | Continuity of Care Document ---
Author Organization [facility] ter Address [address] [place] [id number]- Care Team Providers Care Time Study Technologist Name Role Phone Cassie Lashon Carmelita FERRARA Primary Care Lucia garza Encounter [facility] [place] Date(s): 06/14/22 - 06/16/[address] [address] Discharge Disposition: A-D/C Home Attending Physician: Tyler Bey MD Admitting Physician: Tyler Bey MD Referring Physician: Tyler Bey MD Allergies, Adverse Reactions, Alerts Substance Reaction Severity Status Contrast Dye hives Active Immunizations Given and Recorded Vaccine Date Status Refusal Reason influenza virus vaccine, inactivated 08/09/10 Give n pneumococcal 23-valent vaccine 08/09/10 Given Medications Acetaminophen Tablet 650 mg, Tablet, By Mouth, (1-3), may give 325mg per patient preference and re- dose with 325mg within 4 hours if needed. Patient should only receive a total of 650mg of Acetaminophen every 4 hours., 06/16/22 14:00:00 EDT Start Date: 06/16/22 Stop Date: 06/16/22 Status: Completed Colace sodium 100 mg oral capsule 100 mg, 1, capsule, By Mouth, 2 times a day, PRN, # 40 capsule, Refills 0, Tot. Refills 0, Maintenance, for constipation, 06/16/22 12:52:00 EDT, Route to Pharmacy Electronically, [facility]/pharmacy #[id number], Partial fill upon patient request if the prescriptio... Start Date: 06/16/22 Status: Ordered Concerta 72, mg, By Mouth, Daily, 0, 0, 09/17/08 4:45:50, Print TENA Number, [id number], Constant Indicator Start Date: 09/17/08 Status: Ordered [...] 06/16/22 12:52:00 EDT, Route to Pharmacy Electronically, [facility]/pharmacy #[id number], Partial fill upon patientrequest if the prescription is for a schedule II op... Start Date: 06/16/22 Status: Ordered Ibuprofen Tablet 800 mg, Tablet, By Mouth, (4-6), may give 400mg per patient preference and re- dose with 400mg within 8 hours if needed. Patient should only receive a total of 800mg of Ibuprofen every 8 hours., 06/16/22 11:00:00 EDT Start Date: 06/16/22 Stop Date: 06/16/22 Status: Completed oxyCODONE 5 mg oral tablet 5 mg, 1, tablet, By Mouth, Every 4 hours, # 10 tablet, Refills 0, Tot. Refills 0, Acute 07/17/22 12:53:00 EDT, 06/16/22 12:53:00 EDT, Route to Pharmacy Electronically, [facility]/pharmacy #[id number], Partial fill upon patient request if the prescription is for a... Start Date: 06/16/22 Stop Date: 07/17/22 Status: Ordered OxyCODONE IR Tablet 5 mg, Tablet, By Mouth, Every 3 hours, PRN for Pain , Severe, (7-10), Routine, 06/15/22 5:06:00 EDT Start Date: 06/15/22 Stop Date: 06/17/22 Status: Discontinued Multivitamins By Mouth, Daily, 0 Refills, Maintenance, [...] tablet, 1 Refills, Maintenance, 06/16/22 12:52:00 EDT, [facility]/pharmacy #[id number], Partial fill upon patient request if the [...] Active Severe obesity(Confirmed) Active 1currently n Valtrex Procedures Procedure Date Related Diagnosis Body Site Status delivery only; 06/14/22 C ompleted Vital Signs Most recent to oldest [Reference Range]: 1 2 3 Height 168 cm (06/16/22 8:49 AM) 168 cm (06/15/22 3:39 PM) 168 cm (06/15/22 11:38 AM) Weight 133 kg (06/14/22 2:39 AM) 133 kg (06/14/22 12:35 AM) 133.6 kg (06/14/22 12:30 AM) Oxygen Saturation [94-100 %] 99 % (06/16/22 8:49 AM) 100 % (06/15/22 7:52 PM) 100 % (06/15/22 3:39 PM) Pulse Rate [55-90 bpm] 98 bpm *H* (06/16/22 8:49 AM) 78 bpm (06/15/22 7:52 PM) 83 bpm (06/15/22 3:39 PM) Body Mass Index [18.5-24.99] 47.12 *>HHI* (06/14/22 2:39 AM) 47.12 *>HHI* (06/14/22 12:35 AM) Blood Pressure [90-138/55-84 mm Hg] 112/53mm Hg (06/16/22 8:49 AM) 100/56mm Hg (06/15/22 7:52 PM) 130/65mm Hg (06/15/22 3:39 PM) Respiratory Rate [16-30 br/min] 20 br/min (06/16/22 1:54 PM) 20 br/min (06/16/22 1:54 PM) 20 br/min (06/16/22 1:54 PM) Temperature [96.8-100.4 DegF] 97.8 DegF (06/16/22 8:49 AM) 98.2 DegF (06/15/22 7:52 PM) 98.4 DegF (06/15/22 3:39 PM) Mode of Delivery (Oxygen) Room air (06/15/22 7:52 PM) Room air (06/15/22 3:39 PM) Room air (06/15/22 8:00 AM) Blood pressure sites Arm, left (06/15/22 7:52 PM) Arm, right (06/15/22 3:39 PM) Arm, right (06/15/22 11:38 AM) Temperature Route Oral (06/16/22 8:49 AM) Oral (06/15/22 7:52 PM) Oral (06/15/22 3:39 PM) Dry Weight 133 kg (06/14/22 2:39 AM) 133 kg (06/14/22 12:35 AM) 133.6 kg (06/14/22 12:30 AM) Weight Obtained Via Patient/family stated (06/14/22 2:39 AM) Standing scale (06/14/22 12:30 AM) Dry Weight Obtained Via Patient/family stated (06/14/22 2:39 AM) Standing scale (06/14/22 12:30 AM) Social History Social History Type Response Smoking Status Former smoker entered on: 02/25/16 Sex
[2024-08-05 17:24] VITALS: BP 101/65; PULSE 60; RESP 16; TEMP 36.7; O2SAT 99
[2024-08-05 17:31] LABS: D Dimer High Sensitivity < 150 NG/ML
[2024-08-05 17:31] LABS: Troponin-I High Sensitivity < 2.7 ng/L (<3.5-17.0)
[2024-08-05 17:34] LABS: B Type Natriuretic Peptide 11 pg/mL (<100)
[2024-08-05 18:10] VITALS: BP 101/65; PULSE 60; RESP 16; TEMP 36.7; O2SAT 99
== END 2024-08-05 18:10 | disposition home or self-care (01) ==
PROVIDERS: Physician Assistant; Registered Nurse Emergency; Emergency Provider Internal Medicine; PCP Physician Assistant
DX: R07.89 Other chest pain (principal); R07.9 Chest pain, unspecified; J45.909 Unspecified asthma, uncomplicated; Z79.899 Other long term (current) drug therapy
CPT/HCPCS: 36415; 71046; 80053; 83880; 84484; 84702; 85025; 85379; 85610; 93005; 99283

== ENCOUNTER 2024-08-05 13:59 | Outpatient (REF) | payer OTHER, SELFPAY | END 2024-08-05 14:00 | disposition home or self-care (01) | LOC: HO.HOSX 13:59 | PROVIDERS: Visit Provider Orthopaedic Surgery | DX: M25.561 Pain in right knee (principal) | CPT/HCPCS: 73562; 99202 ==

== ENCOUNTER 2025-09-21 13:27 | Observation (INO) | payer OTHER, SELFPAY ==
--- OUTSIDE RECORDS SUMMARY | 2025-09-20 22:53 | XMS_ITS | Continuity of Care Document ---
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 Role Phone Cassie Carmelita Oates DO Primary Care Sukumarjulio garza Encounter [facility] [place] Date(s): 09/20/25 - 09/20/[address] [address]- Encounter Diagnosis Fibroid uterus(Final) - 09/20/25 Discharge Disposition: A-D/C Home Attending Physician: Rodriguez Recio MD Admitting Physician: Rodriguez Recio MD Referring Physician: Not on Staff, Referring MD Encounter Type: Disch ES Allergies, Adverse Reactions, Alerts Substance Criticality Severity Reaction Reaction Severity Status Contrast Dye hives Active Immunizations Given and Recorded Vaccine Date Status Refusal Reason influenza virus vaccine, inactivated 08/09/10 Give n pneumococcal 23-valent vaccine 08/09/10 Given Medications Colace sodium 100 mg oral capsule 100 mg, 1, capsule, By Mouth, 2 times a day, PRN, # 40 capsule, Refills 0, Tot. Refills 0, Maintenance, for constipation, 06/16/22 12:52:00 PM EDT, Route to Pharmacy Electronically, [facility]/pharmacy #[id number], Partial fill upon patient request if the prescription is for a schedule II opioid drug., 168, cm, 06/16/22 11:02:00 EDT, Height, 133, kg, 06/14/22 2:39:00 EDT, Dry Weight Start Date: 06/16/22 Status: Ordered Medication Dispense Status: Completed Quantity: 40.0 Unit: capsule Total Allowed Fills: 1 Fills Dispensed: 0 Concerta = 72 mg, By Mouth, Daily, 0 Refills, 09/17/08 4:45:50 AM EST Start Date: 09/17/08 Status: Ordered Medication Dispense Status: Completed Total Allowed Fills: 1 Fills Dispensed: 0 ferrous sulfate 325 mg oral tablet 1 tablet = 325 mg, By Mouth, 3 times a day, # 270 tablet, 0 Refills, Maintenance, 06/12/16 10:13:27 PM EDT, Tablet Start Date: 06/12/16 Status: Ordered Medication Dispense Status: Completed Quantity: 270.0 Unit: tablet Total Allowed Fills: 1 Fills Dispensed: 0 Flovent 110 mcg Inhaler HFA Refills 0, Maintenance, 05/10/20 12:12:00 PM EDT Start Date: 05/10/20 Status: Ordered Medication Dispense Status: Completed Total Allowed Fills: 1 Fills Dispensed: 0 ibuprofen 600 mg oral tablet 600 mg, 1, tablet, By Mouth, Every 6 hours, # 40 tablet, Refills 1, Tot. Refills 1, Maintenance, 06/16/22 12:52:00 PM EDT, Route to Pharmacy Electronically, [facility]/pharmacy #[id number], Partial fill upon patient request if the prescription is for a schedule II opioid drug., 168, cm, 06/16/22 11:02:00 EDT, Height, 133, kg, 06/14/22 2:39:00 EDT, Dry Weight Start Date: 06/16/22 Status: Ordered Medication Dispense Status: Completed Quantity: 40.0 Unit: tablet Total Allowed Fills: 2 Fills Dispensed: 0 MorPHINE Inj 6 mg, Injection, IV Push Slowly, Every 5 minutes for 3 doses/times, PRN for Pain , Moderate, and SBP greater than 100, Routine, 09/20/25 5:40:00 PM EST Start Date: 09/20/25 Status: Ordered Medication Dispense Status: Completed Total Allowed Fills: 1 Fills Dispensed: 0 Multivitamins By Mouth, Daily, 0 Refills, Maintenance, 06/12/16 10:12:29 PM EDT Start Date: 06/12/16 Status: Ordered Medication Dispense Status: Completed Total Allowed Fills: 1 Fills Dispensed: 0 ProAir HFA 90 mcg/inh inhalation aerosol with adapter 2 puffs, Inhalation, 4 times a day, 0 Refills, Maintenance, 04/03/15 11:48:29 PM EDT Start Date: 04/03/15 Status: Ordered Medication Dispense Status: Completed Total Allowed Fills: 1 Fills Dispensed: 0 Tylenol Extra Strength 500 mg oral tablet 1 tablet = 500 mg, By Mouth, Every 6 hours, not to exceed 4000 mg/day, # 50 tablet, 1 Refills, Maintenance, 06/16/22 12:52:00 PM EDT, [facility]/pharmacy #[id number], Partial fill upon patient request if the prescription is for a schedule II opioid drug., 168, cm, 06/16/22 11:02:00 EDT, Height, 133, kg, 222:39:00 EDT, Dry Weight Start Date: 06/16/22 Status: Ordered Medication Dispense Status: Completed Quantity: 50.0 Unit: tablet Total Allowed Fills: 2 Fills Dispensed: 0 Valtrex 500 mg oral tablet 500 mg, 1, tablet, By Mouth, Every 12 hours, Refills 0, Maintenance, 07/15/16 1:22:49 AM EDT Start Date: 07/15/16 Status: Ordered Medication Dispense Status: Completed Total Allowed Fills: 1 Fills Dispensed: 0 Problem List Condition Confirmation Course Effective Dates Status Health St atus Informant Asthma Confirmed Active Genital HSV 1 Confirmed Active Severe obesity Confirmed Active 1currently n Valtrex Results Radiology Reports * Exam Date Time Procedure Performing Provider Status 09/20/25 9:08 PM US Pelvic Doppler Comp A [facility] (Verified) Notes: (US Pelvic Doppler Comp) Reason For Exam: Pelvic Pain;Other: RESULT: US Pelvic Doppler Comp US Pelvic Transabdominal, US Pelvic Transvaginal, US Pelvic Doppler Comp Hx of Present Illness: sent in for r o appy by her OB, has some right lower quad pain, sweating, vomiting and dizziness, symptoms started 3 days ago; Reason: Other:; Pelvic Pain; Clinical Question(s): Torsion; Order Comment: US Pelvic Non-Ob Comp Prep - COMPARISON: None TECHNIQUE: Transabdominal and transvaginal pelvic ultrasound with grayscale, color Doppler, and spectral Doppler analysis. FINDINGS: Overall limited by patient body habitus and acoustic window. Furthermore limited by fibroid artifact. UTERUS: Size: 11.5 x 7.8 x 9.4 cm, volume 437.1 cc. Endometrial thickness: Partially visualized. Visualized portion measures 0.7 cm. Morphology: Fibroid uterus. The largest discrete fibroid measures 5.6 x 5.5 x 5.2 cm. RIGHT OVARY: Limited visualization as it is identified on the transabdominal scan. Size: 2.5 x 2.8 x 2.9 cm, volume 10.9 cc. Morphology: Normal echotexture. No pathologic cysts or mass. Normal color Doppler appearance. Normal arterial and venous waveforms. LEFT OVARY: Not visualized on the transabdominal or transvaginal scan. ADNEXA: Normal. No adnexal masses or fluid collections. IMPRESSION: Very limited study due to body habitus, acoustic window and artifact from fibroid. Left ovary not visualized. No evidence of right ovarian torsion. Fibroid uterus. WSN: [id number] Ordering Physician: Nina Doe Dictated By: Reynold Jimenez MD Dictated Date/Time: 09/20/25 9:28 pm Reviewed By: Reynold Jimenez MD Signed By: Reynold Jimenez MD Signed Date/Time: 09/20/25 9:28 pm Transcribed By: RAF Transcribed Date/Time: 09/20/25 9:13 pm * Exam Date Time Procedure Performing Provider Status 09/20/25 9:08 PM US Pelvic Transvaginal A ut (Verified) Notes: (US Pelvic Transvaginal) Reason For Exam: Pelvic Pain;Other: RESULT: US Pelvic Transvaginal US Pelvic Transabdominal, US Pelvic Transvaginal, US Pelvic Doppler Comp Hx of Present Illness: sent in for r o appy by her OB, has some right lower quad pain, sweating, vomiting and dizziness, symptoms started 3 days ago; Reason: Other:; Pelvic Pain; Clinical Question(s): Torsion; Order Comment: US Pelvic Non-Ob Comp Prep - COMPARISON: None TECHNIQUE: Transabdominal and transvaginal pelvic ultrasound with grayscale, color Doppler, and spectral Doppler analysis. FINDINGS: Overall limited by patient body habitus and acoustic window. Furthermore limited by fibroid artifact. UTERUS: Size: 11.5 x 7.8 x 9.4 cm, volume 437.1 cc. Endometrial thickness: Partially visualized. Visualized portion measures 0.7 cm. Morphology: Fibroid uterus. The largest discrete fibroid measures 5.6 x 5.5 x 5.2 cm. RIGHT OVARY: Limited visualization as it is identified on the transabdominal scan. Size: 2.5 x 2.8 x 2.9 cm, volume 10.9 cc. Morphology: Normal echotexture. No pathologic cysts or mass. Normal color Doppler appearance. Normal arterial and venous waveforms. LEFT OVARY: Not visualized on the transabdominal or transvaginal scan. ADNEXA: Normal. No adnexal masses or fluid collections. IMPRESSION: Very limited study due to body habitus, acoustic window and artifact from fibroid. Left ovary not visualized. No evidence of right ovarian torsion. Fibroid uterus. WSN: [id number] Ordering Physician: Nina Doe Dictated By: Reynold Jimenez MD Dictated Date/Time: 09/20/25 9:28 pm Reviewed By: Reynold Jimenez MD Signed By: Reynold Jimenez MD Signed Date/Time: 09/20/25 9:28 pm Transcribed By: RAF Transcribed Date/Time: 09/20/25 9:13 pm * Exam Date Time Procedure Performing Provider Status 09/20/25 9:08 PM US Pelvic Transabdominal Auth (Verified) Notes: (US Pelvic Transabdominal) Reason For Exam: Pelvic Pain;Other: RESULT: US Pelvic Transabdominal US Pelvic Transabdominal, US Pelvic Transvaginal, US Pelvic Doppler Comp Hx of Present Illness: sent in for r o appy by her OB, has some right lower quad pain, sweating, vomiting and dizziness, symptoms started 3 days ago; Reason: Other:; Pelvic Pain; Clinical Question(s): Torsion; Order Comment: US Pelvic Non-Ob Comp Prep - COMPARISON: None TECHNIQUE: Transabdominal and transvaginal pelvic ultrasound with grayscale, color Doppler, and spectral Doppler analysis. FINDINGS: Overall limited by patient body habitus and acoustic window. Furthermore limited by fibroid artifact. UTERUS: Size: 11.5 x 7.8 x 9.4 cm, volume 437.1 cc. Endometrial thickness: Partially visualized. Visualized portion measures 0.7 cm. Morphology: Fibroid uterus. The largest discrete fibroid measures 5.6 x 5.5 x 5.2 cm. RIGHT OVARY: Limited visualization as it is identified on the transabdominal scan. Size: 2.5 x 2.8 x 2.9 cm, volume 10.9 cc. Morphology: Normal echotexture. No pathologic cysts or mass. Normal color Doppler appearance. Normal arterial and venous waveforms. LEFT OVARY: Not visualized on the transabdominal or transvaginal scan. ADNEXA: Normal. No adnexal masses or fluid collections. IMPRESSION: Very limited study due to body habitus, acoustic window and artifact from fibroid. Left ovary not visualized. No evidence of right ovarian torsion. Fibroid uterus. WSN: [id number] Ordering Physician: Nina Doe Dictated By: Reynold Jimenez MD Dictated Date/Time: 09/20/25 9:28 pm Reviewed By: Reynold Jimenez MD Signed By: Reynold Jimenez MD Signed Date/Time: 09/20/25 9:28 pm Transcribed By: RAF Transcribed Date/Time: 09/20/25 9:13 pm * Exam Date Time Procedure Performing Provider Status 09/20/25 7:[address] Abd/Pelvis W/ IV Contrast Only Auth (Verified) Notes: (CT Abd/Pelvis W/ IV Contrast Only) Reason For Exam: RLQ abdominal pain;Other: RESULT: CT Abd/Pelvis W/ IV Contrast Only CT Abd/Pelvis W/ IV Contrast Only Hx of Present Illness: sent in for r o appy by her OB, has some right lower quad pain, sweating, vomiting and dizziness, symptoms started 3 days ago; Reason: Other:; RLQ abdominal pain; Clinical Question(s): Appendicitis; Order Comment: Patient unable to tolerate PO contrast. 50mg IV benadryl given TECHNIQUE: Spiral CT through the abdomen and pelvis with IV contrast formatted in 3 planes. 100 cc of Isovue 300 100cc vials was administered intravenously. This study was performed without oral contrast. Weight-based protocol using automatic tube modulation was used to optimize exposure parameters. COMPARISON: 04/03/2015 FINDINGS: Pack Puller View Findings, Lines and Tubes: None. Visualized Chest: Lung bases are clear. No pleural effusion. The heart is normal in size. No pericardial effusion. Diaphragm: Normal. Liver: Normal morphology and attenuation. No suspicious lesion. Gallbladder: Large gallstone in the gallbladder. No inflammatory changes. Bile ducts: No biliary ductal dilation. Spleen: Normal. Pancreas: Normal. Adrenal glands: Normal. Kidneys and ureters: No hydronephrosis, stones, or suspicious masses. Bladder: Normal. Reproductive organs: Large low-density measuring 5.6 x 5.2 cm area noted within the uterus. Possible fibroid. Recommend pelvic ultrasound follow-up Stomach, small bowel, and large bowel: Normal. Appendix: Normal. Peritoneum and retroperitoneum: No ascites or pneumoperitoneum. No omental or mesenteric lesions. Lymph nodes: No enlarged lymph nodes. Blood vessels: Normal. No aneurysm. No evidence of venous thrombosis. Abdominal and pelvic wall: Unremarkable. Bones: No acute abnormality. IMPRESSION: 5.6 cm maximal dimension hypodensity within the right uterine fundus. Possible fibroid. Recommend follow-up pelvic ultrasound. No acute abnormality appreciated. Large stone within the gallbladder. No inflammatory changes. WSN: [id number] Ordering Physician: Rodriguez Recio Dictated By: Emanuel Terry MD Dictated Date/Time: 09/20/25 7:13 pm Reviewed By: Emanuel Terry MD Signed By: Emanuel Terry MD Signed Date/Time: 09/20/25 7:13 pm Transcribed By: RAF Transcribed Date/Time: 09/20/25 7:09 pm Vital Signs Most recent to oldest [Reference Range]: 1 2 3 Height 168 cm (09/20/25 7:48 PM) 168 cm (09/20/25 2:53 PM) Weight 118.5 kg (09/20/25 7:48 PM) 118.5 kg (09/20/25 2:53 PM) Oxygen Saturation [94-100 %] 100 % (09/20/25 9:22 PM) 96 % (09/20/25 7:48 PM) 100 % (09/20/25 2:53 PM) Pulse Rate [55-90 bpm] 66 bpm (09/20/25 9:22 PM) 69 bpm (09/20/25 7:48 PM) 95 bpm *H* (09/20/25 2:53 PM) Body Mass Index [18.5-24.99 kg/m2] 41.99 kg/m2 *H* (09/20/25 7:48 PM) 41.99 kg/m2 *H* (09/20/25 2:53 PM) Blood Pressure [90-138/55-84 mm Hg] 115/61mm Hg (09/20/25 9:22 PM) 107/64mm Hg (09/20/25 7:48 PM) 139/107mm Hg *H* (09/20/25 2:53 PM) Respiratory Rate [16-30 br/min] 18 br/min (09/20/25 9:22 PM) 18 br/min (09/20/25 7:48 PM) 18 br/min (09/20/25 7:47 PM) Temperature [96.8-100.4 DegF] 98.5 DegF (09/20/25 9:22 PM) 98.8 DegF (09/20/25 7:48 PM) 98.3 DegF (09/20/25 2:53 PM) Mode of Delivery (Oxygen) Room air (09/20/25 9:22 PM) Room air (09/20/25 7:48 PM) Room air (09/20/25 2:53 PM) Blood pressure sites Arm, left (09/20/25 9:22 PM) Arm, left (09/20/25 7:48 PM) Arm, right (09/20/25 2:53 PM) Temperature Route Oral (09/20/25 9:22 PM) Oral (09/20/25 7:48 PM) Oral (09/20/25 2:53 PM) Weight Obtained Via Patient/family state d (09/20/25 2:53 PM) Social History Social History Type Response Smoking Status Former smoker entered on: 02/25/16 Sex Sex Representation Female (finding) Status Not Note * Nina Metz: PERFORM Event Display: Patient Education Leaflets Authored Date: [id number] Uterine Fibroids ?? [id number] Uterine Fibroids Fibroids??are??lumps (growths) of muscle tissue.??They can form in the wall of the uterus (womb). Fibroids are very common. They are almost always not cancer (benign).??The cause of fibroids is not known. But they may run in families. Also, changes in female hormones may cause them to grow over time. After menopause, fibroids may stop growing or shrink. Fibroids may or may not cause symptoms. This depends on many factors, such as their size, the number, and where the fibroids are. If symptoms do occur, they can include: ??? Heavy bleeding. In severe cases, this may lead to low red blood count (anemia). ??? Painful periods. ??? Feeling of fullness, swelling, pressure, or pain in the lower belly (abdomen) or pelvic region. ??? Low back pain. ??? Frequent urination. ??? Constipation. ??? Pain during sex. ??? Problemsgetting or problems during . If fibroids are suspected, your doctor will do an assessment to help understand the size of the problem. This can include a health history, exam, and tests. Based on the results, treatment can be planned, if needed. Until more details are known about your problem, you may be given guidelines similar to the home care instructions below. Home care ??? To help control pain, [id number] pain medicine may be advised.??Take these onlyas directed by your doctor. ??? If you have heavy or painful periods, keep a log of your menstrual cycle. Share the log with your doctor. The information may help them decide if your symptoms are from fibroids or another cause. ??? Make some lifestyle changes. This may include losing excess weight,being more active, or eating less red meat. These changes may help lower the risk of fibroids in some people. They may also help improve overall health. ?? Follow-up care Follow up with your doctor as advised.??If testing was done, you???ll be told the results when theyare ready. Call your doctor if you have not heard anything and it is several days after the testingwas done. Treatment options for fibroids may include medicines or procedures to help shrink the fibroids or keep them from growing.??In severe cases, surgery may be needed to remove fibroids or to remove the uterus. If you have fibroids but no symptoms, you may not need treatment at all. But your doctor may advise regular follow-up to check fibroid size and growth. ?? When to contact your doctor Contact your doctor right away if: ??? You have heavy bleeding or painful periods that continue or??don???t get better with treatment. ??? You show signs of anemia such as extreme fatigue, pale skin,shortness of breath with little exertion, or rapid heartbeat. ??? You have weakness, dizziness, or fainting. ??? You have severe pain in the pelvic or belly region. ??? Your belly is swollen or enlarged. ?? Last Reviewed Date: 2025 00:00:00 ?? [employer]. All rights reserved. This information is not intended as a substitute for professional medical care. Always follow your healthcare professional's instructions. ?? Patient Care team information Care Team Personnel Name: Carmelita Remy DO Position: [facility] Physician - Primary Care Member Role: PCP Address: [address] [place] [address] Telecom: Care Team Related Persons Name: RIKKI COFFEY Name: KAREN COFFEY Name: ALIRIO MOJICA Name: KAHLIL BURNETTE Name: NADINE ESPINOSA Insurance Providers Guarantor name: [employer]ESSE Health Plan Information #: 1 Payer: [employer] Payer Identifier: JESSE Member Number: [id number] Group Number: [id number] Subscriber Identifier: [id number] Relationship to Subscriber: self Coverage Type: JESSE Coverage Verification Date: NA Telecom: NA Address:
--- NOTE | ~2025-09-21 | US_ITS ---
CLINICAL HISTORY: RLQ pain US pelvis transabdominal and transvaginal Comparison: CT/SR - CT ABDOMEN PELVIS WITHOUT IV CONTRAST - 01/24/23 21:05 EDT Findings: Transabdominal scanning performed for overall anatomy. Transvaginal scanning performed for additional detail. Anteverted uterus is 11.6 cm length.Uterine fibroids measuring up to 5.9 cm. Endometrium 14 mm thickness. Ovaries are not visualized. Trace free fluid. IMPRESSION: 1. Fibroid uterus. 2. Ovaries are not visualized. Correlate with history of oophorectomy. 3. Trace free fluid. This document has been electronically signed by: Angel Arriaga MD on 09/21/2025 23:11:24
--- NOTE | ~2025-09-21 | US_ITS ---
EXAMINATION: US ABDOMEN LIMITED CLINICAL INFORMATION: Right upper quadrant pain. COMPARISON: CT March 26, 2023 TECHNIQUE: Real-time imaging of the right upper quadrant abdominal viscera. FINDINGS: LIVER: Limited visualization of the liver demonstrates no abnormality. GALLBLADDER: There is a 2.3 cm shadowing stone within the gallbladder. Superficial portion of the gallbladder wall thickness is upper limits of normal measuring 3 mm. Remaining portions of gallbladder wall. There is no report tenderness by the health information technologist. COMMON BILE DUCT: Normal in caliber measuring 0.3 cm in diameter. FREE FLUID: None. US/US abdomen limited IMPRESSION: Cholelithiasis. Electronically signed by: Stew Verma MD 09/21/2025 04:30 PM EST
--- NOTE | ~2025-09-21 | CT_ITS ---
CLINICAL HISTORY: R abdo pain upper and lower quadrant CT abdomen and pelvis without contrast Comparison: US/SR - US ABDOMEN LIMITED - 09/21/25 16:[address]/SR - CT ABDOMEN PELVIS WITHOUT IV CONTRAST - 01/24/23 21:05 EDT Findings: Limited evaluation without intravenous contrast. The lung bases are clear. 2.5 cm gallstone in the gallbladder. No biliary ductal dilatation. Unenhanced liver, spleen and pancreas are within normal limits. Adrenal glands are normal. No renal or ureteral stones and no hydronephrosis or hydroureter. No perinephric stranding. No bowel obstruction, pneumoperitoneum, or pneumatosis. No free fluid. Normal appendix. Uterus appears prominent. Urinary bladder is empty. No aneurysm of the abdominal aorta. Small fat containing umbilical hernia. No acute fracture. IMPRESSION: 1. No acute findings. 2. Cholelithiasis. This document has been electronically signed by: Cyndi Melvin MD on 09/21/2025 23:38:22
--- OUTSIDE RECORDS SUMMARY | 2025-09-21 12:30 | XMS_ITS | Encounter Summary ---
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 [employer] Name Role Phone Mikaela Fischer MD Primary Care Provider [phone] Reason for Visit * Reason Comments [facility] Encounter Details Date Type Department Care Team (Late st Contact Info) Description 09/21/2025 12:30 PM EST Office Visit Adult Medicine [address] [phone] Mikaela Fischer MD [address] [place] [address] Acute right lower quadrant pain (Primary Dx); Calculus of gallbladder without cholecystitis without obstruction; Uterine leiomyoma, unspecified location Social History Tobacco Use Types Packs/Day Years Used Date Smoking Tobacco: Former Cigarettes 0.5 5.5 0 04/14/2008 - 10/14/2013 Smokeless Tobacco: Never Tobacco Cessation:Counseling Given: Not Answered Alcohol Use Standard Drinks/Week Comments Yes 0 (1 standard drink = 0.6 oz pur e alcohol) Housing Instability Answer Date Recorde d Are you worried that in the next 2 months you may not have stable housing? Patient declined 11/30/2024 Food Access & Nutrition Answer Date Rec orded Do you have access to a vari ety of food including fruits and vegetables? Patient declined 11/30/2024 Health Literacy Answer Date Recorded How often do you need to hav e someone help you when you read instructions, pamphlets, or other written material from your doctor or pharmacy? Patient declined 11/30/2024 Caregiver: How often do you need to have someone help you when you read instructions, pamphlets, or other written material from your doctor or pharmacy? Not on file 025 Financial Risk Answer Date Recorded How hard is it for you to pa y for the very basics like food, housing, medical care, and air conditioning / heating? Somewhat hard 11/30/2024 Transportation Answer Date Recorded Has the lack of transportati on kept you from meetings, work, or from getting things needed for daily living? Patient declined 11/30/2024 Has the lack of transportati on kept you from medical appointments or from getting medications? Patient declined 11/30/2024 Social Isolation Answer Date Recorded How often do you feel lonely or isolated from those around you? Patient declined 11/30/2024 Food Risk Answer Date Recorded Within the past 12 months we worried whether our food would run out before we got money to buy more. Never true 11/30/2024 Within the past 12 months th e food we bought just didn't last and we didn't have money to get more. Never true 11/30/2024 Dependent Care Answer Date Recorded Do you need help finding or paying for care for your loved ones. For example, child care team lead or elderly care for an older adult? Patient declined 11/30/2024 Education Answer Date Recorded Do you think completing more education or training, like finishing a GED, going to college, or learning a trade, would be helpful for you? Patient declined 11/30/2024 Employment and Income Answer Date Recor ded During the last four weeks, have you been actively looking for work? Patient declined 11/30/2024 Living Situation Answer Date Recorded What is your living situation? Unrecognized valu e 11/30/2024 Comments No Sex and Gender Information Value Date Recorded Sex Assigned at Not on file Legal Sex Female 5:08 AM EST Gender Identity Not on file Sexual Orientation Not on file documented as of this encounter Last Filed Vital Signs Vital Sign Reading Time Taken Comments Blood Pressure 110/82 09/21/2025 12:33 PM EST Pulse 108 09/21/2025 12:33 PM EST Temperature 36.6 C (97.9 F) 09/21/2025 12:33 PM EST Respiratory Rate 18 09/21/2025 12:33 PM EST Oxygen Saturation 98% 09/21/2025 12:33 PM EST Inhaled Oxygen Concentration - - Weight 119 kg (263 lb) 09/21/2025 12:33 PM EST Height 167.6 cm (5' 6 ) 09/21/2025 12:33 PM EST Body Mass Index 42.45 09/21/2025 12:33 PM EST documented in this encounter Progress Notes * Mikaela Fischer MD - 09/21/2025 12:30 PM EST Images from the original note were not included. CHIEF COMPLAINT: Follow-up ([facility] [place] IDENTIFIER: Keira Dunaway is a 35 y.o. old female. HPI: Patient is a 35-year-old female who is here for ER follow-up, patient was evaluated at [facility] ER on 09/20/2025, patient with history of ovarian cyst presented with 3 days of right lower quadrant abdominal pain radiating into her genitals associated with diarrhea, nausea with vomiting. 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 Vitals in the ER were temp 98.3, heart rate 95, blood pressure 139/107, right lower quadrant tenderness on exam. Patient underwent urinalysis which was negative for nitrites, WBC 16.6, hemoglobin 15.7, platelets 213, sodium 137, potassium 4.9, creatinine 0.77, lipase 31, AST/ALT 13/9, bilirubin 0.7, lactate 1.4. Patient underwent CT abdomen pelvis with IV contrast which showed large gallstone in the gallbladder without any inflammatory change. 5.6 cm hypodensity within the right uterine fundus possible fibroid and pelvic ultrasound was recommended. Negative for acute appendicitis. Patient underwent pelvic ultrasound where left ovary was not visualized, no evidence of right ovarian torsion. Patient reports that symptoms have been ongoing , abdominal pain associated with nausea and vomiting, patient reports progressive worsening, and severe pain at visit patient writhing in painand in tears, unable to complete a abdominal examination because of intensity of pain. Patient reports previous history of ectopic involving left ovary as a result left ovary was removed, currently reports has not been sexually active as her partner is currently deployed. ROS: Review of systems: Pertinent items are noted in HPI PAST MEDICAL HISTORY: Patient Active Problem List Diagnosis Date Noted Anxiety 10/24/2020 Current moderate episode of major depressive disorder ([facility] V24, [facility] V28) 10/24/2020 HSV (herpes simplex virus) anogenital infection 01/04/2017 Asthma 10/14/2015 Migraine with aura and without status migrainosus, not intractable 10/14/2015 SOCIAL HISTORY: Social History Tobacco Use Smoking status: Former Current packs/day: 0.00 Average packs/day: 0.5 packs/day for 5.5 years (2.8 ttl pk-yrs) Types: Cigarettes Start date: 04/14/2008 Quit date: 10/14/2013 Years since quittin.9 Smokeless tobacco: Never Substance Use Topics Alcohol use: Yes FAMILY HISTORY: Family Status Relation Name Status Mother Alive Father Sister Alive Brother Alive Brother Alive Brother Alive MGM Alive MGF Daughter : 07/18/2016 Alive Son : 06/14/2022 Alive Neg Hx (Not Specified) PGM Alive PGF No partnership data on file Family History[1] ACTIVE MEDICATIONS: Medications Taking[2] ALLERGIES: Iodinated contrast media PHYSICAL EXAM: Blood pressure 110/82, pulse 108, temperature 36.6 ??C (97.9 ??F), temperature source Oral, resp. rate 18, height 1.676 m (66 ), weight 119 kg (263 lb), last menstrual period 08/28/2025, SpO2 98%. Body mass index is 42.45 kg/m??. Plan is deferred until next visit APPEARANCE: Alert and oriented in excruciating pain EYES: PERRLA, conjunctiva and sclera normal HEART: RRR with normal S1 and S2, no murmurs, no gallops, no JVD appreciated LUNG: clear to auscultation bilaterally ABDOMEN: Severe tenderness to palpation right lower quadrant/pelvic region EXTREMITIES: Extremities warm and well perfused without clubbing, cyanosis, or edema LABS: IMPRESSION: 1. Acute right lower quadrant pain 2. Calculus of gallbladder without cholecystitis without obstruction 3. Uterine leiomyoma, unspecified location ASSESSMENT/PLAN: Keira was seen today for follow-up. Diagnoses and all orders for this visit: Acute right lower quadrant pain (Primary) Calculus of gallbladder without cholecystitis without obstruction Uterine leiomyoma, unspecified location Plan Patient is a 35-year-old female who is here for ER follow-up, patient was evaluated at [facility] ER on 09/20/2025, patient with history of ovarian cyst presented with 3 days of right lower quadrant abdominal pain radiating into her genitals associated with diarrhea, nausea with vomiting. 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 Vitals in the ER were temp 98.3, heart rate 95, blood pressure 139/107, right lower quadrant tenderness on exam. Patient underwent urinalysis which was negative for nitrites, WBC 16.6, hemoglobin 15.7, platelets 213, sodium 137, potassium 4.9, creatinine 0.77, lipase 31, AST/ALT 13/9, bilirubin 0.7, lactate 1.4. Patient underwent CT abdomen pelvis with IV contrast which showed large gallstone in the gallbladder without any inflammatory change. 5.6 cm hypodensity within the right uterine fundus possible fibroid and pelvic ultrasound was recommended. Negative for acute appendicitis. Patient underwent pelvic ultrasound where left ovary was not visualized, no evidence of right ovarian torsion. Patient reports that symptoms have been ongoing , abdominal pain associated with nausea and vomiting, patient reports progressive worsening, and severe pain at visit patient writhing in painand in tears, unable to complete a abdominal examination because of intensity of pain. Patient reports previous history of ectopic involving left ovary as a result left ovary was removed, currently reports has not been sexually active as her partner is currently deployed. Patient advised to seek urgent evaluation at the ER given excruciating pain as she will require IV pain control. Patient verbalized understanding, EMS was called, patient prefers transfer to [facility], heads up call will be placed No follow-ups on file. No orders of the defined types were placed in this encounter. No results found for this or any previous visit (from the past 4 weeks). Mikaela Fischer MD on 09/21/2025 at 3:52 PM EST [1] Family History Problem Relation Name Age of Onset Asthma Mother Hypertension Mother Throat cancer Father with metasis, + smoker No Known Problems Sister Asthma Brother No Known Problems Brother No Known Problems Brother Alzheimer's disease Maternal Grandmother Seizures Maternal Grandmother Hypertension Maternal Grandmother Alzheimer's disease Maternal Grandfather No Known Problems Daughter : 07/18/2016 No Known Problems Son : 06/14/2022 Colon cancer Neg Hx Breast cancer Neg Hx Ovarian cancer Neg Hx Heart attack Neg Hx Stroke Neg Hx [2] Outpatient Medications Marked as Taking for the 09/21/25 encounter (Office Visit) with Mikaela Fischer MD Medication Sig Dispense Refill acetaminophen (TYLENOL) 500 mg tablet Take 1 tablet (500 mg total) by mouth every 6 (six) hours if needed for headaches. Patient By OTC albuterol HFA (Ventolin HFA) 90 mcg/actuation inhaler Inhale 2 puffs by mouth every 4 (four) hours if needed for wheezing. 6.7 g 0 ammonium lactate (AmLactin) 12 % lotion Apply topically if needed for dry skin. 400 g 2 budesonide-formoteroL (SYMBICORT) 160-4.5 mcg/actuation inhaler Inhale 2 puffs by mouth 2 (two) times a day. 1 each 5 hydrOXYzine HCL (ATARAX) 25 mg tablet TAKE 1/2 TO 1 TABLET BY MOUTH TWICE A DAY IF NEEDED FOR ANXIETY 180 tablet 1 ibuprofen (AdviL) 200 mg tablet Take 1 tablet (200 mg total) by mouth every 6 (six) hours. Patient Buy OTC montelukast (SINGULAIR) 10 mg tablet Take 1 tablet (10 mg total) by mouth at bedtime. 90 tablet 1 valACYclovir (VALTREX) 500 mg tablet Take 2 tablets (1,000 mg total) by mouth 1 (one) time each day. 180 tablet 1 documented in this encounter Plan of Treatment Upcoming Encounters Date Type Department Care Team (Late st Contact Info) Description 12/07/2025 8:30 AM EST Office Visit Adult Medicine [address] [id number] [place] [address] [place] [id number] documented as of this encounter Visit Diagnoses Diagnosis Acute right lower quadrant pain- Primary Calculus of gallbladder without cholecystitis without obstruction Uterine leiomyoma, unspecified location documented in this encounter Additional Health Concerns Assessment Noted Time PHQ-9 Depression Total Score: 7 11/30/19 25 3:09 PM EST documented as of this encounter Care Teams Wel[employer] Relationship Specialty Start Date End Date Mikaela Fischer MD [address] [place] [phone] PCP - General 09/20/22 documented as of this encounter
[2025-09-21 13:42] VITALS: BP 133/43; PULSE 83; O2SAT 98
[2025-09-21 13:52] VITALS: BP 121/61; PULSE 83; RESP 18; TEMP 36.8; O2SAT 97; BMI 42.1
--- NOTE | 2025-09-21 15:15 | ED.ABDPAIN ---
HPI - Abdominal Pain General Chief Complaint: Abdominal Pain Stated Complaint: LOWER ABD PAIN Time Seen by Provider: 09/21/25 14:07 Source: patient, EMS and old records reviewed Mode of arrival: EMS History of Present Illness ED Provider: FAVIO LI narrative: 31-year-old female with past medical history of ectopic although she is unsure what side she had her surgery on, ovarian cysts, asthma she reports starting with right-sided abdominal pain that radiates from the right upper quadrant to the right lower quadrant since Saturday. She has had nausea, no diarrhea, no fevers. She denies any urinary symptoms and has no vaginal discharge she denies any STI concerns given her partner is deployed. She notes she was seen yesterday at [facility] at that time she had a CT scan which showed a large gallstone but no inflammatory changes, pelvic ultrasound that showed normal findings, she had a white count of 16. She reports she went to her PCP today as she was still having pain they called 911 from the office and transferred her to our ED. MD elicited complaint: abdominal pain Pertinent past history: none Onset (ago): day(s) (2) Pain Consistency: constant Location: RUQ and RLQ Severity: severe Quality: stabbing Radiation: none Migration to: no migration Exacerbating factors: movement Relieving factors: nothing Associated symptoms: nausea and chills Related Data Home Medications ?Medication ?Instructions ?Recorded ?Confirmed albuterol sulfate 90 mcg/actuation 1 inh inhalation QID PRN Wheezing 01/25/23 08/05/24 aerosol inhaler aripiprazole 5 mg tablet 5 mg PO DAILY 01/25/23 08/05/24 fluticasone propionate 110 1 puff inhalation BID 01/25/23 08/05/24 mcg/actuation HFA aerosol inhaler (Flovent HFA) hydroxyzine HCl 25 mg tablet 12.5 - 25 mg PO BID PRN anxiety 01/25/23 08/05/24 valacyclovir 500 mg tablet 500 mg PO BID 01/25/23 08/05/24 Previous Rx's ?Medication ?Instructions ?Recorded cefuroxime axetil 500 mg tablet 500 mg PO BID #20 tabs 01/26/23 ibuprofen 600 mg tablet 600 mg PO Q6H PRN pain #30 tabs 01/28/24 naproxen 500 mg tablet 500 mg PO BID PRN pain 7 days #14 08/05/24 tabs Allergies Allergy/AdvReac Type Severity Reaction Status Date / Time Iodinated Contrast Media (IV Allergy Severe ANAPHYLAXIS Verified 09/21/25 13:56 CONTRAST) contrast dye Allergy Severe anaphylaxis Uncoded 08/05/24 13:40 Review of Systems Review of Systems Constitutional : No Weight loss, No Fever, No Chills Eyes: No Swelling, No Redness Cardiovascular : No Chest Pain, No SOB, NoEdema Respiratory : No Cough, No Sputum, No Wheezing Gastrointestinal : Positive Nausea, no Vomiting, no Diarrhea, positive abdominal Pain, No Hematochezia, No Melena Genitourinary : No Dysuria, No Urinary Frequency, No Hematuria, No Urgency Musculoskeletal : No joint pain, No Myalgias, No Joint Swelling Skin : No Skin Lesions, No rash All other systems reviewed and are negative. [facility] Past Medical History Attestation statement: The following information was validated with the patient. Source: old records reviewed Medical History delivery delivered Social History Social History Household Members: Family Housing: House Do you presently have visiting nurse or other home services: No Alcohol intake: former Patient Tobacco Use Status: Never used Tobacco Smoked in Last 30 Days: No e-Cigarette/Vaping Use: Former Use Use of substances other than those prescribed or required for medical reasons: No Advance Directives: No Advance Directives Information Provided: Yes Do you have a plan to hurt others: No Plan Patient : No service: No Current occupational status: unemployed Physical Exam ED Vital Signs: Vital Signs - 24 hr 09/21/25 13:52 09/21/25 15:50 09/21/25 15:51 Temperature 98.3 F Pulse Rate 83 68 68 Respiratory Rate 18 18 18 Blood Pressure 121/61 133/70 133/70 Pulse Oximetry 97 99 99 Oxygen Delivery Method Room Air Room Air Room Air 09/21/25 18:00 09/21/25 21:21 Temperature 98.1 F Pulse Rate 72 84 Respiratory Rate 20 16 Blood Pressure 130/68 131/63 Pulse Oximetry 96 99 Oxygen Delivery Method Room Air Room Air BMI result Body Mass Index 42.1 Appearance: Alert. Oriented X3. No acute distress. Eyes: Pupils equal, round and reactive to light. ENT: Pharynx normal. Neck: Normal inspection. Neck supple. CVS: Normal heart rate and rhythm. Pulses normal. Respiratory: No respiratory distress. Breath sounds normal. Abdomen: Soft and she has moderate tenderness on the right side of the abdomen, no rebound, I could not elicit a Coffman sign on my exam, she is obese I am unsure if this is limiting her exam Skin: Skin warm and dry. Normal skin color. Normal skin turgor. Extremities: No lower extremity edema. No calf ttp Neuro: Oriented X 3. No motor deficit. No sensory deficit. Course Course Course Narrative: Signed out to Dr. Gage at 16:00 Nevaeh Ortega, DO 09/21/25 6425 Medical Decision Making Medical Decision Making [facility] Narrative: 31-year-old female with past medical history of ectopic although she is unsure what side she had her surgery on, ovarian cysts, asthma here with complaint of right-sided abdominal pain with a workup at [facility] showing large gallstone but otherwise no appendicitis this was done with IV contrast after premedication, she also had pelvic ultrasound showing no ovarian pathology. At this time I am ordering IV morphine for pain, labs, focused ultrasound exam of the gallbladder/CBD. I received sign-out from my colleague Dr. Ortega Ultrasound: Cholelithiasis. Patient was already been seen at [facility] and she was diagnosed with cholelithiasis. Patient complaining of worsening pain, crying. I reviewed patient's records from [facility], yesterday she had a full workup including ultrasound and CT scan. However, patient claims that she is having worsening symptoms. CT scan of the abdomen and ultrasound were repeated, No obvious signs of acute cholecystitis, appendicitis or ovarian torsion Patient has had multiple doses of ketorolac, morphine, Dilaudid, still stating that she has a lot of pain. I discussed the patient with Dr. Ortega from surgery, we will admit the patient for observation. Differential Diagnosis Differential Diagnoses: The differential diagnosis associated with the presentation includes Renal colic, biliary colic, gastritis, abdominal pain Admission/Observation Consideration of admission/observation: Escalation of care including admission/observation considered Lab Data [facility] Lab Attestation statement: I reviewed the patient's lab results. Her elevated white blood cell count is chronic this is nothing new 09/21/25 15:09 09/21/25 15:08 Labs: Lab Results 09/21/25 09/21/25 09/21/25 Range/Units 15:08 15:09 20:46 WBC 14.7 H (4.8-10.8) X10*3/uL RBC 4.51 (4.20-5.50) X10*6/uL Hgb 13.8 (12.0-16.0) g/dl Hct 40.9 (37.0-47.0) % MCV 90.7 (80.0-98.0) fL MCH 30.6 (27.0-33.0) pg MCHC 33.7 (31.0-35.0) g/dl RDW 12.0 (11.0-16.0) % Plt Count 262 (160-400) X10*3/uL MPV 10.3 (9.4-12.3) fL Immature Gran % (Auto) 0.5 H (0.0-0.4) % Neut % (Auto) 79.2 H (45-73) % Lymph % (Auto) 13.5 L (20-40) % [place] % (Auto) 6.1 (2-11) % Eos % (Auto) 0.4 (0-4) % Baso % (Auto) 0.3 (0-2) % Lymph # (Auto) 2.0 (1.2-4.9) X10*3/uL [place] # (Auto) 0.9 (0.1-1.2) X10*3/uL Eos # (Auto) 0.1 (0.0-0.4) X10*3/uL Baso # (Auto) 0.1 (0.0-0.2) X10*3/uL Abs Immat Gran (auto) 0.08 H (0.00-0.03) X10*3/uL Absolute Neuts (auto) 11.6 H (2.0-8.3) x10*3/uL Absolute Nucleated RBC 0.000 (0.0-0.012) X10*3/uL Nucleated RBC % (auto) 0.0 (0.0-0.2) /100WBC Smear Tech's Comments VERIFIED Sodium 137 (135-145) mmol/L Potassium 3.8 (3.3-5.1) mmol/L Chloride 105 (96-108) mmol/L Carbon Dioxide 22 (22-29) mmol/L Anion Gap 14 (12-20) BUN 7 L (9-16) mg/dL Creatinine 0.67 (0.5-1.4) mg/dL Estim Creat Clear Calc 154.9 Estimated GFR > 60 Random Glucose 90 (60-115) mg/dL Calcium 9.1 (8.4-10.2) mg/dL Magnesium 1.9 (1.6-2.6) mg/dL Total Bilirubin 0.5 (0.0-1.0) mg/dL Direct Bilirubin 0.2 (0.0-0.5) mg/dL AST 20 (5-31) U/L ALT 8 (0-31) U/L Alkaline Phosphatase 67 (39-117) U/L C-Reactive Protein 11.28 H (< or = 0.50) mg/dL Total Protein 7.3 (6.5-8.0) g/dL Albumin 4.2 (3.5-5.0) g/dL Lipase 24 (8-78) U/L Beta HCG, Quant < 2 mIU/mL Urine Color Dark Yellow Urine Appearance Cloudy Urine pH 5.5 (5.0-9.0) Ur Specific [place] >= 1.030 H (1.005-1.025) Urine Protein 30 (1+) H (Neg-Trace) mg/dL Urine Glucose (UA) Negative (Negative) mg/dL Urine Ketones 40 (Negative) mg/dL Urine Blood Negative (Negative) Urine Nitrite Negative (Negative) Ur Leukocyte Esterase Trace H (Negative) Urine RBC 0-2 (0-2) /HPF Urine WBC 0-5 (0-5) /HPF Ur Squamous Epith Cells 3-5 (0-2) /HPF Urine Bacteria Trace (None Seen) Hyaline Casts 11-20 (0-2) /LPF Urine Opiates Screen POSITIVE H (Not Detect) Ur Buprenorphine Scrn Not Detected (Not Detect) ng/mL Ur Oxycodone Screen Positive H (Not Detect) ng/mL Urine Methadone Screen Not Detected (Not Detect) ng/mL Urine Fentanyl Screen POSITIVE H (Not Detect) Ur Barbiturates Screen Not Detected (Not Detect) Ur Phencyclidine Scrn Not Detected (Not Detect) Ur Amphetamines Screen Not Detected (Not Detect) U Benzodiazepines Scrn Not Detected (Not Detect) Urine Cocaine Screen Not Detected (Not Detect) U Marijuana (THC) Screen POSITIVE H (Not Detect) Independent Interpretation I performed an independent interpretation of an: Ultrasound and CT Scan Radiology Impression Discussion of test interpretation with radiology: I have reviewed the radiologist's reading. Radiologist Impression: 2.5 cm gallstone in the gallbladder. No biliary ductal dilatation. Unenhanced liver, spleen and pancreas are within normal limits. Adrenal glands are normal. No renal or ureteral stones and no hydronephrosis or hydroureter. No perinephric stranding. No bowel obstruction, pneumoperitoneum, or pneumatosis. No free fluid. Normal appendix. Uterus appears prominent. Urinary bladder is empty. No aneurysm of the abdominal aorta. Small fat containing umbilical hernia. No acute fracture. IMPRESSION: 1. No acute findings. 2. Cholelithiasis. 1. Fibroid uterus. 2. Ovaries are not visualized. Correlate with history of oophorectomy. 3. Trace free fluid. GALLBLADDER: There is a 2.3 cm shadowing stone within the gallbladder. Superficial portion of the gallbladder wall thickness is upper limits of normal measuring 3 mm. Remaining portions of gallbladder wall. There is no report tenderness by the histotechnologist supervisor. Independent Historian Clinical information obtained from an independent historian. History obtained from or confirmed by: EMS External Record Review External record reviewed: Inpatient record, Outpatient record and Prior outpatient labs Medications Administered Discontinued Medications Generic Name Dose Route Start Last Admin Trade Name Freq PRN Reason Stop Dose Admin Hydromorphone HCl 0.5 mg 09/22/25 00:34 09/22/25 00:43 Hydromorphone Hcl 0.5 Mg/0.5 Ml Syringe IVPUSH 09/22/25 00:35 0.5 mg ONCE ONE Administration Protocol Sodium Chloride 1,000 mls @ 999 mls/hr 09/21/25 19:15 09/21/25 23:09 Ns IV 09/21/25 20:15 Infused .Q1H1M МАРИЯ Infusion Ketorolac Tromethamine 15 mg 09/21/25 14:49 09/21/25 15:09 Ketorolac Tromethamine 15 Mg/Ml Vial IVPUSH 09/21/25 14:50 15 mg ONCE ONE Administration Ketorolac Tromethamine 15 mg 09/21/25 17:55 09/21/25 18:22 Ketorolac Tromethamine 15 Mg/Ml Vial IVPUSH 09/21/25 17:56 15 mg ONCE ONE Administration Morphine Sulfate 4 mg 09/21/25 14:49 09/21/25 15:09 Morphine Sulfate 4 Mg/Ml Cartridge IVPUSH 09/21/25 14:50 4 mg ONCE ONE Administration Protocol Morphine Sulfate 4 mg 09/21/25 21:43 09/21/25 21:51 Morphine Sulfate 4 Mg/Ml Cartridge IVPUSH 09/21/25 21:44 4 mg ONCE ONE Administration Protocol Ondansetron HCl 4 mg 09/21/25 14:49 09/21/25 15:09 Ondansetron Hcl 4 Mg/2 Ml Vial IVPUSH 09/21/25 14:50 4 mg ONCE ONE Administration Prochlorperazine Edisylate 5 mg 09/22/25 00:34 09/22/25 00:42 Prochlorperazine Edisylate 10 Mg/2 Ml Vial IVPUSH 09/22/25 00:35 5 mg ONCE ONE Administration Critical Care Time Critical Care Time Critical Care Time: Yes Total Critical Care Time: 60 Attestation: I have personally provided critical care time. Time includes review of lab data, radiology results, discussion with consultants, and monitoring for potential decompensation. Intervention performed as documented. Discharge Plan Discharge Clinical Impression: Abdominal pain Patient Disposition: Admitted As Inpatient
[2025-09-21 15:50] VITALS: BP 133/70; PULSE 68; RESP 18; O2SAT 99
[2025-09-21 15:50] LABS: Hemoglobin 13.8 g/dl (12.0-16.0); Imm Gran Abs Auto 0.08 X10*3/uL (0.00-0.03); Imm Gran Pct Auto 0.5 % (0.0-0.4); MANUAL DIFF FLAG SCAN; NRBC Abs Auto 0.000 X10*3/uL (0.0-0.012); NRBC Pct Auto 0.0 /100WBC (0.0-0.2); PLT CLUMP 1; SCAN SMEAR FLAG 1
[2025-09-21 15:51] VITALS: BP 133/70; PULSE 68; RESP 18; O2SAT 99
[2025-09-21 15:51] LABS: Hematocrit 40.9 % (37.0-47.0); Lymphocytes Absolute Auto 2.0 X10*3/uL (1.2-4.9); Mean Corpuscular HGB Conc 33.7 g/dl (31.0-35.0); Mean Corpuscular Hemoglobin 30.6 pg (27.0-33.0); Mean Corpuscular Volume 90.7 fL (80.0-98.0); Red Blood Count 4.51 X10*6/uL (4.20-5.50)
[2025-09-21 16:01] LABS: Alanine Aminotransferase 8 U/L (0-31); Albumin Level 4.2 g/dL (3.5-5.0); Alkaline Phosphatase 67 U/L (39-117); Anion Gap 14 (12-20); Aspartate Amino Transferase 20 U/L (5-31); Blood Urea Nitrogen 7 mg/dL (9-16); Calcium 9.1 mg/dL (8.4-10.2); Carbon Dioxide 22 mmol/L (22-29); Chloride 105 mmol/L (96-108); Creatinine Clr Calc Pharmacy 154.9; Estimated Glomerular Filt Rate > 60; Lipase 24 U/L (8-78); Magnesium 1.9 mg/dL (1.6-2.6); Potassium 3.8 mmol/L (3.3-5.1); Sodium 137 mmol/L (135-145); Total Protein 7.3 g/dL (6.5-8.0)
[2025-09-21 16:02] LABS: White Blood Count 14.7 X10*3/uL (4.8-10.8)
[2025-09-21 16:23] LABS: Platelet Count 262 X10*3/uL (160-400)
[2025-09-21 18:00] VITALS: BP 130/68; PULSE 72; RESP 20; O2SAT 96
--- NOTE | 2025-09-21 18:23 | MHC.EDTECH ---
spoke to patient x3 about giving us a urine sample pt states she can not without food or drink
[2025-09-21 20:53] LABS: Appearance Urine Cloudy; Glucose Urine UA Negative (Negative); PH 5.5 (5.0-9.0); Specific Gravity - Urine >= 1.030 (1.005-1.025); UMIC TRIGGER UACC YES
[2025-09-21 21:21] VITALS: BP 131/63; PULSE 84; RESP 16; TEMP 36.7; O2SAT 99
[2025-09-21 22:23] LABS: Cannabinoid Screen Urine POSITIVE (Not Detect)
--- NOTE | 2025-09-22 00:48 | PC.NURSE ---
This RN assumed pt care @ 2300. Pt a&ox4, no signs of distress. Pt reports 06/13 pain Pt medicated per mar Plan of care ongoing.
[2025-09-22 01:17] VITALS: BP 113/52; PULSE 77; RESP 16; TEMP 36.9; O2SAT 97
[2025-09-22] MEDS: Lactated Ringers 1,000 ML 125 ML IVCONT ×2 (02:00→10:29)
--- NOTE | 2025-09-22 02:18 | PC.NURSE ---
Pt medicated per jan Pt reports /10 pain Plan of care ongoing.
--- NOTE | 2025-09-22 06:17 | PM.HPGS ---
History of Present Illness History of Present Illness Date of Service: 09/22/25 <Tri Degroot PA-C - Last Filed: 09/22/25 08:41> 09/22/25 <Wyatt Yancey MD - Last Filed: 09/22/25 08:18> Chief complaint: abdo pain <Tri Degroot PA-C - Last Filed: 09/22/25 08:41> Narrative: Keira Dunaway is a 35 year old female with PMH of asthma, ovarian cysts, ectopic who presented to the ED with complaints of right lower abdominal pain. She reports the pain began on Saturday and was severe. It was associated with nausea and vomiting as well as anorexia. She was unable to keep anything down and had no appetite. She also had diarrhea over the weekend. She felt so ill she was unable to care for her children she reports. The pain persisted and she went to [facility] on Saturday and diagnosed with gallstones and discharged to home. She reports she went to her PCP today as she was still having pain they called 911 from the office and transferred her to [facility]. Work up included CBC, BMP, LFTs which was significant for a leukocyutosis of 14.7. CT scan abd pelvis, ABD US and pelvic US were also performed which showed large gallstone, without pericholecystic changes and no other acute findings. Normal appendix, no surrounding inflammatory changes. Patient had multiple doses of ketorolac, morphine, dilaudid without significant improvement in her pain and was therefore admitted overnight for observation. She feels significantly improved this morning and reports resolution of the pain. Last dose of dilaudid was a little after midnight. She denies previous episodes of RUQ pain. She feels hungry. She denies further nausea, vomiting, fevers, chills, dysuria, vaginal discharge. She is passing flatus and had a normal BM. PSH significant for 2 C sections. She has a history of left ectopic tubal and required left salpingoophorectomy and right salpingectomy. She reports still having her right ovary. <Tri Degroot PA-C - Last Filed: 09/22/25 08:41> Review of Systems Cardiovascular: Cardiovascular: Denies chest pain and Denies dyspnea <Tri Degroot PA-C - Last Filed: 09/22/25 08:41> Respiratory: Respiratory: Denies dyspnea <Tri Degroot PA-C - Last Filed: 09/22/25 08:41> Musculoskeletal: Musculoskeletal: Denies numbness <Tri Degroot PA-C - Last Filed: 09/22/25 08:41> Integumentary/Breasts: Skin/Breast: Denies rash and Denies jaundice <Tri Degroot PA-C - Last Filed: 09/22/25 08:41> Neurologic: Denies numbness <Tri Degroot PA-C - Last Filed: 09/22/25 08:41> PMFSH Past Medical History Medical History: Medical History (Updated 09/21/25 @ 15:29 by Nevaeh Ortega DO) delivery delivered <BRIDGET Roberts Last Filed: 09/22/25 08:41> Surgical History Surgical History: Surgical History (Updated 09/22/25 @ 08:31 by Tri Degroot PA-C) History of <BRIDGET Roberts Last Filed: 09/22/25 08:41> Social History Social History: Social History Household Members: Children Housing: House Do you presently have visiting nurse or other home services: No Alcohol intake: former Patient Tobacco Use Status: Never used Tobacco Smoked in Last 30 Days: No e-Cigarette/Vaping Use: Former Use Use of substances other than those prescribed or required for medical reasons: No Have you been hit, kicked, punched, or otherwise hurt by someone within the past year? If so, by whom?: No Do you feel safe in your current relationship?: Yes Is there a partner from a previous relationship who is making you feel unsafe now?: No Are you made to feel afraid or neglected: No Advance Directives: No Advance Directives Information Provided: Yes Do you have a plan to hurt others: No Plan Recently lost weight without trying: No Nutrition Risks: No Nutritional Risk Patient : No : No Poor oral hygiene: No service: No Current occupational status: unemployed <BRIDGET Roberts Last Filed: 09/22/25 08:41> Meds Allergies/Adverse reactions: Allergies Allergy/AdvReac Type Severity Reaction Status Date / Time Iodinated Contrast Media (IV Allergy Severe ANAPHYLAXIS Verified 09/21/25 13:56 CONTRAST) contrast dye Allergy Severe anaphylaxis Uncoded 08/05/24 13:40 <Tri Degroot PA-C - Last Filed: 09/22/25 08:41> Active Medications: Current Medications Acetaminophen (Acetaminophen 325 Mg Tablet) 650 mg PO Q6H PRN PRN Reason: Pain, Mild 1-3,fever,headache Hydromorphone HCl (Hydromorphone Hcl 1 Mg/Ml Syringe) 1 mg IVPUSH ONCE PRN; Protocol PRN Reason: Pain, Severe (Pain Scale 7-10) Lactated Ringer's (Lr) 1,000 mls @ 125 mls/hr IVCONT .Q8H [facility] Last Admin: 09/22/25 02:00 Dose: 125 mls/hr Piperacillin Sod/Tazobactam (Sod 3.375 gm/ Sodium Chloride) 50 mls @ 100 mls/hr IV RQ6H [facility] Melatonin (Melatonin 3 Mg Tablet) 6 mg PO BEDTIME PRN PRN Reason: Insomnia Ondansetron HCl (Ondansetron Hcl 4 Mg/2 Ml Vial) 4 mg IVPUSH Q8H PRN PRN Reason: Nausea and Vomiting Sodium Chloride (0.9 % Sodium Chloride Flush 3 Ml Syringe) 3 ml IVFLUSH QSHIFT МАРИЯ <Tri Degroot PA-C - Last Filed: 09/22/25 08:41> Home medications: Home Medications ?Medication ?Instructions ?Recorded ?Confirmed ?Last Taken ?Type albuterol sulfate 90 mcg/actuation 1 inh inhalation QID PRN Wheezing 01/25/23 08/05/24 01/22/23 History aerosol inhaler aripiprazole 5 mg tablet 5 mg PO DAILY 01/25/23 08/05/24 01/22/23 History fluticasone propionate 110 1 puff inhalation BID 01/25/23 08/05/24 01/22/23 History mcg/actuation HFA aerosol inhaler (Flovent HFA) hydroxyzine HCl 25 mg tablet 12.5 - 25 mg PO BID PRN anxiety 01/25/23 08/05/24 01/22/23 History valacyclovir 500 mg tablet 500 mg PO BID 01/25/23 08/05/24 01/22/23 History <Tri Degroot PA-C - Last Filed: 09/22/25 08:41> Physical Exam Vital Signs: Vital Signs: Last Vital Signs Temp 98.4 F 09/22/25 01:17 Pulse 77 09/22/25 01:17 Resp 16 09/22/25 01:17 BP 113/52 L 09/22/25 01:17 Pulse Ox 97 09/22/25 01:17 O2 Del Method Room Air 09/22/25 01:17 BMI result Body Mass Index 42.1 <Tri Degroot PA-C - Last Filed: 09/22/25 08:41> Const: General: comfortable, no acute distress and alert <BRIDGET Roberts Last Filed: 09/22/25 08:41> Orientation/consciousness: patient oriented x3 <Tri Degroot PA-C - Last Filed: 09/22/25 08:41> Resp: Effort & Inspection: normal respiratory effort, able to speak in complete sentences and not tachypneic <BRIDGET Roberts Last Filed: 09/22/25 08:41> GI: Other: markedly corpulent abdomen soft, nondistended very mild suprapubic tenderness no RUQ tenderness <BRIDGET Roberts Last Filed: 09/22/25 08:41> Inspection: Yes scar (well healed small port sites at umbilicus and RLQ, LLQ) <Tri Degroot PA-C - Last Filed: 09/22/25 08:41> Palpation (GI): no guarding and not rigid <Tri Degroot PA-C [place] Last Filed: 09/22/25 08:41> Percussion: Yes normal to percussion <BRIDGET Roberts Last Filed: 09/22/25 08:41> Skin: Other: warm and dry <BRIDGET Roberts Last Filed: 09/22/25 08:41> General skin exam: no jaundice <Tri Degroot PA-C Last Filed: 09/22/25 08:41> Neuro: General: patient oriented x3 and moves all extremities <BRIDGET Roberts Last Filed: 09/22/25 08:41> Results Results Labs: Short CBC 09/21/25 Range/Units 15:09 WBC 14.7 H (4.8-10.8) X10*3/uL Hgb 13.8 (12.0-16.0) g/dl Hct 40.9 (37.0-47.0) % Plt Count 262 (160-400) X10*3/uL BMP 09/21/25 15:08 Sodium 137 Potassium 3.8 Chloride 105 Carbon Dioxide 22 BUN 7 L Creatinine 0.67 Calcium 9.1 Liver Function 09/21/25 Range/Units 15:08 Total Bilirubin 0.5 (0.0-1.0) mg/dL Direct Bilirubin 0.2 (0.0-0.5) mg/dL AST 20 (5-31) U/L ALT 8 (0-31) U/L Alkaline Phosphatase 67 (39-117) U/L Albumin 4.2 (3.5-5.0) g/dL Urine 09/21/25 Range/Units 20:46 Urine Color Dark Yellow Urine Appearance Cloudy Urine pH 5.5 (5.0-9.0) Ur Specific Kingsley >= 1.030 H (1.005-1.025) Urine Protein 30 (1+) H (Neg-Trace) mg/dL Urine Glucose (UA) Negative (Negative) mg/dL <BRIDGET Roberts Last Filed: 09/22/25 08:41> Abdomen CT scan report/results: report reviewed and image reviewed <BRIDGET Roberts Last Filed: 09/22/25 08:41> Abdominal ultrasound report/results: report reviewed and image reviewed <BRIDGET Roberts Last Filed: 09/22/25 08:41> Additional studies: labs reviewed <BRIDGET Roberts Last Filed: 09/22/25 08:41> Assessment and Plan (1) Abdominal pain: Qualifiers: Abdominal location: right upper quadrant Qualified Code(s): R10.11 - Right upper quadrant pain <Tri Degroot PA-C - Last Filed: 09/22/25 08:41> Status: Acute <Tri Degroot PA-C - Last Filed: 09/22/25 08:41> History reviewed She actually had diarrhea and right lower quadrant pain Abdomen is currently soft, benign, no tenderness at all No Coffman's sign CAT scan images reviewed - gallstone noted without signs of cholecystitis Overall clinical picture not has a gallbladder disease I did explain to her that she may have hit from gallbladder surgery at some point Advised her on the benefits of weight loss Diet as tolerated Possible DC home later on today Seen and examined independently 35 year old female with PMH of asthma, ovarian cysts, ectopic presenting with c/o lower abdominal pain associated with nausea/vomiting and diarrhea that began over the weekend. CT scan revealed a large gallstone without any inflammatory changes and normal appendix without any surrounding inflammatory changes. She was admitted for observation due to intractable pain with concern for acute cholecystitis in view of her gallstone however feels significantly improved this morning with resolution of her symptoms. Overall her picture is not consistent with acute cholecystitis and may be suggestive of gastroenteritis. her abdomen is very benign this morning. Will advance diet and if tolerating, stable for discharge to home today with f/u with her PCP. She has no prior episodes of RUQ pain, however we did discuss if she develops these, she can follow up in the office regarding her cholelithiasis however it does not currently appear to be the source of her pain. She is very comfortable with this plan. <Tri Degroot PA-C - Last Filed: 09/22/25 08:41> History reviewed She actually had diarrhea and right lower quadrant pain Abdomen is currently soft, benign, no tenderness at all No Coffman's sign CAT scan images reviewed - gallstone noted without signs of cholecystitis Overall clinical picture not has a gallbladder disease I did explain to her that she may have hit from gallbladder surgery at some point Advised her on the benefits of weight loss Diet as tolerated Possible DC home later on today Seen and examined independently <Wyatt Yancey MD - Last Filed: 09/22/25 08:18> Quality Stroke Does the patient have a stroke diagnosis?: No <Tri Degroot PA-C - Last Filed: 09/22/25 08:41> VTE Prior VTE?: No <Tri Degroot PA-C - Last Filed: 09/22/25 08:41> VTE Risk Level:: Surgical - low <Tri Degroot PA-C - Last Filed: 09/22/25 08:41> VTE Device Contraindication: N/A - Device Ordered <Tri Degroot PA-C - Last Filed: 09/22/25 08:41> VTE Drug Contraindication: Treatment Not Indicated <Tri Degroot PA-C - Last Filed: 09/22/25 08:41> Procedures Date of Service Date of Service: 09/22/25 <Tri Degroot PA-C - Last Filed: 09/22/25 08:41> 09/22/25 <Wyatt Yancey MD - Last Filed: 09/22/25 08:18>
--- NOTE | 2025-09-22 06:43 | PC.NURSE ---
[facility] Plan of care ongoing.
--- NOTE | 2025-09-22 07:56 | PC.NURSE ---
patient reports improvement in her pain, ambulates independently to bathroom. awaiting dispo from surgery. denies any pain, states she feels hungry. call branch within reach
--- NOTE | 2025-09-22 09:09 | PC.NURSE ---
plan to PO challenge patient, regular diet ordered from provider.
--- NOTE | 2025-09-22 09:10 | PHA.MEDREC ---
Pharmacy Consult ? Medication Reconciliation Pharmacy has completed the medication reconciliation. Spoke with pt to confirm medications. Pt has not taken her medications in 2-3 days.
--- OUTSIDE RECORDS SUMMARY | 2025-09-22 10:17 | XMS_ITS | Encounter Summary ---
Author Organization [employer] Address [address] [place] [address] Care Team Providers Care Suture Winder Hand Name Role Phone Mikaela Fischer MD Primary Care Provider [phone] Reason for Visit * Reason Onset Date Comments Foot Injury 10/02/2024 Encounter Details Date Type Department Care Team (Late st Contact Info) Description 10/02/2024 Nurse Triage Adult Medicine [address] [phone] Mikaela Fischer MD [address] [place] [address] Social History Tobacco Use Types Packs/Day Years Used Date Smoking Tobacco: Former Cigarettes 0.5 5.5 0 04/14/2008 - 10/14/2013 Smokeless Tobacco: Never Alcohol Use Standard Drinks/Week Comments Yes 0 (1 standard drink = 0.6 oz pur e alcohol) Comments Unknown Sex and Gender Information Value Date Recorded Sex Assigned at Not on file Legal Sex Female 5:08 AM EST Gender Identity Not on file Sexual Orientation Not on file documented as of this encounter Progress Notes * Natalia Jiménez RN - 10/05/2024 12:45 PM EST Reason for Disposition ??? [1] Caller can't get FB out AND [2] causing no pain (Exception: Tiny, superficial, pain-free FBs; since these don't need to be removed.) Answer Assessment - Initial Assessment Questions 1. MECHANISM: How did it happen? Unknown 2. LOCATION: Where is the FB (e.g., splinter) located? Right heel bottom of her foot , area is not red or swollen;, drainage . Has a black spot which she thinks is a FB 3. OBJECT: What type of FB was it? Unknown 4. DEPTH: How deep do you think the FB goes? Unknown 5. ONSET: When did the injury occur? (Minutes or hours) 2 1/2 weeks 6. PAIN: Is it painful? If Yes, ask: How bad is the pain? (Scale 1-10; or mild, moderate, severe) Moderate, c/o pain when she walks or touches the area 7. TETANUS: When was the last tetanus booster? 2015 8. : Is there any chance you are ? When was your last menstrual period? Protocols used: Skin Foreign Body-A-AH * Kasandra Uriostegui - 10/02/2024 2:31 PM EST Patient call requires triage: Symptoms patient is presenting: patient is calling stating she has a foreign object in the heal part of her right heal. Called last week during convention week. Was told that she was gong to get a call back to make appointment. Called again today to schedule appointment however soonest appointment woudnt be till the week of November. Patient says right foot is severely in pain due to foreign object. Patient want call back. How long has patient had these symptoms?: pass two weeks For ALL patients calling to schedule any appointment (routine, sick visit, follow up, consult, etc.) in the outpatient setting please ask the following questions: Do you have fever of higher than 101, sore throat with difficulty swallowing or severe shortness ofbreath? no If YES to any of these above symptoms, send a message to triage and do not book. Red dot. If no, an audio or video visit should be booked. Have you had close contact with someone with Coronavirus in the last 14 days? no Have you traveled abroad? no Have you traveled recently to another state outside of [place], [place], [place], [place], [place], [place], [place]? no o If yes, did you quarantine for 14 days or have a negative covid test? no If yes to any of the above, patient is not to be scheduled in office until after 14 day quarantine or negative covid test. If pain or injury related was it due to an accident at work or from a motor vehicle accident? If yes, date of accident/Injury: No If yes, gather 3rd republican insurance information Third Republican Information: not applicable PCP: Mikaela Fischer MD Payor: [employer] PLAN / Plan: deeplocal MEDICAID / Product Type: *No Product type* / documented in this encounter Plan of Treatment Upcoming Encounters Date Type Department Care Team (Late st Contact Info) Description 12/07/2025 8:30 AM EST Office Visit Adult Medicine [address] [phone] [place] [address] [place], [place] documented as of this encounter Visit Diagnoses Not on filedocumented in this encounter Care Teams Suture Winder Hand Relationship Specialty Start Date End Date Mikaela Fischer MD [address] [place] [address] PCP - General 09/20/22 documented as of this encounter
--- OUTSIDE RECORDS SUMMARY | 2025-09-22 10:17 | XMS_ITS | Encounter Summary ---
Author Organization [employer] Address [address] [place] [address] Care Team Providers Care Operations Mgr Name Role Phone Mikaela Landeros MD Primary Care Provider Reason for Visit * Reason Onset Date Comments Hospitalization/ER 09/21/2025 Abdominal Pain 09/21/2025 Cholelithiasis 09/21/2025 Encounter Details Date Type Department Care Team (Late st Contact Info) Description 09/21/2025 Telephone Adult Medicine [address] [phone] Mikaela Landeros MD [address] [place] [address] Social History Tobacco Use Types Packs/Day Years [...] for your loved ones. For example, child center assistant or elderly care for an older adult? [...] Progress Notes * Natalia Jiménez RN - 09/21/2025 9:02 AM EST Pt to see dr landeros today she needs surg referral * Ana Edith - 09/21/2025 8:47 AM EST Hospital/ER follow up appointment needed Hospital patient was treated at: [facility], [facility] Was this only an ER visit or was the patient admitted to the hospital? ER Visit only Date of visit if ER visit only: 09/20 If patient was admitted what was the date of discharge? Reason/diagnosis for visit or stay: abdominal pain, patient was found to have a large gallstone andtold to see PCP. Patient is still in pain, vomiting, crying from the pain. Patient is confused as to why the hospital did not do surgery, patient also has a ovarian cyst that her OB is following; please advise When was the patient told to follow up? manuela Was visit or stay related to an injury? If yes, what was the date of injury (DOI)? No If yes, was the injury due to: Not 3rd green party related documented in this encounter Plan of Treatment Upcoming Encounters Date Type Department Care Team (Late st Contact Info) Description 12/07/2025 8:30 AM EST Office Visit Adult Medicine [address] [phone] [place] [address] [place] [id number] documented as of this encounter Visit Diagnoses Not on filedocumented in this encounter Additional Health Concerns Assessment Noted Time PHQ-9 Depression Total Score: 7 11/30/19 25 3:09 PM EST documented as of this encounter Care Teams Operations Mgr Relationship Specialty Start Date End Date Mikaela Landeros MD [address] [place] [phone] PCP - General 09/20/22 documented as of this encounter
--- OUTSIDE RECORDS SUMMARY | 2025-09-22 10:19 | XMS_ITS | Clinical Summary ---
Author Organization [facility] Address [address] [place] [address] Phone Care Team Providers Care Clinical Quality Rn Name Role Phone Mikaela Fischer MD Primary Care Provider [phone] Allergies Active Allergy Reactions Criticality Noted Date Comments Iodinated Contrast Media Wheezing 10/09/2016 Hives and sob Medications ibuprofen (AdviL) 200 mg tablet Take 1 tablet (200 mg total) by mouth every 6 (six) hours. Patient Buy OTC Active acetaminophen (TYLENOL) 500 mg tablet Take 1 tablet (500 mg total) by mouth every 6 (six) hours if needed for headaches. Patient By OTC Active budesonide-formot Araceli (SYMBICORT) 160-4.5 mcg/actuation inhalerIndication s:Physical exam Inhale 2 puffs by mouth 2 (two) times a day. 1 each 5 5 Active albuterol HFA (Ventolin HFA) 90 mcg/actuation inhalerIndication s:Physical exam Inhale 2 puffs by mouth every 4 (four) hours if needed for wheezing. 6.7 g 5 Active ammonium lactate (AmLactin) 12 % lotion Apply topically if needed for dry skin. 400 g 2 5 12/03/19 26 Active valACYclovir (VALTREX) 500 mg tabletIndications :HSV (herpes simplex virus) anogenital infection Take 2 tablets (1,000 mg total) by mouth 1 (one) time each day. 180 tablet 1 5 Active montelukast (SINGULAIR) 10 mg tabletIndications :Moderate persistent asthma without complication Take 1 tablet (10 mg total) by mouth at bedtime. 90 tablet 1 5 Active hydrOXYzine HCL (ATARAX) 25 mg tabletIndications :Physical exam TAKE 1/2 TO 1 TABLET BY MOUTH TWICE A DAY IF NEEDED FOR ANXIETY 180 tablet 1 5 Active Active Problems Problem Noted Date Diagnosed Date Anxiety 10/24/2020 Current moderate episode of major depressive disorder ([facility] V24, [facility] V28) 10/24/2020 HSV (herpes simplex virus) anogenital infection 01/04/2017 Asthma 10/14/2015 Migraine with aura and witho ut status migrainosus, not intractable 10/14/2015 Encounters Date Type Department Care Team Description 09/21/2025 12:30 PM EST Office Visit Adult Medicine [address] [phone] Mikaela Fischer MD Acute right lower quadrant pain (Primary Dx); Calculus of gallbladder without cholecystitis without obstruction; Uterine leiomyoma, unspecified location 09/21/2025 Telephone Adult Medicine [address] [phone] Mikaela Fischer MD from Last 3 Months Immunizations Immunization Administration Dates Next Due Influenza trivalent, with pr eservative (Fluzone; Afluria) 6mo and older 07/04/2016,08/09/2010 Pneumococcal polysaccharide 23 valent (Pneumovax 23) 2yo and older 08/09/2010 Tdap Tetanus diptheria acell ular pertussis (Boostrix; Adacel) 7yo and older 07/11/2016 Surgical History Surgery Date Site/Laterality Comments BREAST REDUCTION PROCEDURE: [place] BREAST REDUCTION SECTION PROCEDURE: HISTORICAL DELIVERY; COMMENT: x2 Medical History Medical History Date Comments Asthma DX:Asthma Migraine headache with aura DX:M igraine headache with aura Family History Medical History Relation Name Comments Asthma Brother 1 No Known Problems Brother 2 No Known Problems Brother 3 No Known Problems Daughter : 07/18/2016 Throat cancer Father with metasis, + smoker Alzheimer's disease Maternal Grandfather Alzheimer's disease Maternal Grandmother Hypertension Maternal Grandmother Seizures Maternal Grandmother Asthma Mother Hypertension Mother No Known Problems Sister No Known Problems Son : 06/14/2022 Breast cancer Neg Hx Colon cancer Neg Hx Heart attack Neg Hx Ovarian cancer Neg Hx Stroke Neg Hx Relation Name Status Comments Brother 1 Alive Brother 2 Alive Brother 3 Alive Daughter : 07/18/2016 Alive Father Maternal Grandfather Maternal Grandmother Alive Mother Alive Paternal Grandfather Paternal Grandmother Alive Sister Alive Son : 06/14/2022 Alive Social History Tobacco Use Types Packs/Day Years [...] your loved ones. For example, child care assistant or elderly care for an older [...] on file Sexual Orientation Not on file Obstetrics History Last Filed Vital Signs Vital Sign Reading [...] Mass Index 42.45 09/21/2025 12:33 PM EST Plan of Treatment Upcoming Encounters Date Type Department Care Team (Late st Contact Info) Description 12/07/2025 8:30 AM EST Office Visit Adult Medicine [address] [phone] [place] [address] [place] [id number] Health Maintenance Due Date Last Done Comments COVID-19 Vaccine (#1) 1996 HPV Vaccines (1 - 3-dose SCDM series) 2018 Influenza Vaccine (#1) 2025 07/04/2016, 2009 Social Influencers of Health Screening 11/30/2025 11/30/2024, 01/23/2022 DTaP,Tdap,and Td Vaccines (2 - Td or Tdap) 07/11/2026 07/11/2016 Cervical Cancer Screening: HPV 12/15/2026 12/15/2021 Cholesterol Screening (Lipid Panel) 05/04/2030 05/04/2025, 05/21/2024, 05/21/2024, Additional history exists RSV Immunization Adult Patients (1 - 1-dose 75+ series) 2066 Pneumococcal Vaccine: Pediatrics (0 to 5 Years) and At-Risk Patients (6 to 49 Years) Discontinued 08/09/2010 Depression Screening Completed 11/30/2024 HIV Screening Completed 05/04/2025 Hepatitis C Screening Completed 05/04/2025 HIB Vaccines Aged Out No longer eligi ble based on patient's age to complete this topic Hepatitis A Vaccines Aged Out No long er eligible based on patient's age to complete this topic Hepatitis B Vaccines Discontinued IPV Vaccines Aged Out No longer eligi ble based on patient's age to complete this topic MMR Vaccines Aged Out No longer eligi ble based on patient's age to complete this topic Meningococcal ACWY Vaccine Aged Out N o longer eligible based on patient's age to complete this topic Meningococcal B Vaccine Aged Out No l onger eligible based on patient's age to complete this topic RSV Immunization Patients Under 20 months Aged Out No longer eligible based on patient's age to complete this topic Varicella Vaccines Aged Out No longer eligible based on patient's age to complete this topic Procedures Procedure Name Priority Date/Time Associated Diagnosis Comments HEPATITIS C ANTIBODY Routine 05/04/2025 10:51 AM EDT Physical exam Need for hepatitis C screening test HIV 1, 2 ANTIBODY, P24 ANTIGEN WITH REFLEX TO DIFFERENTIATION Routine 05/04/2025 10:51 AM EDT Physical exam LIPID PANEL WITH REFLEX TO DIRECT LDL Routine 05/04/2025 10:51 AM EDT Physical exam Encounter for screening for cardiovascular disorders HM HPV Routine 12/15/2021 from Last 3 Months or Most Recently Relevant to Health Maintenance Results * Hepatitis C antibody (05/04/2025 10:51 AM EDT) Hepatitis C Antibody Negative Negative LAB CHEMISTRY METHOD 05/04/2025 4:49 PM EDT [facility] Blood Venous blood specimen / Unknown Venipuncture / Unknown 05/04/2025 10:51 AM EDT 05/04/2025 10:51 AM EDT Becki Friedman NP LAB BLOOD ORDERABLES Final R esult Performing Organization Address [facility] Co de Phone Number [facility] [address] [place] [address], [place] [phone] * HIV 1,2 antibody, p24 antigen with reflex to differentiation (05/04/2025 10:51 AM EDT) HIV Combo AB/AG Negative Negative LAB CHEMISTRY METHOD 05/04/2025 4:49 PM EDT [facility] Blood Venous blood specimen / Unknown Venipuncture / Unknown 05/04/2025 10:51 AM EDT 05/04/2025 10:51 AM EDT Narrative [facility] - 05/04/2025 4:49 PM EDT This assay is a 4th generation assay allowing for earlier detection of HIV infection by detecting the presence of the HIV-1 p24 antigen as well as the traditional antibodies to HIV type 1 (including group O) and type 2. Use of a 4th generation assay is the current CDC recommendation for HIV screening. Becki Friedman PROGRAM DIRECTOR GROUP WORK LAB BLOOD ORDERABLES Final R esult Performing Organization Address [facility] Co de Phone Number [facility] [address] [place] [address], [place] [phone] * (ABNORMAL) Lipid panel with reflex to direct LDL (05/04/2025 10:51 AM EDT) [facility] Cholesterol 174 0 - 200 mg/dL LAB CHEMISTRY METHOD 05/04/2025 3:39 PM EDT [facility] Triglycerides 106 0 - 150 mg/dL LAB CHEMISTRY METHOD 05/04/2025 3:39 PM EDT [facility] HDL 52 >=40 mg/dL LAB CHEMISTRY METHOD 05/04/2025 3:39 PM EDT [facility] LDL Calculated 101(H) 0 - 100 mg/dL LAB CHEMISTRY METHOD 05/04/2025 3:39 PM EDT [facility] VLDL Cholesterol Handy 21.2 mg/dL LAB CHEMISTRY METHOD 05/04/2025 3:39 PM EDT [facility] Non HDL Chol. (LDL+VLDL) 122 <145 mg/dL LAB CHEMISTRY METHOD 05/04/2025 3:39 PM EDT [facility] Chol/HDL Ratio 3.3 0.0 - 4.4 LAB CHEMISTRY METHOD 05/04/2025 3:39 PM EDT [facility] Blood Venous blood specimen / Unknown Venipuncture / Unknown 05/04/2025 10:51 AM EDT 05/04/2025 10:51 AM EDT Becki Friedman NP LAB BLOOD ORDERABLES Final R esult [facility] [address] [place] [address], [place] [phone] * Cervical Cancer Screening: HPV (12/15/2021) [facility] Cervical Cancer Screening: HPV Negative, Abstracted Historical Provider HEALTH MAINTENANCE Final Result from Last 3 Months or Most Recently Relevant to Health Maintenance Insurance [facility] Care Teams Clinical Quality Rn Relationship Specialty Start Date End Date Mikaela Fischer MD [address] [place] [phone] PCP - General 09/20/22
--- NOTE | 2025-09-22 10:42 | PM.EVENT ---
Event Note Date of Service: 09/22/25 Event Note: Patient reeevaluated. She tolerated breakfast. She continues to feel well and reports no abdominal pain, nausea, vomiting, diarrhea. She would like to go home. She is hemodynamically stable and clinically appearing well. Her abdomen is completely benign and nontender. She is to follow up with her PCP upon discharge. Time Spent With Patient Time: Total time managing care of this patient today ____ minutes.
--- NOTE | 2025-09-22 10:43 | P.DS_ITS ---
DS: Providers Provider Date of Service: 09/22/25 Date of admission: 09/22/25 00:55 Date of discharge: 09/22/25 [facility] Attending physician on admission: Jennifer Ortega Attending physician on discharge: Wyatt Yancey DS: Diagnosis Discharge Diagnosis (1) Abdominal pain: Status: Acute DS: Summary Hospital Course Hospital Course: HPI AT ADMISSION: Keira Dunaway is a 35 year old female with PMH of asthma, ovarian cysts, ectopic who presented to the ED with complaints of right lower abdominal pain. She reports the pain began on Saturday and was severe. It was associated with nausea and vomiting as well as anorexia. She was unable to keep anything down and had no appetite. She also had diarrhea over the weekend. She felt so ill she was unable to care for her children she reports. The pain persisted and she went to [facility] on Saturday and diagnosed with gallstones and discharged to home. She reports she went to her PCP today as she was still having pain they called 911 from the office and transferred her to [facility] ED. Work up included CBC, BMP, LFTs which was significant for a leukocyutosis of 14.7. CT scan abd pelvis, ABD US and pelvic US were also performed which showed large gallstone, without pericholecystic changes and no other acute findings. Normal appendix, no surrounding inflammatory changes. Patient had multiple doses of ketorolac, morphine, dilaudid without significant improvement in her pain and was therefore admitted overnight for observation. She feels significantly improved this morning and reports resolution of the pain. Last dose of dilaudid was a little after midnight. She denies previous episodes of RUQ pain. She feels hungry. She denies further nausea, vomiting, fevers, chills, dysuria, vaginal discharge. She is passing flatus and had a normal BM. PSH significant for 2 C sections. She has a history of left ectopic tubal and required left salpingoophorectomy and right salpingectomy. She reports still having her right ovary. HOSPITAL COURSE: She was admitted for observation due to intractable pain with concern for acute cholecystitis in view of her gallstone however feels significantly improved this morning with resolution of her symptoms. Imaging showed gallstones, normal appendx, no surrounding inflammatory changes of GB or appendix, no acute pathology. Overall her picture is not consistent with acute cholecystitis and may be suggestive of gastroenteritis. Her abdomen is very benign this morning. Her diet was therefore advanced. She was reeevaluated. She tolerated breakfast. She continues to feel well and reports no abdominal pain, nausea, vomiting, diarrhea. She would like to go home. Her abdomen is completely benign and nontender.We did discuss she does have a gallstone but reports no symptoms suggestive of biliary colic. She can follow up with general surgery if she does develop RUQ pain. She understands this and is comfortable with plan. She was discharged to home on 09/22/25 in stable condition. She is to follow up with her PCP. Status at Discharge Functional status at discharge: independent ambulation Time Attestation Discharge Coordination Time (in mins): 25 Quality: Safe Use of Opioids Does Pt have an Active Cancer Diagnosis on the Problem List?: No Quality: Stroke Does the patient have a stroke diagnosis?: No Physical Exam Vital Signs: Vital Signs: Last Vital Signs Temp 98.4 F 09/22/25 01:17 Pulse 77 09/22/25 01:17 Resp 16 09/22/25 01:17 BP 113/52 L 09/22/25 01:17 Pulse Ox 97 09/22/25 01:17 O2 Del Method Room Air 09/22/25 01:17 BMI result Body Mass Index 42.1 Const: General: comfortable, no acute distress and alert Orientation/consciousness: patient oriented x3 Resp: Effort & Inspection: normal respiratory effort GI: Inspection: No distended Palpation (GI): Soft to palpation and nontender Skin: General skin exam: no rashes or lesions noted and no jaundice Neuro: General: patient oriented x3 DS: Data Data Completed and Pending Labs on day of discharge: Laboratory Results - last 24 hr 09/21/25 09/21/25 09/21/25 15:08 15:09 20:46 WBC 14.7 H RBC 4.51 Hgb 13.8 Hct 40.9 MCV 90.7 MCH 30.6 MCHC 33.7 RDW 12.0 Plt Count 262 MPV 10.3 Immature Gran % (Auto) 0.5 H Neut % (Auto) 79.2 H Lymph % (Auto) 13.5 L Catron % (Auto) 6.1 Eos % (Auto) 0.4 Baso % (Auto) 0.3 Lymph # (Auto) 2.0 Catron # (Auto) 0.9 Eos # (Auto) 0.1 Baso # (Auto) 0.1 Abs Immat Gran (auto) 0.08 H Absolute Neuts (auto) 11.6 H Absolute Nucleated RBC 0.000 Nucleated RBC % (auto) 0.0 Smear Tech's Comments VERIFIED Sodium 137 Potassium 3.8 Chloride 105 Carbon Dioxide 22 Anion Gap 14 BUN 7 L Creatinine 0.67 Estim Creat Clear Calc 154.9 Estimated GFR > 60 Random Glucose 90 Calcium 9.1 Magnesium 1.9 Total Bilirubin 0.5 Direct Bilirubin 0.2 AST 20 ALT 8 Alkaline Phosphatase 67 C-Reactive Protein 11.28 H Total Protein 7.3 Albumin 4.2 Lipase 24 Beta HCG, Quant < 2 Urine Color Dark Yellow Urine Appearance Cloudy Urine pH 5.5 Ur Specific [place] >= 1.030 H Urine Protein 30 (1+) H Urine Glucose (UA) Negative Urine Ketones 40 Urine Blood Negative Urine Nitrite Negative Ur Leukocyte Esterase Trace H Urine RBC 0-2 Urine WBC 0-5 Ur Squamous Epith Cells 3-5 Urine Bacteria Trace Hyaline Casts 11-20 Urine Opiates Screen POSITIVE H Ur Buprenorphine Scrn Not Detected Ur Oxycodone Screen Positive H Urine Methadone Screen Not Detected Urine Fentanyl Screen POSITIVE H Ur Barbiturates Screen Not Detected Ur Phencyclidine Scrn Not Detected Ur Amphetamines Screen Not Detected U Benzodiazepines Scrn Not Detected Urine Cocaine Screen Not Detected U Marijuana (THC) Screen POSITIVE H Discharge Plan Discharge Anticipated Discharge Date/Time: 09/22/25 10:42 Patient Disposition: Home, Self-Care Discharge Diagnosis: abdominal pain Referrals: Group,[facility] [Primary Care Provider, Primary Care] - 1 Week Discharge Medications: Continued valacyclovir 500 mg tablet 1,000 mg PO DAILY hydroxyzine HCl 25 mg tablet 12.5 - 25 mg PO BID PRN (Reason: anxiety) albuterol sulfate 90 mcg/actuation Hfa Aerosol Inhaler 1 inh INHALATION QID PRN (Reason: Wheezing) ibuprofen 600 mg tablet 600 mg PO Q6H PRN (Reason: pain) Qty: 30 0RF ammonium lactate 12 % lotion 1 appl topical DAILY PRN (Reason: Dry Skin) montelukast 10 mg tablet 10 mg PO BEDTIME budesonide-formoterol [Symbicort] 160-4.5 mcg/actuation HFA aerosol inhaler 2 puff INHALATION BID Discharge Orders: Discharge Order (Routine); Ordered 09/22/25 Ordered By: Tri Degroot Diet: Advance to usual diet Activity on Discharge: As tolerated Stand Alone Forms: Patient Portal Discharge page Print Language: Tuvaluan Activity Restrictions/Additional Instructions: Follow up with your PCP. Call Your Doctor If: ? ? -Your temperature exceeds 101.5? F? ? ? -You experience excessive abdominal pain ? ? -You experience continued vomiting/nausea and are unable to keep down any oral intake Care Plan Goals: Return to baseline health and resume normal activities. Health Concerns: abdominal pain Plan of Treatment: Supportive, pain meds and observation Follow up with PCP Assessment: Improved Patient Instructions: Abdominal Pain (ED)
[2025-09-22 10:49] VITALS: BP 121/68; PULSE 70; RESP 18; O2SAT 96
== END 2025-09-22 10:52 | disposition home or self-care (01) ==
LOC: HO.ED 16:27 → HO.EDOVER 09-22 01:05 → HO.S3 09-22 10:06
PROVIDERS: Emergency Medicine; Admitting Provider Surgery; Emergency Provider Emergency Medicine; Visit Provider Surgery
DX: R10.11 Right upper quadrant pain (principal); K80.20 Calculus of gallbladder without cholecystitis without obstruction; D25.9 Leiomyoma of uterus, unspecified; J45.909 Unspecified asthma, uncomplicated; Z79.899 Other long term (current) drug therapy; Z79.51 Long term (current) use of inhaled steroids; Z71.3 Dietary counseling and surveillance
CPT/HCPCS: 36415; 74176; 76705; 76830; 76856; 80048; 80076; 80307; 81001; 83690; 83735; 84702; 85025; 86140; 93975; 96361; 96365; 96375; 96376; 99221; 99285; J0737; J1171; J1885; J2270; J2405; J2543; J7120

== ENCOUNTER → 2025-09-21 15:11 | Outpatient (BNV) | payer OTHER, SELFPAY | PROVIDERS: Emergency Provider Emergency Medicine; Visit Provider Radiology Diagnostic Radiology | DX: D25.9 Leiomyoma of uterus, unspecified (principal); R10.31 Right lower quadrant pain | CPT/HCPCS: 76830; 76856 ==

== ENCOUNTER → 2025-09-22 00:55 | Outpatient (BNV) | payer OTHER, SELFPAY | PROVIDERS: Admitting Provider Surgery; Emergency Provider Emergency Medicine; Visit Provider Physician Assistant Surgical | DX: R10.11 Right upper quadrant pain (principal) | CPT/HCPCS: 99222 ==